=== PATIENT | male | born 1945 | race Caucasian/White ===

== ENCOUNTER 2020-03-29 11:28 | Inpatient (IN) | payer MEDICARE, MEDICAID ==
[~2020-03-29] VITALS: Ht 182.9 cm; Wt 105.7 kg
[2020-03-29 11:35] VITALS: BP 222/114
[2020-03-29] MEDS ORDERED: CYMBALTA30 MG ORAL (11:38)
[2020-03-29] MEDS ORDERED: DEPAKOTE250 MG PO (11:38)
[2020-03-29] MEDS ORDERED: FAMOTIDINE20 MG ORAL (11:38)
[2020-03-29] MEDS ORDERED: DEBROX15 M1 BOTH EARS (11:38)
[2020-03-29] MEDS ORDERED: Omnipaque-300 100ml vial INJ PRN (11:45)
[2020-03-29] MEDS ORDERED: cefTRIAXone 1 GM in NS 55 ML IVPB ONE (11:45)
--- NOTE | 2020-03-29 11:45 | NUR ---
ED Nurse Note: IV line was established on right AC 18ga, blood collected sent to lab
[2020-03-29] MEDS ORDERED: NAMENDA10 MG ORAL (11:46)
[2020-03-29] MEDS ORDERED: HYDROXYZINE HCL10 M1 PO (11:46)
[2020-03-29] MEDS ORDERED: TIMOPTIC 0.5%1 DROP BOTH EYES (11:46)
[2020-03-29] MEDS ORDERED: TRAMADOL HCL50 MG ORAL (11:46)
[2020-03-29] MEDS ORDERED: PROSCAR5 MG ORAL (11:46)
[2020-03-29] MEDS ORDERED: SYNTHROID100 MCG ORAL (11:46)
[2020-03-29] MEDS ORDERED: LORATADINE10 M1 PO (11:46)
[2020-03-29] MEDS ORDERED: GLUCOPHAGE500 MG ORAL (11:46)
[2020-03-29] MEDS ORDERED: FLOMAX0.4 MG ORAL (11:46)
[2020-03-29] MEDS ORDERED: MELATONIN5 M5 ORAL (11:46)
--- NOTE | 2020-03-29 11:48 | Emergency Room Report ---
History of Present Illness General Chief Complaint: Generalized Weakness Source: Patient Present Illness HPI 74-year-old male history of CVA, hypertension, presents with dysuria x4 days generalized weakness, subjective fever/chills, no known aggravating relieving factors endorses some suprapubic pain, severity is mild, intermittent, no diarrhea no cough no congestion patient presents for evaluation treatment Allergies: Coded Allergies: ASPIRIN (Verified Allergy, Unknown, 03/29/20) ENOXAPARIN (Verified Allergy, Unknown, 03/29/20) HEPARIN (Verified Allergy, Unknown, 03/29/20) PEANUT (Verified Allergy, Unknown, 03/29/20) PENICILLINS (Verified Allergy, Unknown, 03/29/20) Uncoded Allergies: SEAFOOD (Allergy, Unknown, 03/29/20) COVID-19 Screening Contact w/high risk pt: No Experienced COVID-19 symptoms?: No COVID-19 Testing performed SENIOR STRATEGY MANAGER: No Patient History Past Medical History: see triage record Reviewed Nursing Documentation: PMH: Agreed; PSxH: Agreed Nursing Documentation-PMH Past Medical History: No History, Except For Review of Systems All Other Systems: negative except mentioned in HPI Physical Exam Vital Signs Date Time Temp Pulse Resp B/P (MAP) Pulse Ox O2 Delivery O2 Flow Rate FiO2 03/29/20 11:20 73 16 190/100 (130) 98 Room Air Sp02 EP Interpretation: reviewed, normal General Appearance: well appearing, no apparent distress, alert Head: normocephalic, atraumatic Eyes: bilateral eye PERRL, bilateral eye EOMI ENT: uvula midline, moist mucus membranes Neck: supple, thyroid normal, supple/symm/no masses Respiratory: lungs clear, no respiratory distress, no retraction, no accessory muscle use Cardiovascular #1: normal peripheral pulses, regular rate, rhythm, no edema, no gallop, no murmur Gastrointestinal: soft, no guarding, no rebound, tenderness - Suprapubically Genitourinary: no CVA tenderness Musculoskeletal: normal inspection Neurologic: alert, responsive Psychiatric: mood/affect normal Skin: no rash, warm/dry Medical Decision Making Diagnostic Impression: Primary Impression: Episode of generalized weakness Additional Impression: UTI (urinary tract infection) Qualified Codes: N30.00 - Acute cystitis without hematuria ER Course 74-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 Pathak Laboratory Tests Test 03/29/20 11:50 03/29/20 13:30 White Blood Count 14.8 K/UL (4.8-10.8) H Red Blood Count 6.42 M/UL (4.70-6.10) H Hemoglobin 19.4 G/DL (14.2-18.0) *H Hematocrit 57.8 % (42.0-52.0) H Mean Corpuscular Volume 90 FL (80-99) Mean Corpuscular Hemoglobin 30.2 PG (27.0-31.0) Mean Corpuscular Hemoglobin Concent 33.5 G/DL (32.0-36.0) Red Cell Distribution Width 13.6 % (11.6-14.8) Platelet Count 170 K/UL (150-450) Mean Platelet Volume 6.6 FL (6.5-10.1) Neutrophils (%) (Auto) 79.6 % (45.0-75.0) H Lymphocytes (%) (Auto) 15.7 % (20.0-45.0) L Monocytes (%) (Auto) 4.4 % (1.0-10.0) Eosinophils (%) (Auto) 0.0 % (0.0-3.0) Basophils (%) (Auto) 0.3 % (0.0-2.0) Prothrombin Time 10.7 SEC (9.30-11.50) Prothrombin Time INR 1.0 (0.9-1.1) Activated Partial Thromboplast Time 28 SEC (23-33) Sodium Level 130 MMOL/L (136-145) L Potassium Level 4.2 MMOL/L (3.5-5.1) Chloride Level 95 MMOL/L (98-107) L Carbon Dioxide Level 27 MMOL/L (21-32) Anion Gap 9 mmol/L (5-15) Blood Urea Nitrogen 14 mg/dL (7-18) Creatinine 1.0 MG/DL (0.55-1.30) Estimated Glomerular Filtration Rate > 60 mL/min (>60) Glucose Level 188 MG/DL (74-106) H Lactic Acid Level 1.20 mmol/L (0.4-2.0) Calcium Level 8.9 MG/DL (8.5-10.1) Phosphorus Level 2.9 MG/DL (2.5-4.9) Magnesium Level 1.7 MG/DL (1.8-2.4) L Total Bilirubin 0.6 MG/DL (0.2-1.0) Aspartate Amino Transferase (AST) 13 U/L (15-37) L Alanine Aminotransferase (ALT) 8 U/L (12-78) L Alkaline Phosphatase 85 U/L (46-116) Total Creatine Kinase 31 U/L (26-308) Troponin I 0.001 ng/mL (0.000-0.056) Pro-B-Type Natriuretic Peptide 2896 pg/mL (0-125) H Total Protein 7.9 G/DL (6.4-8.2) Albumin 3.3 G/DL (3.4-5.0) L Globulin 4.6 g/dL Albumin/Globulin Ratio 0.7 (1.0-2.7) L Lipase 63 U/L (73-393) L Urine Color Pale yellow Urine Appearance Slightly cloudy Urine pH 8 (4.5-8.0) Urine Specific [place] 1.010 (1.005-1.035) Urine Protein 1+ (NEGATIVE) H Urine Glucose (UA) 1+ (NEGATIVE) H Urine Ketones Negative (NEGATIVE) Urine Blood 3+ (NEGATIVE) H Urine Nitrite Negative (NEGATIVE) Urine Bilirubin Negative (NEGATIVE) Urine Urobilinogen Normal MG/DL (0.0-1.0) Urine Leukocyte Esterase 3+ (NEGATIVE) H Urine RBC 0-2 /HPF (0 - 0) H Urine WBC 20-30 /HPF (0 - 0) H Urine Squamous Epithelial Cells Occasional /LPF Urine Bacteria Few /HPF (NONE) Microbiology Date/Time Source Procedure Growth Status 03/29/20 11:50 Nasopharynx SARS-CoV-2 RdRp Gene Assay - Final Complete EKG Diagnostic Results Troponin ordered: Yes When was troponin ordered?: Mar 29, 2020 EKG Time: 11:43 EP Interpretation: NSR, rate 94, QTc 432, no acute escalations, left axis deviation Rhythm Strip Diag. Results Rhythm Strip Time: 14:31 EP Interpretation: yes Rate: 95 Rhythm: NSR, no PVC's, no ectopy Chest X-Ray Diagnostic Results Chest X-Ray Diagnostic Results : Chest X-Ray Ordered: Yes # of Views/Limited/Complete: 1 View Indication: Chest Pain EP Interpretation: Yes Interpretation: no consolidation, no effusion, no pneumothorax, no acute cardiopulmonary disease Impression: No acute disease Electronically Signed by: Geovani Lopez MD CT/MRI/US Diagnostic Results CT/MRI/US Diagnostic Results : Impression Procedure: CT Abdomen Pelvis w/Contrast Clinical Indication: Abdominal pain Technique: No oral contrast utilized, per emergency room physician request IV administration nonionic contrast. Venous phase spiral acquisition obtained through the abdomen and pelvis. Multiplanar reconstructions were generated. Total dose length product 1000 mGycm. CTDIvol(s) 19 mGy. Dose reduction achieved using automated exposure control Comparison: none Findings: Lack of enteric contrast limits assessment of the GI tract. No evidence of diverticulosis or diverticulitis. The appendix is normal. No small bowel distention. No free or loculated intraperitoneal gas or fluid. Surgical clips are seen in th e anterior peritoneal space. The distal esophagus, stomach, duodenum are unremarkable. The gallbladder has been removed. No biliary ductal dilatation. The pancreas, spleen, adrenals, kidneys are unremarkable. The bladder demonstrates mild wall thickening which in part may be an artifact of under distention. The prostate is unremarkable. The lung bases demonstrate suggestion of mild pulmonary venous congestion. The heart is borderline enlarged. There is bilateral gynecomastia. The bones demonstrate degenerative spondylosis changes. Impression: Limited assessment of the GI tract, due to lack of enteric contrast administration. Equivocal mild urinary bladder wall thickening, could in part be an artifact of under distention but cystitis possible. Correlate with clinical findings Evidence of prior cholecystectomy Borderline cardiomegaly with suggestion of mild pulmonary venous congestion Incidental findings as noted, including bilateral gynecomastia, degenerative spondylosis The CT scanner at [facility] is accredited by the [employer] and the scans are performed using protocols designed to limit radiation exposure to as low as reasonably achievable to attain images of sufficient resolution adequate for diagnostic evaluation. Dictated By: Sadiq Atkinson MD Electronically Signed By:Sadiq Atkinson MD Signed Date/Time03/29/20 [id number] CC: Geovani Lopez MD Procedure: CT Head no Contrast Indications: Headache Technique: Spiral acquisitions obtained through the brain. Angled axial and coronal 5 x 5 mm slices were reconstructed. Total dose length product 1356 mGycm. CTDI vol(s) 53 x 2 mGy. Dose reduction achieved using automated exposure control Comparison: None. Findings: There is age-related enlargement of the ventricles and extra axial CSF spaces. There is periventricular deep white matter low-attenuation, consistent with chronic microvascular ischemic changes. The eli-white differentiation is otherwise unremarkable. No acute intracranial hemorrhage or edema, mass effect, nor midline shift. The mastoids are clear. The calvarium is intact. Visualized orbits and sinuses are unremarkable. Impression: Chronic and age-related changes Negative for acute intracranial bleed or mass effect The CT scanner at [facility] is accredited by the [employer] and the scans are performed using protocols designed to limit radiation exposure to as low as reasonably achievable to attain images of sufficient resolution adequate for diagnostic evaluation. Indications: Last Vital Signs Date Time Temp Pulse Resp B/P (MAP) Pulse Ox O2 Delivery O2 Flow Rate FiO2 03/29/20 11:20 73 16 190/100 (130) 98 Room Air Disposition: ADMITTED INPATIENT Condition: Stable Geovani Lopez MD Mar 29, 2020 11:48
[2020-03-29] MEDS ORDERED: Labetalol 5mg/ml 20ml vial IV ONE (12:00)
--- NOTE | 2020-03-29 12:00 | NUR ---
ED Nurse Note: Patient arrived with RA 26 from SNF due to onset of weakness. Patient presented extremely weak, sleepy. Patient AAO x3, BP 222/114 other VSS at this time.
[2020-03-29 12:25] LABS: BASOPHILS % (AUTO) 0.3 % (0.0-2.0); HEMATOCRIT 57.8 % (42.0-52.0); LYMPHOCYTES % (AUTO) 15.7 % (20.0-45.0); MEAN CORPUSCULAR VOLUME 90 FL (80-99); MONOCYTES % (AUTO) 4.4 % (1.0-10.0); NEUTROPHILS % (AUTO) 79.6 % (45.0-75.0); PLATELET COUNT 170 K/UL (150-450); RED BLOOD COUNT 6.42 M/UL (4.70-6.10); RED CELL DISTRIBUTION WIDTH 13.6 % (11.6-14.8); WHITE BLOOD COUNT 14.8 K/UL (4.8-10.8)
[2020-03-29 12:28] LABS: HEMOGLOBIN 19.4 G/DL (14.2-18.0)
[2020-03-29 12:30] LABS: ANION GAP 9 mmol/L (5-15); BLOOD UREA NITROGEN 14 mg/dL (7-18); CALCIUM 8.9 MG/DL (8.5-10.1); CARBON DIOXIDE 27 MMOL/L (21-32); CHLORIDE 95 MMOL/L (98-107); POTASSIUM 4.2 MMOL/L (3.5-5.1); SODIUM 130 MMOL/L (136-145)
[2020-03-29 12:40] LABS: ALANINE AMINOTRANSFERASE 8 U/L (12-78); ALBUMIN 3.3 G/DL (3.4-5.0); ALBUMIN/GLOBULIN RATIO 0.7 (1.0-2.7); ALKALINE PHOSPHATASE 85 U/L (46-116); ASPARTATE AMINO TRANSFERASE 13 U/L (15-37); BILIRUBIN,TOTAL 0.6 MG/DL (0.2-1.0); PHOSPHORUS 2.9 MG/DL (2.5-4.9)
[2020-03-29 12:54] LABS: CREATINE KINASE 31 U/L (26-308)
--- NOTE | 2020-03-29 12:57 | NUR ---
ED Nurse Note: Pt taken to CT head on sridhar
--- NOTE | 2020-03-29 13:24 | NUR ---
ED Nurse Note: Patient is back, NAD noted
--- NOTE | 2020-03-29 13:31 | NUR ---
ED Nurse Note: urine collected via straight cath sent to lab
[2020-03-29 13:51] LABS: APPEARANCE,URINE SLIGHTLY CLOUDY; BILIRUBIN, URINE NEGATIVE (NEGATIVE); COLOR,URINE PALE YELLOW; GLUCOSE, URINE (UA) 1+ (NEGATIVE); KETONES,URINE NEGATIVE (NEGATIVE); LEUKOCYTE ESTERASE ,URINE 3+ (NEGATIVE); NITRITE,URINE NEGATIVE (NEGATIVE); PH,URINE 8 (4.5-8.0); PROTEIN,URINE 1+ (NEGATIVE); UROBILINOGEN,URINE NORMAL MG/DL (0.0-1.0)
--- NOTE | 2020-03-29 14:21 | Diagnostic Imaging Report ---
Indications: Headache Technique: Spiral acquisitions obtained through the brain. Angled axial and coronal 5 x 5 mm slices were reconstructed. Total dose length product 1356 mGycm. CTDI vol(s) 53 x 2 mGy. Dose reduction achieved using automated exposure control Comparison: None. Findings: There is age-related enlargement of the ventricles and extra axial CSF spaces. There is periventricular deep white matter low-attenuation, consistent with chronic microvascular ischemic changes. The eli-white differentiation is otherwise unremarkable. No acute intracranial hemorrhage or edema, mass effect, nor midline shift. The mastoids are clear. The calvarium is intact. Visualized orbits and sinuses are unremarkable. Impression: Chronic and age-related changes Negative for acute intracranial bleed or mass effect The CT scanner at [facility] is accredited by the [employer] and the scans are performed using protocols designed to limit radiation exposure to as low as reasonably achievable to attain images of sufficient resolution adequate for diagnostic evaluation. Indications: Technique: Spiral acquisitions obtained through the brain. Angled axial and coronal 5 x 5 mm slices were reconstructed. Total dose length product 1356 mGycm. CTDI vol(s) 53 x 2 mGy. Dose reduction achieved using automated exposure control Comparison: Findings: Impression: The CT scanner at [facility] is accredited by the [employer] and the scans are performed using protocols designed to limit radiation exposure to as low as reasonably achievable to attain images of sufficient resolution adequate for diagnostic evaluation.
--- NOTE | 2020-03-29 14:28 | Diagnostic Imaging Report ---
Clinical Indication: Abdominal pain Technique: No oral contrast utilized, per emergency room physician request IV administration nonionic contrast. Venous phase spiral acquisition obtained through the abdomen and pelvis. Multiplanar reconstructions were generated. Total dose length product 1000 mGycm. CTDIvol(s) 19 mGy. Dose reduction achieved using automated exposure control Comparison: none Findings: Lack of enteric contrast limits assessment of the GI tract. No evidence of diverticulosis or diverticulitis. The appendix is normal. No small bowel distention. No free or loculated intraperitoneal gas or fluid. Surgical clips are seen in the anterior peritoneal space. The distal esophagus, stomach, duodenum are unremarkable. The gallbladder has been removed. No biliary ductal dilatation. The pancreas, spleen, adrenals, kidneys are unremarkable. The bladder demonstrates mild wall thickening which in part may be an artifact of under distention. The prostate is unremarkable. The lung bases demonstrate suggestion of mild pulmonary venous congestion. The heart is borderline enlarged. There is bilateral gynecomastia. The bones demonstrate degenerative spondylosis changes. Impression: Limited assessment of the GI tract, due to lack of enteric contrast administration. Equivocal mild urinary bladder wall thickening, could in part be an artifact of under distention but cystitis possible. Correlate with clinical findings Evidence of prior cholecystectomy Borderline cardiomegaly with suggestion of mild pulmonary venous congestion Incidental findings as noted, including bilateral gynecomastia, degenerative spondylosis The CT scanner at [facility] is accredited by the [employer] and the scans are performed using protocols designed to limit radiation exposure to as low as reasonably achievable to attain images of sufficient resolution adequate for diagnostic evaluation.
[2020-03-29 14:35] VITALS: BP 196/108
--- NOTE | 2020-03-29 16:31 | Diagnostic Imaging Report ---
Indication: Shortness of breath Technique: One view of the chest Comparison: none Findings: Lungs and pleural spaces are clear. Heart size is normal. Impression: No acute process
[2020-03-29 17:17] VITALS: BP 178/103
--- NOTE | 2020-03-29 17:36 | NUR ---
ED Nurse Note: Arias catheter was placed 16F, patient toklerated procedure well
[2020-03-29] MEDS ORDERED: Albuterol/Ipratropium 3ml neb HHN PRN (18:00)
[2020-03-29] MEDS ORDERED: Enalaprilat 2.5mg/2ml Inj IV PRN (18:00)
[2020-03-29] MEDS ORDERED: Labetalol 5mg/ml 20ml vial IV PRN (18:00)
[2020-03-29] MEDS ORDERED: dilTIAZem HCl 25mg/5ml Inj IV PRN (18:00)
[2020-03-29] MEDS ORDERED: Nitroglycerin Subl 0.4mg tab SL PRN (18:00)
[2020-03-29] MEDS ORDERED: Memantine 10mg tab ORAL SCH (18:00)
--- NOTE | 2020-03-29 18:40 | NUR ---
ED Nurse Note: report was given to MONSTER Sloan.
--- NOTE | 2020-03-29 18:45 | NUR ---
ED Nurse Note: Patient was admited to TELE due to generalized weakness, uncontrolled hypertension. Patient waqs transfered to the unit via gurney by ACLS protocol. Patient weak, but AAO x3, BP 197/108, other VSS at this time, has even non labnored breathing, sating 99% on RA.
--- NOTE | 2020-03-29 18:46 | NUR ---
NURSE NOTES: Pt transferred from ED via gurney and received report from MONSTER Love. Pt AOX2; able to make needs known. Pt changed to hospital gown and placed quality assurance monitor final; no belongings; skin assessment done and noted with stage 1 bilateral buttocks and bilateral heels. Pt came with f/c draining well to gravity with clear yellow urine; Peripheral IV line on R AC; patent and intact. Pt made comfortable; repositioned and call light within reach; bed in low position and locked. Will endorse plan of care.
--- NOTE | 2020-03-29 19:25 | NUR ---
NURSE HAND-OFF REPORT: Important Events on Shift:new admission Patient Status: hypertensive Diet: CCHO medium Pending Orders: n/a Pending Results/Labs:n/a Pending MD notification:n/a Latest Vital Signs: Temperature 98.1 , Pulse 98 , B/P 178 /103 , Respiratory Rate 20 , O2 SAT 87 , Room Air, O2 Flow Rate . Vital Sign Comment: hypertensive EKG Rhythm: Sinus Rhythm Rhythm change?: MD Notified?: - MD Response: Latest Valladares Fall Score: Fall Risk: Safety Measures: Call light , Bed Alarm , Side Rails , Bed position . Fall Precautions: Report given to :MONSTER Roy
--- NOTE | 2020-03-29 19:30 | NUR ---
NURSE NOTES: Received pt and report from MONSTER Almeida. Observed pt resting in bed with both eyes closed; arousable to voice. Pt is A/Ox2-3. lunchroom monitor is in placed; pt is NSR. IV site intact, asymptomatic and patent. Bed is in the lowest position and locked. Call light and bedside table is within reach. No signs/symptoms of acute distress noted. Received orders from Dr. Frazier. Will note and carry out.
[2020-03-29 20:00] VITALS: BP 166/104
[2020-03-29] MEDS: timoloL maleate 0.5% Op Soln 2.5ml BOTH EYES SCH (20:28)
[2020-03-29] MEDS: Memantine 10mg tab ORAL SCH (20:28)
--- NOTE | 2020-03-29 21:05 | History & Physical ---
History and Physical History & Physicial EKG: NSR with 1st degree AV block, VR 94, PVC, LVH, left anterior fascicular block Jacob Tavera MD Mar 29, 2020 21:05
--- NOTE | 2020-03-29 21:21 | NUR ---
NURSE NOTES: Received orders from Dr. Tavera. Will note and carry out.
[2020-03-29] MEDS: Aztreonam Inj 1 GM in NS 50 ML IVPB SCH (21:52)
[2020-03-29] MEDS: NovoLOG Insulin Flexpen SUBQ SCH (21:55)
[2020-03-30] VITALS: BP 159/92
[2020-03-30 01:52] LABS: BILIRUBIN, URINE 1+ (NEGATIVE); GLUCOSE, URINE (UA) NEGATIVE (NEGATIVE); KETONES,URINE 1+ (NEGATIVE); LEUKOCYTE ESTERASE ,URINE 3+ (NEGATIVE); NITRITE,URINE NEGATIVE (NEGATIVE); PH,URINE 5 (4.5-8.0); PROTEIN,URINE 3+ (NEGATIVE); UROBILINOGEN,URINE 4 MG/DL (0.0-1.0)
[2020-03-30 03:00] LABS: APPEARANCE,URINE CLOUDY; COLOR,URINE YELLOW
[2020-03-30 04:00] VITALS: BP 154/90
[2020-03-30] MEDS: Aztreonam Inj 1 GM in NS 50 ML IVPB SCH ×3 (06:00→21:40)
[2020-03-30] MEDS: NovoLOG Insulin Flexpen SUBQ SCH ×4 (06:01→21:00)
--- NOTE | 2020-03-30 06:32 | NUR ---
NURSE NOTES: Informed Dr. Frazier that pt is in SR w/ 1st degree HB. Pt is asymptomatic. Awaiting call back.
--- NOTE | 2020-03-30 07:18 | NUR ---
NURSE HAND-OFF REPORT: Important Events on Shift: Pt was admitted for Weakness/UTI. Notified Dr. Frazier that pt is in SR w/ 1st degree HB. Dr. Frazier ordered 2D Echo for today. Patient Status: Stable Diet: CCHO (M) Pending Orders: 2D echo Pending Results/Labs: N Pending notification: N Latest Vital Signs: Temperature 99.3 , Pulse 86 , B/P 154 /90 , Respiratory Rate 19 , O2 SAT 97 , Room Air, O2 Flow Rate . EKG Rhythm: SR w/1st degree HB Rhythm change?: N MD Notified?: Y MD Response: 2D Echo ordered Latest Valladares Fall Score: 50 Fall Risk: High Risk Safety Measures: Call light Within Reach, Bed Alarm Zone 1, Side Rails Side Rails x2, Bed position Low and Locked. Fall Precautions: Yellow Socks Yellow Gown Door Sign Patient Fall Education Report given MONSTER Wong.
[2020-03-30 07:33] LABS: BASOPHILS % (AUTO) 0.4 % (0.0-2.0); HEMATOCRIT 53.1 % (42.0-52.0); HEMOGLOBIN 17.6 G/DL (14.2-18.0); LYMPHOCYTES % (AUTO) 21.6 % (20.0-45.0); MEAN CORPUSCULAR VOLUME 91 FL (80-99); MONOCYTES % (AUTO) 9.2 % (1.0-10.0); NEUTROPHILS % (AUTO) 68.8 % (45.0-75.0); PLATELET COUNT 151 K/UL (150-450); RED BLOOD COUNT 5.81 M/UL (4.70-6.10); RED CELL DISTRIBUTION WIDTH 14.1 % (11.6-14.8); WHITE BLOOD COUNT 16.4 K/UL (4.8-10.8)
[2020-03-30 07:50] LABS: CHOLESTEROL 164 MG/DL (< 200); HDL CHOLESTEROL 50 MG/DL (40-60); TRIGLYCERIDES 132 MG/DL (30-150)
[2020-03-30 08:00] VITALS: BP 129/87
--- NOTE | 2020-03-30 08:00 | NUR ---
NURSE NOTES: Received pt and report from MONSTER Roy. Pt is sleeping in bed and on room air with no sign of sob or resp distress. Pt is AOx2 and weak phonation noted. Pt is on dust sampler with SR noted. Pt has right AC IV site that is c/d/i. Skin was assessed and has blanchable redness to sacral area was noted, optifoam was placed preventive. Pt has 16 fr patel that is draining to gravity, romy colored urine noted. Bed is in the lowest position and locked. Call light within reach, will continue with plan of care.
[2020-03-30] MEDS: Memantine 10mg tab ORAL SCH ×2 (09:30→21:00)
[2020-03-30] MEDS: DULoxetine 30mg cap ORAL SCH (09:30)
[2020-03-30] MEDS: Tamsulosin 0.4mg cap ORAL SCH (09:30)
[2020-03-30] MEDS: timoloL maleate 0.5% Op Soln 2.5ml BOTH EYES SCH ×2 (09:33→16:54)
--- NOTE | 2020-03-30 10:30 | History and Physical Report ---
DATE OF ADMISSION: 03/29/2020 CHIEF COMPLAINT: Generalized weakness. HISTORY OF PRESENT ILLNESS: This is a 74-year-old very unfortunate gentleman with past medical history significant for heart failure, major depression, history of dysphagia, GERD, primary osteoarthritis of the right ankle, contracted right elbow, dementia, bipolar disorder, chronic obstructive pulmonary disease, BPH, hypothyroidism, diabetes type 2, epilepsy, paraplegia, history of CVA, who presented to the hospital from nursing facility, [facility] due to the fever and chills. The patient noted by the nursing facility has spiking fever and some suprapubic fullness, mild intermittent pain. No diarrhea. No cough. No chest congestion. Shortly after initial evaluation in the emergency department, the patient was admitted to the hospital with sepsis, secondary to urinary tract infection as well as hematuria. PAST MEDICAL HISTORY/PAST SURGICAL HISTORY: As above, history of CVA, hypertension, dementia, bipolar disorder, COPD, BPH, hypothyroidism, diabetes type 2, major depression, epilepsy, paraplegia, heart failure. The patient has a history of fracture of the fifth lumbar vertebral body, sacrum fracture. MEDICATIONS: At [facility], please refer to medication reconciliation. ALLERGIES: To aspirin, heparin, penicillin, Lovenox, peanuts, peanut butter, and seafood. SOCIAL HISTORY: senior living resident. No smoking, alcohol, or drugs. FAMILY HISTORY: Noncontributory. REVIEW OF SYSTEMS: Very limited secondary to the patient's status. The patient is nonverbal, cannot follow commands appropriately. According to nursing facility documentation, the patient had fever and chills. No nausea or vomiting, diarrhea was reported. PHYSICAL EXAMINATION: VITAL SIGNS: On admission, temperature was 98.1, pulse of 105, respirations 20, blood pressure 178/103. GENERAL: The patient awake, responsive to painful and verbal commands, opens his eyes, however, cannot follow commands appropriately. HEAD AND NECK: Pupils are equal and reactive to light. Anicteric. NECK: Supple. No JVD. LUNGS: Good air entry. No wheezing or rhonchi. Decreased air in bases. HEART: S1, S2. Distant heart sounds. No murmurs or gallops. ABDOMEN: Soft, nondistended, nontender. Morbidly obese. Bowel sounds present. EXTREMITIES: No cyanosis, clubbing, or edema. NEUROLOGIC: Examination is very limited secondary to the patient's status. The patient is unable to follow commands, however, he is moving spontaneously extremities, lower extremities weaker than upper extremities, contracted lower extremities. RECTAL: Refused and deferred. GENITOURINARY: Refused and deferred. PSYCHIATRIC: Mood and affect is unable to obtain. LABORATORY AND DIAGNOSTIC DATA: Laboratory on admission, WBC of 14, hemoglobin is 19, hematocrit is 57, platelets is 170. PT of 10, INR 1.0, PTT of 28. Sodium 130, potassium 4.2, chloride 95, bicarb 27, BUN 14, creatinine 1.0, and glucose is 188. Lactic acid is 1.20. Magnesium is 1.7, total bilirubin of 0.6, phosphorus is 2.9. Troponin 0.01. ProBNP of 2896. Albumin is 3.3. Lipase is 63. UA has +1 protein, +1 glucose, negative ketone, +3 blood, 20 to 30 wbc, +3 leukocytes. COVID-19 rapid test is negative. Chest x-ray, no acute process. CT scan of the abdomen and pelvis noted the patient has lack of enteric contrast limits the assessment of the GI tract. No evidence of diverticulosis or diverticulitis. Appendix is normal. No small bowel distention, no free or loculated intraperitoneal gas or fluid. Surgical clips are seen in the anterior and peritoneal space. The distal esophagus, esophagus, stomach and duodenum are unremarkable. Gallbladder has been removed. Equivocal and mild urinary bladder wall thickening could be artifact. Evidence of prior cholecystectomy, borderline cardiomegaly with suggestion of mild pulmonary venous congestion. Incidental finding noted the patient has bilateral gynecomastia with degenerative spondylolysis. The patient's CT of the head, chronic and age-related changes, negative for acute intracranial bleeding or mass effect. ASSESSMENT: 1. Sepsis secondary to urinary tract infection. 2. History of CVA. 3. Prior history of heart failure. 4. Major depression disorder. 5. Diabetic type 2. 6. BPH. 7. Bipolar disorder. 8. COPD. 9. Hyponatremia. 10. Dehydration. 11. The patient has a history of hypothyroidism. PLAN: Admit the patient to monitor unit. We follow up with laboratory as well as culture. We will start the patient on broad-spectrum antibiotics with Azactam. We will follow up with blood glucose level monitoring, Accu-Cheks. Code status is DNR as per . We will follow up with Dr. Frazier from Pulmonary Critical Care and Dr. Kirk from Nephrology. Jacob Tavera M.D. DR: PREETI JOB#: [id number] CC:
--- NOTE | 2020-03-30 11:58 | NUR ---
CASE MANAGEMENT:REVIEW 74 YR OLD MALE BIBA FROM [facility] CC: GENERALIZED WEAKNESS SI: UTI 98.1 73 16 222/114 98% ON RA WBC+14.8 IS: 1L NS BOLUS IV ROCEPHIN IV LABETALOL IV HYDRALAZINE CT HEAD/ABD/PELVIS CXR : TO TELEMETRY
[2020-03-30 12:00] VITALS: BP 144/83
--- NOTE | 2020-03-30 12:54 | Consultation ---
Consult Note Consult Note Asked to evaluate at the request of Dr. Tavera for fluid and electrolyte management 74-year-old male history of CVA, hypertension, presents with dysuria x4 days generalized weakness, subjective fever/chills, no known aggravating relieving factors endorses some suprapubic pain, severity is mild, intermittent, no diarrhea no cough no congestion patient presents for evaluation treatment Allergies: Coded Allergies: ASPIRIN (Verified Allergy, Unknown, 03/29/20) ENOXAPARIN (Verified Allergy, Unknown, 03/29/20) HEPARIN (Verified Allergy, Unknown, 03/29/20) PEANUT (Verified Allergy, Unknown, 03/29/20) PENICILLINS (Verified Allergy, Unknown, 03/29/20) Uncoded Allergies: SEAFOOD (Allergy, Unknown, 03/29/20) COVID-19 Screening Contact w/high risk pt: No Experienced COVID-19 symptoms?: No COVID-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 The patient has a history of fracture of the fifth lumbar vertebral body, sacrum fracture. Assessment/Plan Severe dehydration Hyponatremia Sepsis, UTI BPH Depression, bipolar disease Hypothyroidism Hydrate Monitor electrolyte renal parameters Per orders Montana Kirk MD Mar 30, 2020 12:54
--- NOTE | 2020-03-30 13:02 | Consultation ---
History of Present Illness General Date patient seen: Mar 30, 2020 Chief Complaint: Generalized Weakness Present Illness HPI 74-year-old male with PMJ of CVA, hypertension, hypothyroid, DM, Dementia, contractures, [facility] resident presented to ER with dysuria x4 days, generalized weakness, some suprapubic pain. Pts systolic BP on presentation was 190 adn he had leukocytosis and pyuria. He is admitted for further management. Allergies: Coded Allergies: ASPIRIN (Verified Allergy, Unknown, 03/29/20) ENOXAPARIN (Verified Allergy, Unknown, 03/29/20) HEPARIN (Verified Allergy, Unknown, 03/29/20) PEANUT (Verified Allergy, Unknown, 03/29/20) PENICILLINS (Verified Allergy, Unknown, 03/29/20) Uncoded Allergies: SEAFOOD (Allergy, Unknown, 03/29/20) Medication History Scheduled Carbamide Peroxide (Debrox), 5 DROP BOTH EARS TWICE A DAY, (Reported) Divalproex Sodium* (Depakote*), 750 MG PO Q12HR, (Reported) Duloxetine Hcl* (Cymbalta*), 30 MG ORAL DAILY, (Reported) Famotidine* (Pepcid 20mg tablet*), 20 MG ORAL DAILY, (Reported) Finasteride* (Proscar*), 5 MG ORAL DAILY, (Reported) Levothyroxine Sodium* (Synthroid*), 100 MCG ORAL DAILY, (Reported) Loratadine (Claritin*), 10 MG PO DAILY, (Reported) Memantine Hcl* (Namenda*), 10 MG ORAL TWICE A DAY, (Reported) Metformin Hcl* (Glucophage*), 1,000 MG ORAL DAILY, (Reported) Tamsulosin HCl (Flomax), 0.4 MG ORAL DAILY, (Reported) Timolol Maleate (Timolol Maleate), 1 DROP BOTH EYES TWICE A DAY, (Reported) Scheduled PRN Melatonin (Melatonin), 5 MG ORAL BEDTIME PRN for Insomnia, (Reported) Tramadol Hcl* (Ultram*), 50 MG ORAL Q4HR PRN for For Pain, (Reported) Miscellaneous Medications Hydroxyzine Hcl (Hydroxyzine Hcl), 5 MG PO, (Reported) Patient History Healthcare decision maker Resuscitation status Advanced Directive on File Past Medical/Surgical History Past Medical/Surgical History: (1) Seizure disorder (2) Depression (3) Hypothyroidism (4) Diabetes mellitus (5) Alzheimer's dementia (6) At high risk for aspiration Family History Family History: (1) Alzheimer's dementia (2) Diabetes mellitus (3) Hypothyroidism (4) Depression (5) Seizure disorder Review of Systems All Other Systems: negative except mentioned in HPI Physical Exam General Appearance: WD/WN, no apparent distress, alert Lines, tubes and drains: peripheral HEENT: normocephalic, anicteric Respiratory/Chest: chest wall non-tender, lungs clear Cardiovascular/Chest: normal peripheral pulses, normal rate, regular rhythm Abdomen: normal bowel sounds, non tender, soft, no organomegaly, no mass Genitourinary/Rectal: normal genital exam, normal rectal exam Last 24 Hour Vital Signs Date Time Temp Pulse Resp B/P (MAP) Pulse Ox O2 Delivery O2 Flow Rate FiO2 03/30/20 12:00 99.0 75 18 144/83 (103) 96 03/30/20 12:00 76 03/30/20 09:30 83 129/87 03/30/20 09:00 Room Air 03/30/20 08:00 86 03/30/20 08:00 99.5 83 20 129/87 (101) 95 03/30/20 04:00 86 03/30/20 04:00 99.3 86 19 154/90 (111) 97 03/30/20 00:00 98.8 97 20 159/92 (114) 97 03/30/20 00:00 100 03/29/20 21:53 93 161/94 03/29/20 20:00 100 03/29/20 20:00 99.3 105 20 166/104 (124) 99 03/29/20 19:13 Room Air 03/29/20 18:45 98.1 20 178/103 87 Room Air 03/29/20 17:17 98.1 20 178/103 87 Room Air 03/29/20 15:41 177/124 03/29/20 14:35 98.1 98 20 196/108 98 Room Air Intake and Output 03/29/20 03/30/20 19:00 07:00 Intake Total 1000 ml Output Total 250 ml Balance 1000 ml -250 ml IV Total 1000 ml Output Urine Total 250 ml Laboratory Tests Test 03/29/20 13:30 11/4/20 21:45 03/30/20 01:40 03/30/20 05:50 Urine Color Pale yellow Yellow Urine Appearance Slightly cloudy Cloudy Urine pH 8 (4.5-8.0) 5 (4.5-8.0) Urine Specific [place] 1.010 (1.005-1.035) 1.015 (1.005-1.035) Urine Protein 1+ (NEGATIVE) H 3+ (NEGATIVE) H Urine Glucose (UA) 1+ (NEGATIVE) H Negative (NEGATIVE) Urine Ketones Negative (NEGATIVE) 1+ (NEGATIVE) H Urine Blood 3+ (NEGATIVE) H 5+ (NEGATIVE) H Urine Nitrite Negative (NEGATIVE) Negative (NEGATIVE) Urine Bilirubin Negative (NEGATIVE) 1+ (NEGATIVE) H Urine Urobilinogen Normal MG/DL (0.0-1.0) 4 MG/DL (0.0-1.0) H Urine Leukocyte Esterase 3+ (NEGATIVE) H 3+ (NEGATIVE) H Urine RBC 0-2 /HPF (0 - 0) H Tntc /HPF (0 - 0) H Urine WBC 20-30 /HPF (0 - 0) H Tntc /HPF (0 - 0) H Urine Squamous Epithelial Cells Occasional /LPF None /LPF (NONE/OCC) Urine Bacteria Few /HPF (NONE) Moderate /HPF (NONE) H POC Whole Blood Glucose Pending 162 MG/DL (74-106) H Urine Ictotest Negative (NEGATIVE) Urine Osmolality 693 mOsm/kg (429-449) H Urine Random Sodium < 20 mmol/L (20-110) L White Blood Count 16.4 K/UL (4.8-10.8) H Red Blood Count 5.81 M/UL (4.70-6.10) Hemoglobin 17.6 G/DL (14.2-18.0) Hematocrit 53.1 % (42.0-52.0) H Mean Corpuscular Volume 91 FL (80-99) Mean Corpuscular Hemoglobin 30.3 PG (27.0-31.0) Mean Corpuscular Hemoglobin Concent 33.2 G/DL (32.0-36.0) Red Cell Distribution Width 14.1 % (11.6-14.8) Platelet Count 151 K/UL (150-450) Mean Platelet Volume 7.4 FL (6.5-10.1) Neutrophils (%) (Auto) 68.8 % (45.0-75.0) Lymphocytes (%) (Auto) 21.6 % (20.0-45.0) Monocytes (%) (Auto) 9.2 % (1.0-10.0) Eosinophils (%) (Auto) 0.0 % (0.0-3.0) Basophils (%) (Auto) 0.4 % (0.0-2.0) Prothrombin Time 10.9 SEC (9.30-11.50) Prothromb Time International Ratio 1.0 (0.9-1.1) Activated Partial Thromboplast Time 25 SEC (23-33) Osmolality 300 mOsm/kg (297-317) Uric Acid 4.4 MG/DL (2.6-7.2) C-Reactive Protein, Quantitative 0.9 mg/dL (0.00-0.90) Triglycerides Level 132 MG/DL (30-150) Cholesterol Level 164 MG/DL (< 200) LDL Cholesterol 88 mg/dL (<100) HDL Cholesterol 50 MG/DL (40-60) Cholesterol/HDL Ratio 3.3 (3.3-4.4) Thyroid Stimulating Hormone (TSH) 0.431 uiU/mL (0.358-3.740) Free Thyroxine 1.30 NG/DL (0.76-1.46) Free Triiodothyronine 1.4 pg/mL (2.3-4.2) L Cortisol Pending Test 03/30/20 12:00 POC Whole Blood Glucose Pending Microbiology Date/Time Source Procedure Growth Status 03/29/20 17:44 Rectum Received 03/29/20 13:30 Urine,Clean Catch Urine Culture - Preliminary NO GROWTH AFTER 24 HOURS Resulted Height (Feet): 6 Height (Inches): 0.00 Weight (Pounds): 233 Medications Current Medications Medications (Trade) Dose Ordered Sig/Ayah Route PRN Reason Start Time Stop Time Status Last Admin Dose Admin Acetaminophen (Tylenol) 650 mg Q4H PRN ORAL FEVER 03/29/20 18:00 04/28/20 17:59 Albuterol/ Ipratropium (Albuterol/ Ipratropium) 3 ml Q4H PRN HHN Shortness of Breath 03/29/20 18:00 04/03/20 17:59 Aztreonam 1 gm/ Sodium Chloride 50 ml @ 100 mls/hr EVERY 8 HOURS IVPB 03/29/20 22:00 04/05/20 21:59 03/30/20 06:00 Carvedilol (Coreg) 3.125 mg EVERY 12 HOURS ORAL 03/29/20 22:00 04/28/20 21:59 03/30/20 09:30 Dextrose (Dextrose 50%) 25 ml Q30M PRN IV Hypoglycemia 03/29/20 21:30 06/27/20 21:29 Dextrose (Dextrose 50%) 50 ml Q30M PRN IV Hypoglycemia 03/29/20 21:30 06/27/20 21:29 Diltiazem HCl (Cardizem) 10 mg Q1H PRN IV heart rate more than 120, 03/29/20 18:00 04/28/20 17:59 Divalproex Sodium (Depakote) 750 mg Q12HR ORAL 03/29/20 21:00 04/28/20 20:59 03/30/20 09:31 Duloxetine HCl (Cymbalta) 30 mg DAILY ORAL 03/30/20 09:00 06/28/20 08:59 03/30/20 09:30 Enalaprilat (Vasotec) 2.5 mg Q6H PRN IV sbp more than 160 03/29/20 18:00 04/28/20 17:59 Finasteride (Proscar) 5 mg DAILY ORAL 03/30/20 09:00 06/28/20 08:59 03/30/20 09:30 Insulin Aspart (NovoLOG) BEFORE MEALS AND HS SUBQ 03/29/20 22:00 06/27/20 21:59 03/30/20 06:01 Iohexol (OMNIPAQUE-300 100ml) 100 ml NOW PRN INJ Radiology Procedure 03/29/20 11:45 03/31/20 11:44 Labetalol HCl (Normodyne) 20 mg Q1H PRN IV sbp more than 180 03/29/20 18:00 04/28/20 17:59 Levothyroxine Sodium (Synthroid) 100 mcg Q24H ORAL 03/30/20 06:30 04/29/20 06:29 03/30/20 06:01 Memantine (Namenda) 10 mg Q12HR ORAL 03/29/20 21:00 04/28/20 20:59 03/30/20 09:30 Nitroglycerin (Ntg) 0.4 mg Q5M PRN SL Prn Chest Pain 03/29/20 18:00 04/28/20 17:59 Ondansetron HCl (Zofran) 4 mg Q6H PRN IVP Nausea & Vomiting 03/29/20 18:00 04/28/20 17:59 Pantoprazole (Protonix) 40 mg DAILY ORAL 03/30/20 09:00 04/29/20 08:59 03/30/20 09:30 Polyethylene Glycol (Miralax) 17 gm DAILYPRN PRN ORAL Constipation 03/29/20 18:00 04/28/20 17:59 Tamsulosin HCl (Flomax) 0.4 mg DAILY ORAL 03/30/20 09:00 04/29/20 08:59 03/30/20 09:30 Temazepam (Restoril) 15 mg HSPRN PRN ORAL Insomnia 03/29/20 18:00 04/05/20 17:59 Timolol Maleate (timoloL maleate 0.5% Op Soln) 1 drop TWICE A DAY BOTH EYES 03/29/20 20:00 04/28/20 19:59 03/30/20 09:33 Assessment/Plan Problem List: (1) UTI (urinary tract infection) ICD Codes: N39.0 - Urinary tract infection, site not specified SNOMED: 20187505 Qualifiers: Qualified Codes: N30.00 - Acute cystitis without hematuria (2) Episode of generalized weakness ICD Codes: R53.1 - Weakness SNOMED: 10456953 (3) Uncontrolled hypertension ICD Codes: I10 - Essential (primary) hypertension SNOMED: 05336776, 21900317 (4) At high risk for aspiration ICD Codes: Z91.89 - Other specified personal risk factors, not elsewhere classified SNOMED: 464582861 (5) Seizure disorder ICD Codes: G40.909 - Epilepsy, unspecified, not intractable, without status epilepticus SNOMED: 907408979 (6) Hypothyroidism ICD Codes: E03.9 - Hypothyroidism, unspecified SNOMED: 63334880 (7) Depression ICD Codes: F32.9 - Major depressive disorder, single episode, unspecified SNOMED: 12490031 (8) Alzheimer's dementia ICD Codes: G30.9 - Alzheimer's disease, unspecified; F02.80 - Dementia in other diseases classified elsewhere without behavioral disturbance SNOMED: 12938539 (9) Diabetes mellitus ICD Codes: E11.9 - Type 2 diabetes mellitus without complications SNOMED: 06307402 Assessment/Plan: nice culture IV abx IV fluids check electrolytes sliding scale and diabetic diet swallow study and NPO for now dvt prophylaxis alf meds reviewed. dvt prophylaxis. Gregory Frazier MD Mar 30, 2020 13:02
--- NOTE | 2020-03-30 13:25 | Infectious Diseases Prog Note ---
Assessment/Plan Assessment/Plan ID consult was dictated Subjective Allergies: Coded Allergies: ASPIRIN (Verified Allergy, Unknown, 03/29/20) ENOXAPARIN (Verified Allergy, Unknown, 03/29/20) HEPARIN (Verified Allergy, Unknown, 03/29/20) PEANUT (Verified Allergy, Unknown, 03/29/20) PENICILLINS (Verified Allergy, Unknown, 03/29/20) Uncoded Allergies: SEAFOOD (Allergy, Unknown, 03/29/20) Objective Last 24 Hour Vital Signs Date Time Temp Pulse Resp B/P (MAP) Pulse Ox O2 Delivery O2 Flow Rate FiO2 03/30/20 12:00 99.0 75 18 144/83 (103) 96 03/30/20 12:00 76 03/30/20 09:30 83 129/87 03/30/20 09:00 Room Air 03/30/20 08:00 86 03/30/20 08:00 99.5 83 20 129/87 (101) 95 03/30/20 04:00 86 03/30/20 04:00 99.3 86 19 154/90 (111) 97 03/30/20 00:00 98.8 97 20 159/92 (114) 97 03/30/20 00:00 100 03/29/20 21:53 93 161/94 03/29/20 20:00 100 03/29/20 20:00 99.3 105 20 166/104 (124) 99 03/29/20 19:13 Room Air 03/29/20 18:45 98.1 20 178/103 87 Room Air 03/29/20 17:17 98.1 20 178/103 87 Room Air 03/29/20 15:41 177/124 03/29/20 14:35 98.1 98 20 196/108 98 Room Air Height (Feet): 6 Height (Inches): 0.00 Weight (Pounds): 233 Microbiology Date/Time Source Procedure Growth Status 03/29/20 17:44 Rectum Received 03/29/20 13:30 Urine,Clean Catch Urine Culture - Preliminary NO GROWTH AFTER 24 HOURS Resulted 03/29/20 11:50 Nasopharynx SARS-CoV-2 RdRp Gene Assay - Final Complete Laboratory Tests Test 03/29/20 13:30 03/29/20 21:45 03/30/20 01:40 11/5/20 05:50 Urine Color Pale yellow Yellow Urine Appearance Slightly cloudy Cloudy Urine pH 8 (4.5-8.0) 5 (4.5-8.0) Urine Specific [place] 1.010 (1.005-1.035) 1.015 (1.005-1.035) Urine Protein 1+ (NEGATIVE) H 3+ (NEGATIVE) H Urine Glucose (UA) 1+ (NEGATIVE) H Negative (NEGATIVE) Urine Ketones Negative (NEGATIVE) 1+ (NEGATIVE) H Urine Blood 3+ (NEGATIVE) H 5+ (NEGATIVE) H Urine Nitrite Negative (NEGATIVE) Negative (NEGATIVE) Urine Bilirubin Negative (NEGATIVE) 1+ (NEGATIVE) H Urine Urobilinogen Normal MG/DL (0.0-1.0) 4 MG/DL (0.0-1.0) H Urine Leukocyte Esterase 3+ (NEGATIVE) H 3+ (NEGATIVE) H Urine RBC 0-2 /HPF (0 - 0) H Tntc /HPF (0 - 0) H Urine WBC 20-30 /HPF (0 - 0) H Tntc /HPF (0 - 0) H Urine Squamous Epithelial Cells Occasional /LPF None /LPF (NONE/OCC) Urine Bacteria Few /HPF (NONE) Moderate /HPF (NONE) H POC Whole Blood Glucose Pending 162 MG/DL (74-106) H Urine Ictotest Negative (NEGATIVE) Urine Osmolality 693 mOsm/kg (429-449) H Urine Random Sodium < 20 mmol/L (20-110) L White Blood Count 16.4 K/UL (4.8-10.8) H Red Blood Count 5.81 M/UL (4.70-6.10) Hemoglobin 17.6 G/DL (14.2-18.0) Hematocrit 53.1 % (42.0-52.0) H Mean Corpuscular Volume 91 FL (80-99) Mean Corpuscular Hemoglobin 30.3 PG (27.0-31.0) Mean Corpuscular Hemoglobin Concent 33.2 G/DL (32.0-36.0) Red Cell Distribution Width 14.1 % (11.6-14.8) Platelet Count 151 K/UL (150-450) Mean Platelet Volume 7.4 FL (6.5-10.1) Neutrophils (%) (Auto) 68.8 % (45.0-75.0) Lymphocytes (%) (Auto) 21.6 % (20.0-45.0) Monocytes (%) (Auto) 9.2 % (1.0-10.0) Eosinophils (%) (Auto) 0.0 % (0.0-3.0) Basophils (%) (Auto) 0.4 % (0.0-2.0) Prothrombin Time 10.9 SEC (9.30-11.50) Prothromb Time International Ratio 1.0 (0.9-1.1) Activated Partial Thromboplast Time 25 SEC (23-33) Osmolality 300 mOsm/kg (297-317) Uric Acid 4.4 MG/DL (2.6-7.2) C-Reactive Protein, Quantitative 0.9 mg/dL (0.00-0.90) Triglycerides Level 132 MG/DL (30-150) Cholesterol Level 164 MG/DL (< 200) LDL Cholesterol 88 mg/dL (<100) HDL Cholesterol 50 MG/DL (40-60) Cholesterol/HDL Ratio 3.3 (3.3-4.4) Thyroid Stimulating Hormone (TSH) 0.431 uiU/mL (0.358-3.740) Free Thyroxine 1.30 NG/DL (0.76-1.46) Free Triiodothyronine 1.4 pg/mL (2.3-4.2) L Cortisol Pending Test 03/30/20 12:00 POC Whole Blood Glucose Pending Current Medications Medications (Trade) Dose Ordered Sig/Ayah Route PRN Reason Start Time Stop Time Status Last Admin Dose Admin Acetaminophen (Tylenol) 650 mg Q4H PRN ORAL FEVER 03/29/20 18:00 04/28/20 17:59 Albuterol/ Ipratropium (Albuterol/ Ipratropium) 3 ml Q4H PRN HHN Shortness of Breath 03/29/20 18:00 04/03/20 17:59 Aztreonam 1 gm/ Sodium Chloride 50 ml @ 100 mls/hr EVERY 8 HOURS IVPB 03/29/20 22:00 04/05/20 21:59 03/30/20 06:00 Barium Sulfate (Varibar Honey) 250 ml NOW PRN MC RAD 03/30/20 13:30 04/02/20 13:17 Barium Sulfate (Varibar [place]) 240 ml NOW PRN MC RAD 03/30/20 13:30 04/02/20 13:17 Barium Sulfate (Varibar Pudding) 230 ml NOW PRN MC RAD 03/30/20 13:30 04/02/20 13:17 Barium Sulfate (Varibar Thin Liquid powder) 148 gm NOW PRN MC RAD 03/30/20 13:30 04/02/20 13:17 Carvedilol (Coreg) 3.125 mg EVERY 12 HOURS ORAL 03/29/20 22:00 04/28/20 21:59 03/30/20 09:30 Dextrose (Dextrose 50%) 25 ml Q30M PRN IV Hypoglycemia 03/29/20 21:30 06/27/20 21:29 Dextrose (Dextrose 50%) 50 ml Q30M PRN IV Hypoglycemia 03/29/20 21:30 06/27/20 21:29 Diltiazem HCl (Cardizem) 10 mg Q1H PRN IV heart rate more than 120, 03/29/20 18:00 04/28/20 17:59 Divalproex Sodium (Depakote) 750 mg Q12HR ORAL 03/29/20 21:00 04/28/20 20:59 03/30/20 09:31 Duloxetine HCl (Cymbalta) 30 mg DAILY ORAL 03/30/20 09:00 06/28/20 08:59 03/30/20 09:30 Enalaprilat (Vasotec) 2.5 mg Q6H PRN IV sbp more than 160 03/29/20 18:00 04/28/20 17:59 Finasteride (Proscar) 5 mg DAILY ORAL 03/30/20 09:00 06/28/20 08:59 03/30/20 09:30 Insulin Aspart (NovoLOG) BEFORE MEALS AND HS SUBQ 03/29/20 22:00 06/27/20 21:59 03/30/20 06:01 Iohexol (OMNIPAQUE-300 100ml) 100 ml NOW PRN INJ Radiology Procedure 03/29/20 11:45 03/31/20 11:44 Labetalol HCl (Normodyne) 20 mg Q1H PRN IV sbp more than 180 03/29/20 18:00 04/28/20 17:59 Levothyroxine Sodium (Synthroid) 100 mcg Q24H ORAL 03/30/20 06:30 04/29/20 06:29 03/30/20 06:01 Memantine (Namenda) 10 mg Q12HR ORAL 03/29/20 21:00 04/28/20 20:59 03/30/20 09:30 Nitroglycerin (Ntg) 0.4 mg Q5M PRN SL Prn Chest Pain 03/29/20 18:00 04/28/20 17:59 Ondansetron HCl (Zofran) 4 mg Q6H PRN IVP Nausea & Vomiting 03/29/20 18:00 04/28/20 17:59 Pantoprazole (Protonix) 40 mg DAILY ORAL 03/30/20 09:00 04/29/20 08:59 03/30/20 09:30 Polyethylene Glycol (Miralax) 17 gm DAILYPRN PRN ORAL Constipation 03/29/20 18:00 04/28/20 17:59 Sodium Chloride 1,000 ml @ 75 mls/hr [id number] IV 03/30/20 13:30 04/29/20 13:29 Tamsulosin HCl (Flomax) 0.4 mg DAILY ORAL 03/30/20 09:00 04/29/20 08:59 03/30/20 09:30 Temazepam (Restoril) 15 mg HSPRN PRN ORAL Insomnia 03/29/20 18:00 04/05/20 17:59 Timolol Maleate (timoloL maleate 0.5% Op Soln) 1 drop TWICE A DAY BOTH EYES 03/29/20 20:00 04/28/20 19:59 03/30/20 09:33 Gaetano Fung MD Mar 30, 2020 13:25
[2020-03-30] MEDS ORDERED: Varibar Honey 250ml MC PRN (13:30)
[2020-03-30] MEDS ORDERED: Varibar Thin Liquid powder 148gm MC PRN (13:30)
[2020-03-30] MEDS ORDERED: Varibar Nectar 240ml MC PRN (13:30)
[2020-03-30] MEDS ORDERED: Varibar Pudding 230ml MC PRN (13:30)
--- NOTE | 2020-03-30 14:14 | Internal Med Progress Note ---
Subjective Physician Name Jacob Tavera Attending Physician Jacob Tavera MD Current Medications Medications (Trade) Dose Ordered Sig/Ayah Route PRN Reason Start Time Stop Time Status Last Admin Dose Admin Acetaminophen (Tylenol) 650 mg Q4H PRN ORAL FEVER 03/29/20 18:00 04/28/20 17:59 Albuterol/ Ipratropium (Albuterol/ Ipratropium) 3 ml Q4H PRN HHN Shortness of Breath 03/29/20 18:00 04/03/20 17:59 Aztreonam 1 gm/ Sodium Chloride 50 ml @ 100 mls/hr EVERY 8 HOURS IVPB 03/29/20 22:00 04/05/20 21:59 03/30/20 13:53 Barium Sulfate (Varibar Honey) 250 ml NOW PRN MC RAD 03/30/20 13:30 04/02/20 13:17 Barium Sulfate (Varibar [place]) 240 ml NOW PRN MC RAD 03/30/20 13:30 04/02/20 13:17 Barium Sulfate (Varibar Pudding) 230 ml NOW PRN MC RAD 03/30/20 13:30 04/02/20 13:17 Barium Sulfate (Varibar Thin Liquid powder) 148 gm NOW PRN MC RAD 03/30/20 13:30 04/02/20 13:17 Carvedilol (Coreg) 3.125 mg EVERY 12 HOURS ORAL 03/29/20 22:00 04/28/20 21:59 03/30/20 09:30 Dextrose (Dextrose 50%) 25 ml Q30M PRN IV Hypoglycemia 03/29/20 21:30 06/27/20 21:29 Dextrose (Dextrose 50%) 50 ml Q30M PRN IV Hypoglycemia 03/29/20 21:30 06/27/20 21:29 Diltiazem HCl (Cardizem) 10 mg Q1H PRN IV heart rate more than 120, 03/29/20 18:00 04/28/20 17:59 Divalproex Sodium (Depakote) 750 mg Q12HR ORAL 03/29/20 21:00 04/28/20 20:59 03/30/20 09:31 Duloxetine HCl (Cymbalta) 30 mg DAILY ORAL 03/30/20 09:00 06/28/20 08:59 03/30/20 09:30 Enalaprilat (Vasotec) 2.5 mg Q6H PRN IV sbp more than 160 03/29/20 18:00 04/28/20 17:59 Finasteride (Proscar) 5 mg DAILY ORAL 03/30/20 09:00 06/28/20 08:59 03/30/20 09:30 Insulin Aspart (NovoLOG) BEFORE MEALS AND HS SUBQ 03/29/20 22:00 06/27/20 21:59 03/30/20 06:01 Iohexol (OMNIPAQUE-300 100ml) 100 ml NOW PRN INJ Radiology Procedure 03/29/20 11:45 03/31/20 11:44 Labetalol HCl (Normodyne) 20 mg Q1H PRN IV sbp more than 180 03/29/20 18:00 04/28/20 17:59 Levothyroxine Sodium (Synthroid) 100 mcg Q24H ORAL 03/30/20 06:30 04/29/20 06:29 03/30/20 06:01 Memantine (Namenda) 10 mg Q12HR ORAL 03/29/20 21:00 04/28/20 20:59 03/30/20 09:30 Nitroglycerin (Ntg) 0.4 mg Q5M PRN SL Prn Chest Pain 03/29/20 18:00 04/28/20 17:59 Ondansetron HCl (Zofran) 4 mg Q6H PRN IVP Nausea & Vomiting 03/29/20 18:00 04/28/20 17:59 Pantoprazole (Protonix) 40 mg DAILY ORAL 03/30/20 09:00 04/29/20 08:59 03/30/20 09:30 Polyethylene Glycol (Miralax) 17 gm DAILYPRN PRN ORAL Constipation 03/29/20 18:00 04/28/20 17:59 Sodium Chloride 1,000 ml @ 75 mls/hr [id number] IV 03/30/20 13:30 04/29/20 13:29 03/30/20 13:53 Tamsulosin HCl (Flomax) 0.4 mg DAILY ORAL 03/30/20 09:00 04/29/20 08:59 03/30/20 09:30 Temazepam (Restoril) 15 mg HSPRN PRN ORAL Insomnia 03/29/20 18:00 04/05/20 17:59 Timolol Maleate (timoloL maleate 0.5% Op Soln) 1 drop TWICE A DAY BOTH EYES 03/29/20 20:00 04/28/20 19:59 03/30/20 09:33 Allergies: Coded Allergies: ASPIRIN (Verified Allergy, Unknown, 03/29/20) ENOXAPARIN (Verified Allergy, Unknown, 03/29/20) HEPARIN (Verified Allergy, Unknown, 03/29/20) PEANUT (Verified Allergy, Unknown, 03/29/20) PENICILLINS (Verified Allergy, Unknown, 03/30/20) tolerated Ceftriaxone 03/29/20 Uncoded Allergies: SEAFOOD (Allergy, Unknown, 03/29/20) Subjective Awake, more responsive, no acute distress, denies any chest pain or shortness of breath, WBC: 16.4 Objective Last Vital Signs Date Time Temp Pulse Resp B/P (MAP) Pulse Ox O2 Delivery O2 Flow Rate FiO2 03/30/20 12:00 99.0 75 18 144/83 (103) 96 03/30/20 09:00 Room Air Laboratory Tests Test 03/29/20 21:45 03/30/20 01:40 03/30/20 05:50 03/30/20 12:00 POC Whole Blood Glucose Pending 162 MG/DL (74-106) H Pending Urine Color Yellow Urine Appearance Cloudy Urine pH 5 (4.5-8.0) Urine Specific [place] 1.015 (1.005-1.035) Urine Protein 3+ (NEGATIVE) H Urine Glucose (UA) Negative (NEGATIVE) Urine Ketones 1+ (NEGATIVE) H Urine Blood 5+ (NEGATIVE) H Urine Nitrite Negative (NEGATIVE) Urine Bilirubin 1+ (NEGATIVE) H Urine Ictotest Negative (NEGATIVE) Urine Urobilinogen 4 MG/DL (0.0-1.0) H Urine Leukocyte Esterase 3+ (NEGATIVE) H Urine RBC Tntc /HPF (0 - 0) H Urine WBC Tntc /HPF (0 - 0) H Urine Squamous Epithelial Cells None /LPF (NONE/OCC) Urine Bacteria Moderate /HPF (NONE) H Urine Osmolality 693 mOsm/kg (429-449) H Urine Random Sodium < 20 mmol/L (20-110) L White Blood Count 16.4 K/UL (4.8-10.8) H Red Blood Count 5.81 M/UL (4.70-6.10) Hemoglobin 17.6 G/DL (14.2-18.0) Hematocrit 53.1 % (42.0-52.0) H Mean Corpuscular Volume 91 FL (80-99) Mean Corpuscular Hemoglobin 30.3 PG (27.0-31.0) Mean Corpuscular Hemoglobin Concent 33.2 G/DL (32.0-36.0) Red Cell Distribution Width 14.1 % (11.6-14.8) Platelet Count 151 K/UL (150-450) Mean Platelet Volume 7.4 FL (6.5-10.1) Neutrophils (%) (Auto) 68.8 % (45.0-75.0) Lymphocytes (%) (Auto) 21.6 % (20.0-45.0) Monocytes (%) (Auto) 9.2 % (1.0-10.0) Eosinophils (%) (Auto) 0.0 % (0.0-3.0) Basophils (%) (Auto) 0.4 % (0.0-2.0) Prothrombin Time 10.9 SEC (9.30-11.50) Prothromb Time International Ratio 1.0 (0.9-1.1) Activated Partial Thromboplast Time 25 SEC (23-33) Osmolality 300 mOsm/kg (297-317) Uric Acid 4.4 MG/DL (2.6-7.2) C-Reactive Protein, Quantitative 0.9 mg/dL (0.00-0.90) Triglycerides Level 132 MG/DL (30-150) Cholesterol Level 164 MG/DL (< 200) LDL Cholesterol 88 mg/dL (<100) HDL Cholesterol 50 MG/DL (40-60) Cholesterol/HDL Ratio 3.3 (3.3-4.4) Thyroid Stimulating Hormone (TSH) 0.431 uiU/mL (0.358-3.740) Free Thyroxine 1.30 NG/DL (0.76-1.46) Free Triiodothyronine 1.4 pg/mL (2.3-4.2) L Cortisol Pending Microbiology Date/Time Source Procedure Growth Status 03/29/20 17:44 Rectum Received 03/29/20 13:30 Urine,Clean Catch Urine Culture - Preliminary NO GROWTH AFTER 24 HOURS Resulted 03/29/20 11:50 Nasopharynx SARS-CoV-2 RdRp Gene Assay - Final Complete Intake and Output 03/29/20 03/30/20 19:00 07:00 Intake Total 1000 ml Output Total 250 ml Balance 1000 ml -250 ml IV Total 1000 ml Output Urine Total 250 ml Objective GENERAL: wake, more responsive, talking more. HEAD AND NECK: Pupils are equal and reactive to light. Anicteric. NECK: Supple. No JVD. LUNGS: Good air entry. No wheezing or rhonchi. Decreased air in bases. HEART: S1, S2. Distant heart sounds. No murmurs or gallops. ABDOMEN: Soft, nondistended, nontender. Morbidly obese. Bowel sounds present. EXTREMITIES: No cyanosis, clubbing, or edema. NEUROLOGIC: Examination is very limited secondary to the patient's status. moving upper extremities, lower extremities weaker than upper extremities. RECTAL: Refused and deferred. GENITOURINARY: Refused and deferred. PSYCHIATRIC: Mood and affect is unable to obtain. Assessment/Plan Assessment/Plan ASSESSMENT: 1. Sepsis secondary to urinary tract infection. 2. History of CVA. 3. Prior history of heart failure. 4. Major depression disorder. 5. Diabetic type 2. 6. BPH. 7. Bipolar disorder. 8. COPD. 9. Hyponatremia. 10. Dehydration. 11. The patient has a history of hypothyroidism. PLAN: In monitor unit. monitor laboratory as well as culture. Abx: Azactam. F/U blood glucose level monitoring, Accu-Cheks. Dr. Frazier from Pulmonary Critical Care Dr. Kirk from Nephrology. DVT prophylaxis: Heparin subcu CODE STATUS: DNRJacob Manzano MD Mar 30, 2020 14:14
--- NOTE | 2020-03-30 14:49 | NUR ---
NURSE NOTES:SKIN ASSESSMENT PATIENT AWAKE YET UNABLE TO ASSIST WITH REPOSITIONING. SKIN INTACT. RECOMMEND-CONTINUED WOUND PREVENTION PROTOCOLS ASSIST WITH REPOSITIONING ELEVATE HEELS WITH PILLOWS ABOVE DISCUSSED WITH NURSE CARING FOR PATIENT.
--- NOTE | 2020-03-30 15:50 | Consultation ---
History of Present Illness General Date patient seen: Mar 30, 2020 Chief Complaint: Generalized Weakness Present Illness HPI 74 y/o M with hx of CVA, HTN, dysphagia, R ankle OA, COPD, BPH, L5 vertebral body fracture, sacrum fracture, seizure disorder, CHF, bipolar disorder, hypoth yroidism, Dm2, Dementia, contractures, [place] resident([facility]) presented to ED on 03/29/20 with 4 days of dysuria, generalized weakness, suprapubic pain and fever. Upon admission was hypertensive to 190 systolic and had leukocytosis. No diarrhea, cough, chest congestion. Allergies: Coded Allergies: ASPIRIN (Verified Allergy, Unknown, 03/29/20) ENOXAPARIN (Verified Allergy, Unknown, 03/29/20) HEPARIN (Verified Allergy, Unknown, 03/29/20) PEANUT (Verified Allergy, Unknown, 03/29/20) PENICILLINS (Verified Allergy, Unknown, 03/30/20) tolerated Ceftriaxone 03/29/20 Uncoded Allergies: SEAFOOD (Allergy, Unknown, 03/29/20) Medication History Scheduled Carbamide Peroxide (Debrox), 5 DROP BOTH EARS TWICE A DAY, (Reported) Divalproex Sodium* (Depakote*), 750 MG PO Q12HR, (Reported) Duloxetine Hcl* (Cymbalta*), 30 MG ORAL DAILY, (Reported) Famotidine* (Pepcid 20mg tablet*), 20 MG ORAL DAILY, (Reported) Finasteride* (Proscar*), 5 MG ORAL DAILY, (Reported) Levothyroxine Sodium* (Synthroid*), 100 MCG ORAL DAILY, (Reported) Loratadine (Claritin*), 10 MG PO DAILY, (Reported) Memantine Hcl* (Namenda*), 10 MG ORAL TWICE A DAY, (Reported) Metformin Hcl* (Glucophage*), 1,000 MG ORAL DAILY, (Reported) Tamsulosin HCl (Flomax), 0.4 MG ORAL DAILY, (Reported) Timolol Maleate (Timolol Maleate), 1 DROP BOTH EYES TWICE A DAY, (Reported) Scheduled PRN Melatonin (Melatonin), 5 MG ORAL BEDTIME PRN for Insomnia, (Reported) Tramadol Hcl* (Ultram*), 50 MG ORAL Q4HR PRN for For Pain, (Reported) Miscellaneous Medications Hydroxyzine Hcl (Hydroxyzine Hcl), 5 MG PO, (Reported) Patient History Healthcare decision maker Resuscitation status Advanced Directive on File Patient History Narrative Pmhx: as above Shx: [facility] resident. No smoking, alcohol, or drugs. Fhx: non contributory Review of Systems All Other Systems: negative except mentioned in HPI Physical Exam Physical Exam Narrative HEAD AND NECK: Pupils are equal and reactive to light. Anicteric. NECK: Supple. No JVD. LUNGS: Good air entry. No wheezing or rhonchi. Decreased air in bases. HEART: S1, S2. Distant heart sounds. No murmurs or gallops. ABDOMEN: Soft, nondistended, nontender. Morbidly obese. Bowel sounds present. EXTREMITIES: No cyanosis, clubbing, or edema. Last 24 Hour Vital Signs Date Time Temp Pulse Resp B/P (MAP) Pulse Ox O2 Delivery O2 Flow Rate FiO2 03/30/20 12:00 99.0 75 18 144/83 (103) 96 03/30/20 12:00 76 03/30/20 09:30 83 129/87 03/30/20 09:00 Room Air 03/30/20 08:00 86 03/30/20 08:00 99.5 83 20 129/87 (101) 95 03/30/20 04:00 86 03/30/20 04:00 99.3 86 19 154/90 (111) 97 03/30/20 00:00 98.8 97 20 159/92 (114) 97 03/30/20 00:00 100 03/29/20 21:53 93 161/94 03/29/20 20:00 100 03/29/20 20:00 99.3 105 20 166/104 (124) 99 03/29/20 19:13 Room Air 03/29/20 18:45 98.1 20 178/103 87 Room Air 03/29/20 17:17 98.1 20 178/103 87 Room Air 03/29/20 15:41 177/124 Intake and Output 03/29/20 03/30/20 19:00 07:00 Intake Total 1000 ml Output Total 250 ml Balance 1000 ml -250 ml IV Total 1000 ml Output Urine Total 250 ml Laboratory Tests Test 03/29/20 21:45 03/30/20 01:40 03/30/20 05:50 03/30/20 12:00 POC Whole Blood Glucose Pending 162 MG/DL (74-106) H Pending Urine Color Yellow Urine Appearance Cloudy Urine pH 5 (4.5-8.0) Urine Specific [place] 1.015 (1.005-1.035) Urine Protein 3+ (NEGATIVE) H Urine Glucose (UA) Negative (NEGATIVE) Urine Ketones 1+ (NEGATIVE) H Urine Blood 5+ (NEGATIVE) H Urine Nitrite Negative (NEGATIVE) Urine Bilirubin 1+ (NEGATIVE) H Urine Ictotest Negative (NEGATIVE) Urine Urobilinogen 4 MG/DL (0.0-1.0) H Urine Leukocyte Esterase 3+ (NEGATIVE) H Urine RBC Tntc /HPF (0 - 0) H Urine WBC Tntc /HPF (0 - 0) H Urine Squamous Epithelial Cells None /LPF (NONE/OCC) Urine Bacteria Moderate /HPF (NONE) H Urine Osmolality 693 mOsm/kg (429-449) H Urine Random Sodium < 20 mmol/L (20-110) L White Blood Count 16.4 K/UL (4.8-10.8) H Red Blood Count 5.81 M/UL (4.70-6.10) Hemoglobin 17.6 G/DL (14.2-18.0) Hematocrit 53.1 % (42.0-52.0) H Mean Corpuscular Volume 91 FL (80-99) Mean Corpuscular Hemoglobin 30.3 PG (27.0-31.0) Mean Corpuscular Hemoglobin Concent 33.2 G/DL (32.0-36.0) Red Cell Distribution Width 14.1 % (11.6-14.8) Platelet Count 151 K/UL (150-450) Mean Platelet Volume 7.4 FL (6.5-10.1) Neutrophils (%) (Auto) 68.8 % (45.0-75.0) Lymphocytes (%) (Auto) 21.6 % (20.0-45.0) Monocytes (%) (Auto) 9.2 % (1.0-10.0) Eosinophils (%) (Auto) 0.0 % (0.0-3.0) Basophils (%) (Auto) 0.4 % (0.0-2.0) Prothrombin Time 10.9 SEC (9.30-11.50) Prothromb Time International Ratio 1.0 (0.9-1.1) Activated Partial Thromboplast Time 25 SEC (23-33) Osmolality 300 mOsm/kg (297-317) Uric Acid 4.4 MG/DL (2.6-7.2) C-Reactive Protein, Quantitative 0.9 mg/dL (0.00-0.90) Triglycerides Level 132 MG/DL (30-150) Cholesterol Level 164 MG/DL (< 200) LDL Cholesterol 88 mg/dL (<100) HDL Cholesterol 50 MG/DL (40-60) Cholesterol/HDL Ratio 3.3 (3.3-4.4) Thyroid Stimulating Hormone (TSH) 0.431 uiU/mL (0.358-3.740) Free Thyroxine 1.30 NG/DL (0.76-1.46) Free Triiodothyronine 1.4 pg/mL (2.3-4.2) L Cortisol 22.3 UG/DL Microbiology Date/Time Source Procedure Growth Status 03/29/20 17:44 Rectum Received Height (Feet): 6 Height (Inches): 0.00 Weight (Pounds): 233 Medications Current Medications Medications (Trade) Dose Ordered Sig/Ayah Route PRN Reason Start Time Stop Time Status Last Admin Dose Admin Acetaminophen (Tylenol) 650 mg Q4H PRN ORAL FEVER 03/29/20 18:00 04/28/20 17:59 Albuterol/ Ipratropium (Albuterol/ Ipratropium) 3 ml Q4H PRN HHN Shortness of Breath 03/29/20 18:00 04/03/20 17:59 Aztreonam 1 gm/ Sodium Chloride 50 ml @ 100 mls/hr EVERY 8 HOURS IVPB 03/29/20 22:00 04/05/20 21:59 03/30/20 13:53 Barium Sulfate (Varibar Honey) 250 ml NOW PRN MC RAD 03/30/20 13:30 04/02/20 13:17 Barium Sulfate (Varibar [place]) 240 ml NOW PRN MC RAD 03/30/20 13:30 04/02/20 13:17 Barium Sulfate (Varibar Pudding) 230 ml NOW PRN MC RAD 03/30/20 13:30 04/02/20 13:17 Barium Sulfate (Varibar Thin Liquid powder) 148 gm NOW PRN MC RAD 03/30/20 13:30 04/02/20 13:17 Carvedilol (Coreg) 3.125 mg EVERY 12 HOURS ORAL 03/29/20 22:00 04/28/20 21:59 03/30/20 09:30 Dextrose (Dextrose 50%) 25 ml Q30M PRN IV Hypoglycemia 03/29/20 21:30 06/27/20 21:29 Dextrose (Dextrose 50%) 50 ml Q30M PRN IV Hypoglycemia 03/29/20 21:30 06/27/20 21:29 Diltiazem HCl (Cardizem) 10 mg Q1H PRN IV heart rate more than 120, 03/29/20 18:00 04/28/20 17:59 Divalproex Sodium (Depakote) 750 mg Q12HR ORAL 03/29/20 21:00 04/28/20 20:59 03/30/20 09:31 Duloxetine HCl (Cymbalta) 30 mg DAILY ORAL 03/30/20 09:00 06/28/20 08:59 03/30/20 09:30 Enalaprilat (Vasotec) 2.5 mg Q6H PRN IV sbp more than 160 03/29/20 18:00 04/28/20 17:59 Finasteride (Proscar) 5 mg DAILY ORAL 03/30/20 09:00 06/28/20 08:59 03/30/20 09:30 Insulin Aspart (NovoLOG) BEFORE MEALS AND HS SUBQ 03/29/20 22:00 06/27/20 21:59 03/30/20 06:01 Iohexol (OMNIPAQUE-300 100ml) 100 ml NOW PRN INJ Radiology Procedure 03/29/20 11:45 03/31/20 11:44 Labetalol HCl (Normodyne) 20 mg Q1H PRN IV sbp more than 180 03/29/20 18:00 04/28/20 17:59 Levothyroxine Sodium (Synthroid) 100 mcg Q24H ORAL 03/30/20 06:30 04/29/20 06:29 03/30/20 06:01 Memantine (Namenda) 10 mg Q12HR ORAL 03/29/20 21:00 04/28/20 20:59 03/30/20 09:30 Nitroglycerin (Ntg) 0.4 mg Q5M PRN SL Prn Chest Pain 03/29/20 18:00 04/28/20 17:59 Ondansetron HCl (Zofran) 4 mg Q6H PRN IVP Nausea & Vomiting 03/29/20 18:00 04/28/20 17:59 Pantoprazole (Protonix) 40 mg DAILY ORAL 03/30/20 09:00 04/29/20 08:59 03/30/20 09:30 Polyethylene Glycol (Miralax) 17 gm DAILYPRN PRN ORAL Constipation 03/29/20 18:00 04/28/20 17:59 Sodium Chloride 1,000 ml @ 75 mls/hr [id number] IV 03/30/20 13:30 04/29/20 13:29 03/30/20 13:53 Tamsulosin HCl (Flomax) 0.4 mg DAILY ORAL 03/30/20 09:00 04/29/20 08:59 03/30/20 09:30 Temazepam (Restoril) 15 mg HSPRN PRN ORAL Insomnia 03/29/20 18:00 04/05/20 17:59 Timolol Maleate (timoloL maleate 0.5% Op Soln) 1 drop TWICE A DAY BOTH EYES 03/29/20 20:00 04/28/20 19:59 03/30/20 09:33 Assessment/Plan Assessment/Plan: Abx: Ceftriaxone x 1 03/29 Aztreonam 03/29- Assessment: COVID19 neg x1 (03/29 rapid COVID PCR Neg) -CXR: no acute disease UTI -u/a wbc tnct, nit neg, leuk +3; ucx NTD Afebrile Leukocytosis, increased Abd pain -CT abd/p: Limited assessment of the GI tract, due to lack of enteric contrast administration. Equivocal mild urinary bladder wall thickening, could in part be an artifact of under distention but cystitis possible. Correlate with clinical findings. Evidence of prior cholecystectomy. Borderline cardiomegaly with suggestion of mild pulmonary venous congestion. Incidental findings as noted, including bilateral gynecomastia, degenerative spondylosis Accelerated hypertension -CT head: Chronic and age-related changes. Negative for acute intracranial bleed or mass effect CVA HTN dysphagia R ankle OA COPD BPH hx of L5 vertebral body fracture hx of sacrum fracture seizure disorder CHF bipolar disorder hypothyroidism Dm2 Dementia contractures [place] resident([facility]) Plan: -Continue empiric Aztreonam #2 pending ucx -f/u cx -Monitor CBC/CMP, temperatures Thank you for this consultation. Will continue to follow along with you. Discussed with MONSTER. Riana Wong M.D. Mar 30, 2020 15:50
[2020-03-30 16:00] VITALS: BP 150/84
[2020-03-30] MEDS ORDERED: Tubing IV Secondary IV ONE (16:01)
[2020-03-30] MEDS ORDERED: NS 275ml ONE (16:01)
--- NOTE | 2020-03-30 19:30 | NUR ---
NURSE NOTES: Received pt and report from MONSTER Wong. Observed pt resting in bed with both eyes closed; arousable to voice. Pt is A/Ox2-3. secured entrance monitor is in placed; pt is NSR. IV site intact, asymptomatic and patent; running NS @75cc/hr. Pt is currently NPO; awaiting swallow evaluation. Bed is in the lowest position and locked. Call light and bedside table is within reach. No signs/symptoms of acute distress noted. Will continue plan of care.
[2020-03-30 20:00] VITALS: BP 156/89
--- NOTE | 2020-03-30 20:15 | Consultation ---
DATE OF CONSULTATION: 03/30/2020 INFECTIOUS DISEASE CONSULTATION CONSULTING PHYSICIAN: Gaetano Fung M.D. PRIMARY ATTENDING PHYSICIAN: Jacob Tavera M.D. REASON FOR CONSULT: UTI. HISTORY OF PRESENT ILLNESS: This is a 74-year-old white male admitted yesterday from nursing facility, complaining of generalized weakness, has some spiking fevers, suprapubic fullness, has some pyuria. PAST MEDICAL HISTORY: History of CVA, dementia, hypertension, COPD, BPH, hypothyroidism, diabetes mellitus type 2, depression, epilepsy, heart failure, fracture of fifth lumbar vertebral body, sacral fracture. PAST SURGICAL HISTORY: Cholecystectomy. ALLERGIES: Aspirin, penicillins, enoxaparin, heparin, peanut, and seafood. MEDICATIONS: Getting sodium chloride, Protonix, Flomax, finasteride, levothyroxine, insulin, aztreonam, memantine, Depakote, labetalol, , Vasotec, Restoril, Zofran, polyethylene glycol, nitroglycerin, albuterol . SOCIAL HISTORY: Significant for [place] [facility] residence, single. Currently, no other history obtainable. PHYSICAL EXAMINATION: VITAL SIGNS: Temperature is 99, pulse 75, blood pressure 144/83, maximum temperature 99.5. GENERAL APPEARANCE: Seems to be overweight, obese. HEAD AND NECK: [place] conjunctivae. HEART: Normal rate. LUNGS: Clear. ABDOMEN: Obese, soft. EXTREMITIES: No edema. Has foot drop on the left side. LABORATORY AND DIAGNOSTIC DATA: COVID test negative. Urine culture so far negative. UA showed wbc's too numerous to count. Protein 3+. Sodium 130, potassium 4.2, chloride 95, bicarbonate 27, BUN 14, creatinine 1, glucose is 177, albumin is 3.3. CT scan of the head showed chronic age-related changes. CT scan of the abdomen and pelvis showed cystitis and evidence of previous cystectomy. IMPRESSION: 1. UTI. 2. Cystitis. 3. Diabetes mellitus type 2. 4. Hyponatremia. 5. COPD. 6. BPH. 7. Penicillin allergy. 8. History of CVA. RECOMMENDATION: I agree with aztreonam. We will follow up culture. At the end of my exam, I thank Dr. Tavera for involving me in the care of this patient. Gaetano Fung M.D. DR: MATEO JOB#: [id number] CC:
[2020-03-30] MEDS: Carvedilol 6.25mg Tab ORAL SCH (21:30)
--- NOTE | 2020-03-30 21:37 | NUR ---
NURSE NOTES: Non-admin PO medications. Pt is unable to swallow and is currently NPO; awaiting swallow evaluation tomorrow.
--- NOTE | 2020-03-30 22:23 | NUR ---
NURSE NOTES: Notified Dr. Frazier that pt's Magnesium level is 1.7. Dr. Frazier ordered Mg Sulfate 2gm IVPB once. Addendum: 03/31/20 at 0001 by Meredith Pro Mai, RN Noted and carried out.
[2020-03-31] VITALS: BP 151/90
[2020-03-31] MEDS ORDERED: Morphine Sulfate 2mg/ml Inj(IV/IM USE ONLY) IVP PRN
--- NOTE | 2020-03-31 01:18 | NUR ---
NURSE NOTES: Observed pt asleep in bed. No signs/symptoms of acute distress noted. Will continue plan of care.
[2020-03-31 04:00] VITALS: BP 149/93
[2020-03-31] MEDS: Aztreonam Inj 1 GM in NS 50 ML IVPB SCH ×3 (05:38→21:52)
[2020-03-31] MEDS: NovoLOG Insulin Flexpen SUBQ SCH ×4 (06:16→21:00)
[2020-03-31 07:11] LABS: BASOPHILS % (AUTO) 0.7 % (0.0-2.0); EOSINOPHILS % (AUTO) 0.1 % (0.0-3.0); HEMATOCRIT 45.3 % (42.0-52.0); HEMOGLOBIN 15.5 G/DL (14.2-18.0); LYMPHOCYTES % (AUTO) 30.4 % (20.0-45.0); MEAN CORPUSCULAR VOLUME 89 FL (80-99); NEUTROPHILS % (AUTO) 58.8 % (45.0-75.0); PLATELET COUNT 121 K/UL (150-450); RED BLOOD COUNT 5.11 M/UL (4.70-6.10); RED CELL DISTRIBUTION WIDTH 13.1 % (11.6-14.8); WHITE BLOOD COUNT 10.1 K/UL (4.8-10.8)
--- NOTE | 2020-03-31 07:21 | NUR ---
NURSE NOTES: Report received from Yuki HOOK. Patient seen on rounds, awake and up in bed, not in distress, SR on tele monitor. Pt reports pain and burning sensation in penis, noted swelling in scrotal area, will offer pain medication. Pt is NPO pending swallow evaluation, education reinforced. PIV on right AC patent and infusing NS @ 75ml/hr. Bed low and locked, siderails up x2 and padded, zone alarms on 1, call light placed within reach and instructed to call nurse for assistance. Will continue with plan of care.
[2020-03-31 07:24] LABS: ALANINE AMINOTRANSFERASE 9 U/L (12-78); ALBUMIN 2.6 G/DL (3.4-5.0); ALBUMIN/GLOBULIN RATIO 0.7 (1.0-2.7); ALKALINE PHOSPHATASE 54 U/L (46-116); ANION GAP 5 mmol/L (5-15); ASPARTATE AMINO TRANSFERASE 13 U/L (15-37); BILIRUBIN,TOTAL 0.8 MG/DL (0.2-1.0); BLOOD UREA NITROGEN 28 mg/dL (7-18); CALCIUM 8.5 MG/DL (8.5-10.1); CARBON DIOXIDE 29 MMOL/L (21-32); CHLORIDE 102 MMOL/L (98-107); CREATININE 1.1 MG/DL (0.55-1.30); FERRITIN 178 NG/ML (8-388); GAMMA GLUTAMYL TRANSPEPTIDASE 19 U/L (5-85); PHOSPHORUS 3.3 MG/DL (2.5-4.9); POTASSIUM 3.9 MMOL/L (3.5-5.1); SODIUM 136 MMOL/L (136-145)
[2020-03-31 07:37] LABS: % IRON SATURATION 63 % (15-50); IRON 133 ug/dL (50-175); TOTAL IRON BINDING CAPACITY 210 ug/dL (250-450)
--- NOTE | 2020-03-31 07:45 | NUR ---
NURSE HAND-OFF REPORT: Important Events on Shift: Pt complained of burning sensation in penile area. Explained to pt that MD diagnosed pt with UTI and that could be the reason for burning sensation. Also asked pt if scrotum has always been swollen and pt answered yet. Endorsed to dayshift nurse. Patient Status: Stable Diet: NPO Pending Orders: Swallow Eval Pending Results/Labs: AM Labs Pending MD notification: N Latest Vital Signs: Temperature 96.6 , Pulse 75 , B/P 149 /93 , Respiratory Rate 19 , O2 SAT 96 , Room Air, O2 Flow Rate . EKG Rhythm: Sinus Rhythm Rhythm change?: N Latest [place] Fall Score: 50 Fall Risk: High Risk Safety Measures: Call light Within Reach, Bed Alarm Zone 1, Side Rails Side Rails x2, Bed position Low and Locked. Fall Precautions: Yellow Socks Yellow Gown Door Sign Patient Fall Education Report given to MONSTER Anna.
[2020-03-31 08:00] VITALS: BP 149/88
[2020-03-31] MEDS: Tamsulosin 0.4mg cap ORAL SCH (08:58)
[2020-03-31] MEDS: Memantine 10mg tab ORAL SCH ×2 (08:59→20:35)
[2020-03-31] MEDS: DULoxetine 30mg cap ORAL SCH (08:59)
[2020-03-31] MEDS: Carvedilol 6.25mg Tab ORAL SCH ×2 (08:59→20:35)
[2020-03-31] MEDS: timoloL maleate 0.5% Op Soln 2.5ml BOTH EYES SCH ×2 (09:00→17:15)
--- NOTE | 2020-03-31 11:25 | Nephrology Progress Note ---
Assessment/Plan Problem List: (1) Electrolyte imbalance (2) Dehydration (3) Hypothyroidism (4) Uncontrolled hypertension Assessment Severe dehydration Hyponatremia Sepsis, UTI BPH Depression, bipolar disease Hypothyroidism Plan Hydrate Monitor electrolyte renal parameters Adjust BP meds as needed Per orders Subjective ROS Limited/Unobtainable: No Constitutional: Reports: malaise Objective Objective Last 24 Hour Vital Signs Date Time Temp Pulse Resp B/P (MAP) Pulse Ox O2 Delivery O2 Flow Rate FiO2 03/31/20 09:00 Room Air 03/31/20 08:59 74 149/88 03/31/20 08:00 74 03/31/20 08:00 97.7 72 18 149/88 (108) 96 03/31/20 04:00 68 03/31/20 04:00 96.6 75 19 149/93 (111) 96 03/31/20 00:00 74 03/31/20 00:00 97.7 82 19 151/90 (110) 98 03/30/20 21:00 Room Air 03/30/20 20:00 97.7 83 20 156/89 (111) 97 03/30/20 20:00 72 03/30/20 16:00 69 03/30/20 16:00 97.9 72 20 150/84 (106) 97 03/30/20 12:00 99.0 75 18 144/83 (103) 96 03/30/20 12:00 76 Intake and Output 03/30/20 03/31/20 19:00 07:00 Intake Total 120 ml Output Total 250 ml 700 ml Balance -130 ml -700 ml Intake Oral 120 ml Output Urine Total 250 ml 700 ml Current Medications Medications (Trade) Dose Ordered Sig/Ayah Route PRN Reason Start Time Stop Time Status Last Admin Dose Admin Acetaminophen (Tylenol) 650 mg Q4H PRN ORAL FEVER 03/29/20 18:00 04/28/20 17:59 Albuterol/ Ipratropium (Albuterol/ Ipratropium) 3 ml Q4H PRN HHN Shortness of Breath 03/29/20 18:00 04/03/20 17:59 Aztreonam 1 gm/ Sodium Chloride 50 ml @ 100 mls/hr EVERY 8 HOURS IVPB 03/29/20 22:00 04/05/20 21:59 03/31/20 05:38 Barium Sulfate (Varibar Honey) 250 ml NOW PRN MC RAD 03/30/20 13:30 04/02/20 13:17 Barium Sulfate (Varibar [place]) 240 ml NOW PRN RAD 03/30/20 13:30 04/02/20 13:17 Barium Sulfate (Varibar Pudding) 230 ml NOW PRN RAD 03/30/20 13:30 04/02/20 13:17 Barium Sulfate (Varibar Thin Liquid powder) 148 gm NOW PRN RAD 03/30/20 13:30 04/02/20 13:17 Carvedilol (Coreg) 6.25 mg EVERY 12 HOURS ORAL 03/30/20 21:30 04/28/20 21:59 03/31/20 08:59 Dextrose (Dextrose 50%) 25 ml Q30M PRN IV Hypoglycemia 03/29/20 21:30 06/27/20 21:29 Dextrose (Dextrose 50%) 50 ml Q30M PRN IV Hypoglycemia 03/29/20 21:30 06/27/20 21:29 Diltiazem HCl (Cardizem) 10 mg Q1H PRN IV heart rate more than 120, 03/29/20 18:00 04/28/20 17:59 Divalproex Sodium (Depakote) 750 mg Q12HR ORAL 03/29/20 21:00 04/28/20 20:59 03/31/20 09:00 Duloxetine HCl (Cymbalta) 30 mg DAILY ORAL 03/30/20 09:00 06/28/20 08:59 03/31/20 08:59 Enalaprilat (Vasotec) 2.5 mg Q6H PRN IV sbp more than 160 03/29/20 18:00 04/28/20 17:59 Finasteride (Proscar) 5 mg DAILY ORAL 03/30/20 09:00 06/28/20 08:59 03/31/20 08:59 Insulin Aspart (NovoLOG) BEFORE MEALS AND HS SUBQ 03/29/20 22:00 06/27/20 21:59 03/30/20 06:01 Iohexol (OMNIPAQUE-300 100ml) 100 ml NOW PRN INJ Radiology Procedure 03/29/20 11:45 03/31/20 11:44 Labetalol HCl (Normodyne) 20 mg Q1H PRN IV sbp more than 180 03/29/20 18:00 04/28/20 17:59 Levothyroxine Sodium (Synthroid) 100 mcg Q24H ORAL 03/30/20 06:30 04/29/20 06:29 03/30/20 06:01 Memantine (Namenda) 10 mg Q12HR ORAL 03/29/20 21:00 04/28/20 20:59 03/31/20 08:59 Morphine Sulfate (Morphine Sulfate) 1 mg Q6H PRN IVP For Pain 03/31/20 00:00 04/07/20 00:00 03/31/20 05:09 Nitroglycerin (Ntg) 0.4 mg Q5M PRN SL Prn Chest Pain 03/29/20 18:00 04/28/20 17:59 Ondansetron HCl (Zofran) 4 mg Q6H PRN IVP Nausea & Vomiting 03/29/20 18:00 04/28/20 17:59 Pantoprazole (Protonix) 40 mg DAILY ORAL 03/30/20 09:00 04/29/20 08:59 03/31/20 08:58 Polyethylene Glycol (Miralax) 17 gm DAILYPRN PRN ORAL Constipation 03/29/20 18:00 04/28/20 17:59 Sodium Chloride 1,000 ml @ 75 mls/hr [id number] IV 03/30/20 13:30 04/29/20 13:29 03/31/20 02:42 Tamsulosin HCl (Flomax) 0.4 mg DAILY ORAL 03/30/20 09:00 04/29/20 08:59 03/31/20 08:58 Temazepam (Restoril) 15 mg HSPRN PRN ORAL Insomnia 03/29/20 18:00 04/05/20 17:59 Timolol Maleate (timoloL maleate 0.5% Op Soln) 1 drop TWICE A DAY BOTH EYES 03/29/20 20:00 04/28/20 19:59 03/31/20 09:00 Laboratory Tests 03/30/20 12:00: POC Whole Blood Glucose [Pending] 03/30/20 18:01: POC Whole Blood Glucose 117H 03/30/20 21:16: POC Whole Blood Glucose 118H 03/31/20 05:40: White Blood Count 10.1, Red Blood Count 5.11, Hemoglobin 15.5, Hematocrit 45.3, Mean Corpuscular Volume 89, Mean Corpuscular Hemoglobin 30.3, Mean Corpuscular Hemoglobin Concent 34.2, Red Cell Distribution Width 13.1, Platelet Count 121L, Mean Platelet Volume 6.6, Neutrophils (%) (Auto) 58.8, Lymphocytes (%) (Auto) 30.4, Monocytes (%) (Auto) 10.0, Eosinophils (%) (Auto) 0.1, Basophils (%) (Auto) 0.7, Sodium Level 136, Potassium Level 3.9, Chloride Level 102, Carbon Dioxide Level 29, Anion Gap 5, Blood Urea Nitrogen 28H, Creatinine 1.1, Estimat Glomerular Filtration Rate > 60, Glucose Level 98, Uric Acid 5.0, Calcium Level 8.5, Phosphorus Level 3.3, Magnesium Level 2.5H, Iron Level 133, Total Iron Binding Capacity 210L, Percent Iron Saturation 63H, Unsaturated Iron Binding 77L , Ferritin 178, Total Bilirubin 0.8, Gamma Glutamyl Transpeptidase 19, Aspartate Amino Transf (AST/SGOT) 13L, Alanine Aminotransferase (ALT/SGPT) 9L, Alkaline Phosphatase 54, C-Reactive Protein, Quantitative 1.2H, Pro-B-Type Natriuretic Peptide 832H, Total Protein 6.3L, Albumin 2.6L, Globulin 3.7, Albumin/Globulin Ratio 0.7L, Vitamin B12 Level 376, Folate 8.7, Valproic Acid (Depakene) Level 25L 03/31/20 06:10: POC Whole Blood Glucose [Pending] Height (Feet): 6 Height (Inches): 0.00 Weight (Pounds): 233 General Appearance: no apparent distress, lethargic Cardiovascular: normal rate Respiratory/Chest: decreased breath sounds Abdomen: soft Montana Kirk MD Mar 31, 2020 11:25
[2020-03-31 12:00] VITALS: BP 134/80
--- NOTE | 2020-03-31 12:22 | Pulmonology Progress Note ---
Subjective ROS Limited/Unobtainable: No Constitutional: Reports: no symptoms HEENT: Repors: no symptoms Allergies: Coded Allergies: ASPIRIN (Verified Allergy, Unknown, 03/29/20) ENOXAPARIN (Verified Allergy, Unknown, 03/29/20) HEPARIN (Verified Allergy, Unknown, 03/29/20) PEANUT (Verified Allergy, Unknown, 03/29/20) PENICILLINS (Verified Allergy, Unknown, 03/30/20) tolerated Ceftriaxone 03/29/20 Uncoded Allergies: SEAFOOD (Allergy, Unknown, 03/29/20) Objective Last 24 Hour Vital Signs Date Time Temp Pulse Resp B/P (MAP) Pulse Ox O2 Delivery O2 Flow Rate FiO2 03/31/20 09:00 Room Air 03/31/20 08:59 74 149/88 03/31/20 08:00 74 03/31/20 08:00 97.7 72 18 149/88 (108) 96 03/31/20 04:00 68 03/31/20 04:00 96.6 75 19 149/93 (111) 96 03/31/20 00:00 74 03/31/20 00:00 97.7 82 19 151/90 (110) 98 03/30/20 21:00 Room Air 03/30/20 20:00 97.7 83 20 156/89 (111) 97 03/30/20 20:00 72 03/30/20 16:00 69 03/30/20 16:00 97.9 72 20 150/84 (106) 97 Intake and Output 03/30/20 03/31/20 19:00 07:00 Intake Total 120 ml Output Total 250 ml 700 ml Balance -130 ml -700 ml Intake Oral 120 ml Output Urine Total 250 ml 700 ml General Appearance: WD/WN HEENT: normocephalic, atraumatic Respiratory: chest wall non-tender, normal breath sounds Cardiovascular: normal peripheral pulses, normal rate Abdomen: normal bowel sounds, soft, non tender Genitourinary: normal external genitalia Microbiology Date/Time Source Procedure Growth Status 03/30/20 01:40 Indwelling Cath Urine Culture - Preliminary NO GROWTH Resulted 03/29/20 17:44 Rectum VRE Culture - Final NO VANCOMYCIN RESISTANT ENTEROCOCCUS ... Complete 03/29/20 17:44 Nasal Nares MRSA Culture - Final Staphylococcus Aureus - Mrsa Complete 03/29/20 13:30 Urine,Clean Catch Urine Culture - Final Gram Negative Sam Complete 03/29/20 11:50 Nasopharynx SARS-CoV-2 RdRp Gene Assay - Final Complete 03/29/20 11:50 Blood Blood Culture - Preliminary NO GROWTH AFTER 24 HOURS Resulted 03/29/20 11:35 Blood Blood Culture - Preliminary NO GROWTH AFTER 24 HOURS Resulted Laboratory Tests 03/30/20 18:01: POC Whole Blood Glucose 117H 03/30/20 21:16: POC Whole Blood Glucose 118H 03/31/20 05:40: White Blood Count 10.1, Red Blood Count 5.11, Hemoglobin 15.5, Hematocrit 45.3, Mean Corpuscular Volume 89, Mean Corpuscular Hemoglobin 30.3, Mean Corpuscular H emoglobin Concent 34.2, Red Cell Distribution Width 13.1, Platelet Count 121L, Mean Platelet Volume 6.6, Neutrophils (%) (Auto) 58.8, Lymphocytes (%) (Auto) 30.4, Monocytes (%) (Auto) 10.0, Eosinophils (%) (Auto) 0.1, Basophils (%) (Au to) 0.7, Sodium Level 136, Potassium Level 3.9, Chloride Level 102, Carbon Dioxide Level 29, Anion Gap 5, Blood Urea Nitrogen 28H, Creatinine 1.1, Estimat Glomerular Filtration Rate > 60, Glucose Level 98, Uric Acid 5.0, Calcium Level 8.5, Phosphorus Level 3.3, Magnesium Level 2.5H, Iron Level 133, Total Iron Binding Capacity 210L, Percent Iron Saturation 63H, Unsaturated Iron Binding 77L , Ferritin 178, Total Bilirubin 0.8, Gamma Glutamyl Transpeptidase 19, Aspartate Amino Transf (AST/SGOT) 13L, Alanine Aminotransferase (ALT/SGPT) 9L, Alkaline Phosphatase 54, C-Reactive Protein, Quantitative 1.2H, Pro-B-Type Natriuretic Peptide 832H, Total Protein 6.3L, Albumin 2.6L, Globulin 3.7, Albumin/Globulin Ratio 0.7L, Vitamin B12 Level 376, Folate 8.7, Valproic Acid (Depakene) Level 25L 03/31/20 06:10: POC Whole Blood Glucose [Pending] 03/31/20 12:11: POC Whole Blood Glucose 116H Current Medications Medications (Trade) Dose Ordered Sig/Ayah Route PRN Reason Start Time Stop Time Status Last Admin Dose Admin Acetaminophen (Tylenol) 650 mg Q4H PRN ORAL FEVER 03/29/20 18:00 04/28/20 17:59 Albuterol/ Ipratropium (Albuterol/ Ipratropium) 3 ml Q4H PRN HHN Shortness of Breath 03/29/20 18:00 04/03/20 17:59 Aztreonam 1 gm/ Sodium Chloride 50 ml @ 100 mls/hr EVERY 8 HOURS IVPB 03/29/20 22:00 04/05/20 21:59 03/31/20 05:38 Barium Sulfate (Varibar Honey) 250 ml NOW PRN RAD 03/30/20 13:30 04/02/20 13:17 Barium Sulfate (Varibar [place]) 240 ml NOW PRN RAD 03/30/20 13:30 04/02/20 13:17 Barium Sulfate (Varibar Pudding) 230 ml NOW PRN RAD 03/30/20 13:30 04/02/20 13:17 Barium Sulfate (Varibar Thin Liquid powder) 148 gm NOW PRN RAD 03/30/20 13:30 04/02/20 13:17 Carvedilol (Coreg) 6.25 mg EVERY 12 HOURS ORAL 03/30/20 21:30 04/28/20 21:59 03/31/20 08:59 Dextrose (Dextrose 50%) 25 ml Q30M PRN IV Hypoglycemia 03/29/20 21:30 06/27/20 21:29 Dextrose (Dextrose 50%) 50 ml Q30M PRN IV Hypoglycemia 03/29/20 21:30 06/27/20 21:29 Diltiazem HCl (Cardizem) 10 mg Q1H PRN IV heart rate more than 120, 03/29/20 18:00 04/28/20 17:59 Divalproex Sodium (Depakote) 750 mg Q12HR ORAL 03/29/20 21:00 04/28/20 20:59 03/31/20 09:00 Duloxetine HCl (Cymbalta) 30 mg DAILY ORAL 03/30/20 09:00 06/28/20 08:59 03/31/20 08:59 Enalaprilat (Vasotec) 2.5 mg Q6H PRN IV sbp more than 160 03/29/20 18:00 04/28/20 17:59 Finasteride (Proscar) 5 mg DAILY ORAL 03/30/20 09:00 06/28/20 08:59 03/31/20 08:59 Insulin Aspart (NovoLOG) BEFORE MEALS AND HS SUBQ 03/29/20 22:00 06/27/20 21:59 03/30/20 06:01 Labetalol HCl (Normodyne) 20 mg Q1H PRN IV sbp more than 180 03/29/20 18:00 04/28/20 17:59 Levothyroxine Sodium (Synthroid) 100 mcg Q24H ORAL 03/30/20 06:30 04/29/20 06:29 03/30/20 06:01 Memantine (Namenda) 10 mg Q12HR ORAL 03/29/20 21:00 04/28/20 20:59 03/31/20 08:59 Morphine Sulfate (Morphine Sulfate) 1 mg Q6H PRN IVP For Pain 03/31/20 00:00 04/07/20 00:00 03/31/20 05:09 Nitroglycerin (Ntg) 0.4 mg Q5M PRN SL Prn Chest Pain 03/29/20 18:00 04/28/20 17:59 Ondansetron HCl (Zofran) 4 mg Q6H PRN IVP Nausea & Vomiting 03/29/20 18:00 04/28/20 17:59 Pantoprazole (Protonix) 40 mg DAILY ORAL 03/30/20 09:00 04/29/20 08:59 03/31/20 08:58 Polyethylene Glycol (Miralax) 17 gm DAILYPRN PRN ORAL Constipation 03/29/20 18:00 04/28/20 17:59 Sodium Chloride 1,000 ml @ 75 mls/hr [id number] IV 03/30/20 13:30 04/29/20 13:29 03/31/20 02:42 Tamsulosin HCl (Flomax) 0.4 mg DAILY ORAL 03/30/20 09:00 04/29/20 08:59 03/31/20 08:58 Temazepam (Restoril) 15 mg HSPRN PRN ORAL Insomnia 03/29/20 18:00 04/05/20 17:59 Timolol Maleate (timoloL maleate 0.5% Op Soln) 1 drop TWICE A DAY BOTH EYES 03/29/20 20:00 04/28/20 19:59 03/31/20 09:00 Assessment/Plan Problems: (1) UTI (urinary tract infection) (2) Episode of generalized weakness (3) Uncontrolled hypertension (4) At high risk for aspiration (5) Seizure disorder (6) Hypothyroidism (7) Depression (8) Alzheimer's dementia (9) Diabetes mellitus Assessment/Plan Mental status improved, will try to feed the patient nice culture, all pending IV abx, on Aztreonam IV fluids check electrolytes sliding scale and diabetic diet dvt prophylaxis shelter meds reviewed. dvt prophylaxis. Gregory Frazier MD Mar 31, 2020 12:21
--- NOTE | 2020-03-31 13:37 | Infectious Diseases Prog Note ---
Assessment/Plan Assessment: COVID19 neg x1 (03/29 rapid COVID PCR Neg) -CXR: no acute disease UTI -u/a wbc tnct, nit neg, leuk +3; ucx <10k GNR Afebrile Leukocytosis, SP Abd pain -CT abd/p: Limited assessment of the GI tract, due to lack of enteric contrast administration. Equivocal mild urinary bladder wall thickening, could in part be an artifact of under distention but cystitis possible. Correlate with clinical findings. Evidence of prior cholecystectomy. Borderline cardiomegaly with suggestion of mild pulmonary venous congestion. Incidental findings as noted, including bilateral gynecomastia, degenerative spondylosis Accelerated hypertension -CT head: Chronic and age-related changes. Negative for acute intracranial bleed or mass effect CVA HTN dysphagia R ankle OA COPD BPH hx of L5 vertebral body fracture hx of sacrum fracture seizure disorder CHF bipolar disorder hypothyroidism Dm2 Dementia contractures [place] resident([facility]) Plan: -Continue empiric Aztreonam #3/5 pending ucx --03/29 SP Ceftriaxone x1, Azithromycin x1 -f/u cx -Monitor CBC/CMP, temperatures Thank you for this consultation. Will continue to follow along with you. Discussed with RN. Subjective Allergies: Coded Allergies: ASPIRIN (Verified Allergy, Unknown, 03/29/20) ENOXAPARIN (Verified Allergy, Unknown, 03/29/20) HEPARIN (Verified Allergy, Unknown, 03/29/20) PEANUT (Verified Allergy, Unknown, 03/29/20) PENICILLINS (Verified Allergy, Unknown, 03/30/20) tolerated Ceftriaxone 03/29/20 Uncoded Allergies: SEAFOOD (Allergy, Unknown, 03/29/20) afebrile leukocytosis resolved Objective Last 24 Hour Vital Signs Date Time Temp Pulse Resp B/P (MAP) Pulse Ox O2 Delivery O2 Flow Rate FiO2 03/31/20 12:00 97.5 66 18 134/80 (98) 96 03/31/20 12:00 64 03/31/20 09:00 Room Air 03/31/20 08:59 74 149/88 03/31/20 08:00 74 03/31/20 08:00 97.7 72 18 149/88 (108) 96 03/31/20 04:00 68 03/31/20 04:00 96.6 75 19 149/93 (111) 96 03/31/20 00:00 74 03/31/20 00:00 97.7 82 19 151/90 (110) 98 03/30/20 21:00 Room Air 03/30/20 20:00 97.7 83 20 156/89 (111) 97 03/30/20 20:00 72 03/30/20 16:00 69 03/30/20 16:00 97.9 72 20 150/84 (106) 97 Height (Feet): 6 Height (Inches): 0.00 Weight (Pounds): 233 HEAD AND NECK: Pupils are equal and reactive to light. Anicteric. NECK: Supple. No JVD. LUNGS: Good air entry. No wheezing or rhonchi. Decreased air in bases. HEART: S1, S2. Distant heart sounds. No murmurs or gallops. ABDOMEN: Soft, nondistended, nontender. Morbidly obese. Bowel sounds present. EXTREMITIES: No cyanosis, clubbing, or edema. Microbiology Date/Time Source Procedure Growth Status 03/30/20 01:40 Indwelling Cath Urine Culture - Preliminary NO GROWTH Resulted 03/29/20 17:44 Rectum VRE Culture - Final NO VANCOMYCIN RESISTANT ENTEROCOCCUS ... Complete 03/29/20 17:44 Nasal Nares MRSA Culture - Final Staphylococcus Aureus - Mrsa Complete 03/29/20 13:30 Urine,Clean Catch Urine Culture - Final Gram Negative Sam Complete 03/29/20 11:50 Nasopharynx SARS-CoV-2 RdRp Gene Assay - Final Complete 03/29/20 11:50 Blood Blood Culture - Preliminary NO GROWTH AFTER 24 HOURS Resulted 03/29/20 11:35 Blood Blood Culture - Preliminary NO GROWTH AFTER 24 HOURS Resulted Laboratory Tests Test 03/30/20 18:01 03/30/20 21:16 03/31/20 05:40 03/31/20 06:10 POC Whole Blood Glucose 117 MG/DL (74-106) H 118 MG/DL (74-106) H Pending White Blood Count 10.1 K/UL (4.8-10.8) Red Blood Count 5.11 M/UL (4.70-6.10) Hemoglobin 15.5 G/DL (14.2-18.0) Hematocrit 45.3 % (42.0-52.0) Mean Corpuscular Volume 89 FL (80-99) Mean Corpuscular Hemoglobin 30.3 PG (27.0-31.0) Mean Corpuscular Hemoglobin Concent 34.2 G/DL (32.0-36.0) Red Cell Distribution Width 13.1 % (11.6-14.8) Platelet Count 121 K/UL (150-450) L Mean Platelet Volume 6.6 FL (6.5-10.1) Neutrophils (%) (Auto) 58.8 % (45.0-75.0) Lymphocytes (%) (Auto) 30.4 % (20.0-45.0) Monocytes (%) (Auto) 10.0 % (1.0-10.0) Eosinophils (%) (Auto) 0.1 % (0.0-3.0) Basophils (%) (Auto) 0.7 % (0.0-2.0) Sodium Level 136 MMOL/L (136-145) Potassium Level 3.9 MMOL/L (3.5-5.1) Chloride Level 102 MMOL/L (98-107) Carbon Dioxide Level 29 MMOL/L (21-32) Anion Gap 5 mmol/L (5-15) Blood Urea Nitrogen 28 mg/dL (7-18) H Creatinine 1.1 MG/DL (0.55-1.30) Estimat Glomerular Filtration Rate > 60 mL/min (>60) Glucose Level 98 MG/DL (74-106) Uric Acid 5.0 MG/DL (2.6-7.2) Calcium Level 8.5 MG/DL (8.5-10.1) Phosphorus Level 3.3 MG/DL (2.5-4.9) Magnesium Level 2.5 MG/DL (1.8-2.4) H Iron Level 133 ug/dL (50-175) Total Iron Binding Capacity 210 ug/dL (250-450) L Percent Iron Saturation 63 % (15-50) H Unsaturated Iron Binding 77 ug/dL (112-346) L Ferritin 178 NG/ML (8-388) Total Bilirubin 0.8 MG/DL (0.2-1.0) Gamma Glutamyl Transpeptidase 19 U/L (5-85) Aspartate Amino Transf (AST/SGOT) 13 U/L (15-37) L Alanine Aminotransferase (ALT/SGPT) 9 U/L (12-78) L Alkaline Phosphatase 54 U/L (46-116) C-Reactive Protein, Quantitative 1.2 mg/dL (0.00-0.90) H Pro-B-Type Natriuretic Peptide 832 pg/mL (0-125) H Total Protein 6.3 G/DL (6.4-8.2) L Albumin 2.6 G/DL (3.4-5.0) L Globulin 3.7 g/dL Albumin/Globulin Ratio 0.7 (1.0-2.7) L Vitamin B12 Level 376 PG/ML (193-986) Folate 8.7 NG/ML (8.6-58.9) Valproic Acid (Depakene) Level 25 MCG/ML (50-100) L Test 03/31/20 12:11 POC Whole Blood Glucose 116 MG/DL (74-106) H Current Medications Medications (Trade) Dose Ordered Sig/Ayah Route PRN Reason Start Time Stop Time Status Last Admin Dose Admin Acetaminophen (Tylenol) 650 mg Q4H PRN ORAL FEVER 03/29/20 18:00 04/28/20 17:59 Albuterol/ Ipratropium (Albuterol/ Ipratropium) 3 ml Q4H PRN HHN Shortness of Breath 03/29/20 18:00 04/03/20 17:59 Aztreonam 1 gm/ Sodium Chloride 50 ml @ 100 mls/hr EVERY 8 HOURS IVPB 03/29/20 22:00 04/05/20 21:59 03/31/20 05:38 Barium Sulfate (Varibar [place]) 250 ml NOW PRN MC RAD 03/30/20 13:30 04/02/20 13:17 Barium Sulfate (Varibar [place]) 240 ml NOW PRN MC RAD 03/30/20 13:30 04/02/20 13:17 Barium Sulfate (Varibar Pud[place]) 230 ml NOW PRN MC RAD 03/30/20 13:30 04/02/20 13:17 Barium Sulfate (Varibar Thin Liquid powder) 148 gm NOW PRN MC RAD 03/30/20 13:30 04/02/20 13:17 Carvedilol (Coreg) 6.25 mg EVERY 12 HOURS ORAL 03/30/20 21:30 04/28/20 21:59 03/31/20 08:59 Dextrose (Dextrose 50%) 25 ml Q30M PRN IV Hypoglycemia 03/29/20 21:30 06/27/20 21:29 Dextrose (Dextrose 50%) 50 ml Q30M PRN IV Hypoglycemia 03/29/20 21:30 06/27/20 21:29 Diltiazem HCl (Cardizem) 10 mg Q1H PRN IV heart rate more than 120, 03/29/20 18:00 04/28/20 17:59 Divalproex Sodium (Depakote) 750 mg Q12HR ORAL 03/29/20 21:00 04/28/20 20:59 03/31/20 09:00 Duloxetine HCl (Cymbalta) 30 mg DAILY ORAL 03/30/20 09:00 06/28/20 08:59 03/31/20 08:59 Enalaprilat (Vasotec) 2.5 mg Q6H PRN IV sbp more than 160 03/29/20 18:00 04/28/20 17:59 Finasteride (Proscar) 5 mg DAILY ORAL 03/30/20 09:00 06/28/20 08:59 03/31/20 08:59 Insulin Aspart (NovoLOG) BEFORE MEALS AND HS SUBQ 03/29/20 22:00 06/27/20 21:59 03/30/20 06:01 Labetalol HCl (Normodyne) 20 mg Q1H PRN IV sbp more than 180 03/29/20 18:00 04/28/20 17:59 Levothyroxine Sodium (Synthroid) 100 mcg Q24H ORAL 03/30/20 06:30 04/29/20 06:29 03/30/20 06:01 Memantine (Namenda) 10 mg Q12HR ORAL 03/29/20 21:00 04/28/20 20:59 03/31/20 08:59 Morphine Sulfate (Morphine Sulfate) 1 mg Q6H PRN IVP For Pain 03/31/20 00:00 04/07/20 00:00 03/31/20 05:09 Nitroglycerin (Ntg) 0.4 mg Q5M PRN SL Prn Chest Pain 03/29/20 18:00 04/28/20 17:59 Ondansetron HCl (Zofran) 4 mg Q6H PRN IVP Nausea & Vomiting 03/29/20 18:00 04/28/20 17:59 Pantoprazole (Protonix) 40 mg DAILY ORAL 03/30/20 09:00 04/29/20 08:59 03/31/20 08:58 Polyethylene Glycol (Miralax) 17 gm DAILYPRN PRN ORAL Constipation 03/29/20 18:00 04/28/20 17:59 Sodium Chloride 1,000 ml @ 75 mls/hr [id number] IV 03/30/20 13:30 04/29/20 13:29 03/31/20 02:42 Tamsulosin HCl (Flomax) 0.4 mg DAILY ORAL 03/30/20 09:00 04/29/20 08:59 03/31/20 08:58 Temazepam (Restoril) 15 mg HSPRN PRN ORAL Insomnia 03/29/20 18:00 04/05/20 17:59 Timolol Maleate (timoloL maleate 0.5% Op Soln) 1 drop TWICE A DAY BOTH EYES 03/29/20 20:00 04/28/20 19:59 03/31/20 09:00 Riana Wong M.D. Mar 31, 2020 13:36
--- NOTE | 2020-03-31 14:24 | Internal Med Progress Note ---
Subjective Physician Name Jacob Tavera Attending Physician Jacob Tavera MD Current Medications Medications (Trade) Dose Ordered Sig/Ayah Route PRN Reason Start Time Stop Time Status Last Admin Dose Admin Acetaminophen (Tylenol) 650 mg Q4H PRN ORAL FEVER 03/29/20 18:00 04/28/20 17:59 Albuterol/ Ipratropium (Albuterol/ Ipratropium) 3 ml Q4H PRN HHN Shortness of Breath 03/29/20 18:00 04/03/20 17:59 Aztreonam 1 gm/ Sodium Chloride 50 ml @ 100 mls/hr EVERY 8 HOURS IVPB 03/29/20 22:00 04/05/20 21:59 03/31/20 13:52 Barium Sulfate (Varibar Honey) 250 ml NOW PRN MC RAD 03/30/20 13:30 04/02/20 13:17 Barium Sulfate (Varibar [place]) 240 ml NOW PRN MC RAD 03/30/20 13:30 04/02/20 13:17 Barium Sulfate (Varibar Pudding) 230 ml NOW PRN MC RAD 03/30/20 13:30 04/02/20 13:17 Barium Sulfate (Varibar Thin Liquid powder) 148 gm NOW PRN MC RAD 03/30/20 13:30 04/02/20 13:17 Carvedilol (Coreg) 6.25 mg EVERY 12 HOURS ORAL 03/30/20 21:30 04/28/20 21:59 03/31/20 08:59 Dextrose (Dextrose 50%) 25 ml Q30M PRN IV Hypoglycemia 03/29/20 21:30 06/27/20 21:29 Dextrose (Dextrose 50%) 50 ml Q30M PRN IV Hypoglycemia 03/29/20 21:30 06/27/20 21:29 Diltiazem HCl (Cardizem) 10 mg Q1H PRN IV heart rate more than 120, 03/29/20 18:00 04/28/20 17:59 Divalproex Sodium (Depakote) 750 mg Q12HR ORAL 03/29/20 21:00 04/28/20 20:59 03/31/20 09:00 Duloxetine HCl (Cymbalta) 30 mg DAILY ORAL 03/30/20 09:00 06/28/20 08:59 03/31/20 08:59 Enalaprilat (Vasotec) 2.5 mg Q6H PRN IV sbp more than 160 03/29/20 18:00 04/28/20 17:59 Finasteride (Proscar) 5 mg DAILY ORAL 03/30/20 09:00 06/28/20 08:59 03/31/20 08:59 Insulin Aspart (NovoLOG) BEFORE MEALS AND HS SUBQ 03/29/20 22:00 06/27/20 21:59 03/30/20 06:01 Labetalol HCl (Normodyne) 20 mg Q1H PRN IV sbp more than 180 03/29/20 18:00 04/28/20 17:59 Levothyroxine Sodium (Synthroid) 100 mcg Q24H ORAL 03/30/20 06:30 04/29/20 06:29 03/30/20 06:01 Memantine (Namenda) 10 mg Q12HR ORAL 03/29/20 21:00 04/28/20 20:59 03/31/20 08:59 Morphine Sulfate (Morphine Sulfate) 1 mg Q6H PRN IVP For Pain 03/31/20 00:00 04/07/20 00:00 03/31/20 05:09 Nitroglycerin (Ntg) 0.4 mg Q5M PRN SL Prn Chest Pain 03/29/20 18:00 04/28/20 17:59 Ondansetron HCl (Zofran) 4 mg Q6H PRN IVP Nausea & Vomiting 03/29/20 18:00 04/28/20 17:59 Pantoprazole (Protonix) 40 mg DAILY ORAL 03/30/20 09:00 04/29/20 08:59 03/31/20 08:58 Polyethylene Glycol (Miralax) 17 gm DAILYPRN PRN ORAL Constipation 03/29/20 18:00 04/28/20 17:59 Sodium Chloride 1,000 ml @ 75 mls/hr [id number] IV 03/30/20 13:30 04/29/20 13:29 03/31/20 02:42 Tamsulosin HCl (Flomax) 0.4 mg DAILY ORAL 03/30/20 09:00 04/29/20 08:59 03/31/20 08:58 Temazepam (Restoril) 15 mg HSPRN PRN ORAL Insomnia 03/29/20 18:00 04/05/20 17:59 Timolol Maleate (timoloL maleate 0.5% Op Soln) 1 drop TWICE A DAY BOTH EYES 03/29/20 20:00 04/28/20 19:59 03/31/20 09:00 Allergies: Coded Allergies: ASPIRIN (Verified Allergy, Unknown, 03/29/20) ENOXAPARIN (Verified Allergy, Unknown, 03/29/20) HEPARIN (Verified Allergy, Unknown, 03/29/20) PEANUT (Verified Allergy, Unknown, 03/29/20) PENICILLINS (Verified Allergy, Unknown, 03/30/20) tolerated Ceftriaxone 03/29/20 Uncoded Allergies: SEAFOOD (Allergy, Unknown, 03/29/20) Subjective Awake, more responsive, no acute distress, talking more, eating by himself, denies any chest pain or shortness of breath, WBC: 11.1 Objective Last Vital Signs Date Time Temp Pulse Resp B/P (MAP) Pulse Ox O2 Delivery O2 Flow Rate FiO2 03/31/20 12:00 97.5 66 18 134/80 (98) 96 03/31/20 09:00 Room Air Laboratory Tests Test 03/30/20 18:01 03/30/20 21:16 03/31/20 05:40 03/31/20 06:10 POC Whole Blood Glucose 117 MG/DL (74-106) H 118 MG/DL (74-106) H Pending White Blood Count 10.1 K/UL (4.8-10.8) Red Blood Count 5.11 M/UL (4.70-6.10) Hemoglobin 15.5 G/DL (14.2-18.0) Hematocrit 45.3 % (42.0-52.0) Mean Corpuscular Volume 89 FL (80-99) Mean Corpuscular Hemoglobin 30.3 PG (27.0-31.0) Mean Corpuscular Hemoglobin Concent 34.2 G/DL (32.0-36.0) Red Cell Distribution Width 13.1 % (11.6-14.8) Platelet Count 121 K/UL (150-450) L Mean Platelet Volume 6.6 FL (6.5-10.1) Neutrophils (%) (Auto) 58.8 % (45.0-75.0) Lymphocytes (%) (Auto) 30.4 % (20.0-45.0) Monocytes (%) (Auto) 10.0 % (1.0-10.0) Eosinophils (%) (Auto) 0.1 % (0.0-3.0) Basophils (%) (Auto) 0.7 % (0.0-2.0) Sodium Level 136 MMOL/L (136-145) Potassium Level 3.9 MMOL/L (3.5-5.1) Chloride Level 102 MMOL/L (98-107) Carbon Dioxide Level 29 MMOL/L (21-32) Anion Gap 5 mmol/L (5-15) Blood Urea Nitrogen 28 mg/dL (7-18) H Creatinine 1.1 MG/DL (0.55-1.30) Estimat Glomerular Filtration Rate > 60 mL/min (>60) Glucose Level 98 MG/DL (74-106) Uric Acid 5.0 MG/DL (2.6-7.2) Calcium Level 8.5 MG/DL (8.5-10.1) Phosphorus Level 3.3 MG/DL (2.5-4.9) Magnesium Level 2.5 MG/DL (1.8-2.4) H Iron Level 133 ug/dL (50-175) Total Iron Binding Capacity 210 ug/dL (250-450) L Percent Iron Saturation 63 % (15-50) H Unsaturated Iron Binding 77 ug/dL (112-346) L Ferritin 178 NG/ML (8-388) Total Bilirubin 0.8 MG/DL (0.2-1.0) Gamma Glutamyl Transpeptidase 19 U/L (5-85) Aspartate Amino Transf (AST/SGOT) 13 U/L (15-37) L Alanine Aminotransferase (ALT/SGPT) 9 U/L (12-78) L Alkaline Phosphatase 54 U/L (46-116) C-Reactive Protein, Quantitative 1.2 mg/dL (0.00-0.90) H Pro-B-Type Natriuretic Peptide 832 pg/mL (0-125) H Total Protein 6.3 G/DL (6.4-8.2) L Albumin 2.6 G/DL (3.4-5.0) L Globulin 3.7 g/dL Albumin/Globulin Ratio 0.7 (1.0-2.7) L Vitamin B12 Level 376 PG/ML (193-986) Folate 8.7 NG/ML (8.6-58.9) Valproic Acid (Depakene) Level 25 MCG/ML (50-100) L Test 03/31/20 12:11 POC Whole Blood Glucose 116 MG/DL (74-106) H Microbiology Date/Time Source Procedure Growth Status 03/30/20 01:40 Indwelling Cath Urine Culture - Preliminary NO GROWTH Resulted 03/29/20 17:44 Rectum VRE Culture - Final NO VANCOMYCIN RESISTANT ENTEROCOCCUS ... Complete 03/29/20 17:44 Nasal Nares MRSA Culture - Final Staphylococcus Aureus - Mrsa Complete 03/29/20 13:30 Urine,Clean Catch Urine Culture - Final Gram Negative Sam Complete 03/29/20 11:50 Nasopharynx SARS-CoV-2 RdRp Gene Assay - Final Complete 03/29/20 11:50 Blood Blood Culture - Preliminary NO GROWTH AFTER 24 HOURS Resulted 03/29/20 11:35 Blood Blood Culture - Preliminary NO GROWTH AFTER 24 HOURS Resulted Intake and Output 03/30/20 03/31/20 19:00 07:00 Intake Total 120 ml 75 ml Output Total 250 ml 700 ml Balance -130 ml -625 ml Intake Oral 120 ml IV Total 75 ml Output Urine Total 250 ml 700 ml Objective GENERAL: wake, more responsive, talking more. HEAD AND NECK: Pupils are equal and reactive to light. Anicteric. NECK: Supple. No JVD. LUNGS: Good air entry. No wheezing or rhonchi. Decreased air in bases. HEART: S1, S2. Distant heart sounds. No murmurs or gallops. ABDOMEN: Soft, nondistended, nontender. Morbidly obese. Bowel sounds present. EXTREMITIES: No cyanosis, clubbing, or edema. NEUROLOGIC: alert and oriented 3, CN 2-12 grossly intact, moving upper extremities, left lower extremity weaker than right side. RECTAL: Refused and deferred. GENITOURINARY: Refused and deferred. PSYCHIATRIC: Mood and affect intact. Assessment/Plan Assessment/Plan ASSESSMENT: 1. Sepsis secondary to urinary tract infection. 2. History of CVA. 3. Prior history of heart failure. 4. Major depression disorder. 5. Diabetic type 2. 6. BPH. 7. Bipolar disorder. 8. COPD. 9. Hyponatremia. 10. Dehydration. 11. The patient has a history of hypothyroidism. PLAN: In monitor unit, Transfer to Med /surg unit monitor laboratory as well as culture. Abx: Azactam. F/U blood glucose level monitoring, Accu-Cheks. Dr. Frazier from Pulmonary Critical Care Dr. Kirk from Nephrology. DVT prophylaxis: Heparin subcu CODE STATUS: DNR. DC IVF. Jacob Tavera MD Mar 31, 2020 14:24
--- NOTE | 2020-03-31 14:44 | NUR ---
NURSE NOTES: Dr. Tavera saw patient on rounds, notified of swelling in scrotal area; also clarified DVT ppx as pt is allergic to ASA, lovenox and heparin. Received orders to D/C IV fluids, start pt on Xarelto 10mg QD and transfer to [facility]. Orders noted and carried out.
--- NOTE | 2020-03-31 14:46 | NUR ---
CASE MANAGEMENT:REVIEW 03/31/20 SI:UTI. CYSTITIS 97.5 66 18 134/80 96% ON RA PLT-121 BUN+28 GLUCOSE+116 IS: IV AZACTAM Q8HR XARELTO PO QD IV MORPHINE Q6HRS PRN COREG PO Q12 PROTONIX PO QD FLOMAX PO QD PROSCAR PO QD CYMBALTA PO QD SYNTHROID PO Q24 : TELEMETRY STATUS DCP: FROM [facility] PLAN: DOWNGRADE TO MED/SURG
--- NOTE | 2020-03-31 15:43 | NUR ---
SPEECH PATHOLOGY NOTE: INITIAL IMPRESSION: MILD OROPHARYNGEAL DYSPHAGIA. HISTORY OF CHOKE/COUGH EPISODES. RECOMMENDATIONS: 1. CONTINUE CURRENT MODIFIED TEXTURE DIET: MECH SOFT/CHOPPED, AND THIN LIQUIDS 2. SET UP ASSIST, MEDS TOLERATED 3. IN LIGHT OF HIS HX WITH CHOKE/COUGH EPISODES AND NEUROLOGIC HISTORY, A VIDEO SWALLOW STUDY IS RECOMMENDED 4. SKILLED ST FOR DYSPHAGIA TX/MANAGEMENT THANK YOU FOR THIS REFERRAL.
[2020-03-31 16:00] VITALS: BP 138/75
[2020-03-31] MEDS ORDERED: Tubing IV Secondary IV ONE (16:35)
--- NOTE | 2020-03-31 19:34 | NUR ---
NURSE NOTES: The Patient is alert and [id number] x3 and is responsive with his care and doesn't seem to be in any acute distress at this time.The Resp is even and unlabored. He is Sinus rhythms.The patient has a Right AC 18g that is patent and asymptomatic. A Arias catheter was noted draining under gravity of pale yellowish urine.The bed in low level and call light within easy reach and the siderails up x2. Siderails padded for seizure precaution.Will continue to monitor as indicated.
--- NOTE | 2020-03-31 19:35 | NUR ---
NURSE HAND-OFF REPORT: Important Events on Shift: For transfer to [facility] pending room, swallow eval done and ok with current diet; Eliquis for DVT, IVF D'c'd Patient Status: Stable Diet: CCHO med, mech soft chopped Pending Orders: N Pending Results/Labs: N Pending MD notification:N Latest Vital Signs: Temperature 97.5 , Pulse 73 , B/P 138 /75 , Respiratory Rate 18 , O2 SAT 93 , Room Air, O2 Flow Rate . Vital Sign Comment: EKG Rhythm: SR w/ 1st degree AVB Rhythm change?: N MD Notified?: - MD Response: Latest Valladares Fall Score: 50 Fall Risk: High Risk Safety Measures: Call light Within Reach, Bed Alarm Zone 1, Side Rails Side Rails x2, Bed position Low and Locked. Fall Precautions: Yellow Socks Yellow Gown Door Sign Patient Fall Education Report given to Michael RN.
[2020-03-31 20:00] VITALS: BP 151/85
--- NOTE | 2020-03-31 22:57 | NUR ---
HAND-OFF: Report given to MONSTER Guerrero :The patient was transfered to [facility] room 409-2, swallow eval done and ok with current diet; Eliquis for DVT, IVF D'c'd Patient Status: Stable and is on room air Diet: CCHO med, mech soft chopped well tolerated.The patient was also tranfered with A patel due to urine retension.Endoreded to Yolanda that the patient has a Scrotum swelling and blencheable redness in the sacral area.
--- NOTE | 2020-03-31 23:00 | NUR ---
NURSE NOTES: PATIENT TRANSFERRED FROM [facility] TO [facility] ROOM 409 IN STABLE CONDITION. PATIENT ALERT/ORIENTED X3, NOTED WITH PERIODS OF FORGETFULNESS, DENIES PAIN. NO SIGNS AND SYMPTOMS OF ACUTE CARDIO RESPIRATORY DISTRESS/SHORTNESS OF BREATH, DENIES CHEST PAIN. PATIENT OBESE. REQUIRE ASSISTANCE WITH ADL'S. OPTIFOAM NOTED TO SACRAL AND BILATERAL HEELS/PROPHYLAXIS, ELEVATED EACH LOWER EXTREMITY ON PILLOW LENGTH BLISS WITH HEELS FLOATING. ABDOMEN SOFT/ROUND/BOWEL SOUNDS AUDIBLE, DENIES N/V/D. ORIENTATED PATIENT TO ROOM/ENVIRONMENT. SIDE RAILS UP X2, BED IN LOWEST POSITION FOR SAFETY, ENCOURAGED PATIENT TO UTILIZE CALL LIGHT FOR ASSISTANCE, VERBALIZED UNDERSTANDING. CONTINUE WITH CURRENT PLAN OF CARE. NAD.
[2020-04-01] VITALS: BP 147/87
[2020-04-01 04:00] VITALS: BP 134/82
[2020-04-01] MEDS: Aztreonam Inj 1 GM in NS 50 ML IVPB SCH ×3 (05:33→22:02)
[2020-04-01] MEDS: NovoLOG Insulin Flexpen SUBQ SCH ×4 (06:30→21:00)
--- NOTE | 2020-04-01 07:35 | NUR ---
NURSE NOTES: Received patient in bed,awake, patient is having breakfast. Denies pain or discomfort. side rails padded for seizure precaution without seizure activity. Arias is intact, no sediment or blood noted. IV is intact, no s/s of infiltration. Will continue plan of care.
[2020-04-01 08:00] VITALS: BP 157/81
--- NOTE | 2020-04-01 08:02 | NUR ---
NURSE HAND-OFF: Important Events on Shift:[UNEVENTFUL NIGHT, TRANSFERRED FROM [facility]] Patient Status: [STABLE, AFEBRILE] Diet: CCHO M MS CHOPPED Pending Orders: N/A Pending Results/Labs:N/A Pending MD notification:N/A Latest Vital Signs: Temperature 97.8 , Pulse 68 , B/P 134 /82 , Respiratory Rate 18 , O2 SAT 96 , Room Air, O2 Flow Rate . Vital Sign Comment: STABLE, AFEBRILE Latest Valladares Fall Score: 50 Fall Risk: High Risk Safety Measures: Call light Within Reach, Bed Alarm Zone 1, Side Rails Side Rails x2, Bed position Low and Locked. Fall Precautions: Yellow Socks Yellow Gown Door Sign Patient Fall Education Report given to MONSTER CHAN.
[2020-04-01] MEDS: DULoxetine 30mg cap ORAL SCH (08:16)
[2020-04-01] MEDS: Xarelto 10mg tab ORAL SCH (08:17)
[2020-04-01] MEDS: Carvedilol 6.25mg Tab ORAL SCH ×2 (08:17→21:14)
[2020-04-01] MEDS: Memantine 10mg tab ORAL SCH ×2 (08:17→21:14)
[2020-04-01] MEDS: Tamsulosin 0.4mg cap ORAL SCH (08:17)
--- NOTE | 2020-04-01 09:30 | NUR ---
NURSE NOTES: Patient was transferred from tele in previous shift. Unable to fine timolol eye drops in 4E and 2E. Spoke to pharmacy intake coordinator. Pharmacy took the eye drops and insulin pen to [facility]abel. Will bring them up with new labe. Addendum: 04/01/20 at 1351 by REBECA CHAN RN find not fine
--- NOTE | 2020-04-01 09:43 | Pulmonology Progress Note ---
Subjective ROS Limited/Unobtainable: No Constitutional: Reports: no symptoms HEENT: Repors: no symptoms Allergies: Coded Allergies: ASPIRIN (Verified Allergy, Unknown, 03/29/20) ENOXAPARIN (Verified Allergy, Unknown, 03/29/20) HEPARIN (Verified Allergy, Unknown, 03/29/20) PEANUT (Verified Allergy, Unknown, 03/29/20) PENICILLINS (Verified Allergy, Unknown, 03/30/20) tolerated Ceftriaxone 03/29/20 Uncoded Allergies: SEAFOOD (Allergy, Unknown, 03/29/20) Subjective leuk resolved, no fevers BP better on RA pulse ox stable Objective Last 24 Hour Vital Signs Date Time Temp Pulse Resp B/P (MAP) Pulse Ox O2 Delivery O2 Flow Rate FiO2 04/01/20 08:17 70 157/81 04/01/20 08:00 97.5 70 18 157/81 (106) 98 04/01/20 04:00 97.8 68 18 134/82 (99) 96 04/01/20 00:00 98.7 75 20 147/87 (107) 97 03/31/20 21:00 Room Air 03/31/20 20:35 67 151/85 03/31/20 20:00 98.2 67 20 151/85 (107) 96 03/31/20 16:00 70 03/31/20 16:00 97.5 73 18 138/75 (96) 93 03/31/20 12:00 97.5 66 18 134/80 (98) 96 03/31/20 12:00 64 Intake and Output 03/31/20 04/01/20 19:00 07:00 Intake Total 1215 ml 360 ml Output Total 850 ml Balance 365 ml 360 ml Intake Oral 640 ml 360 ml IV Total 575 ml Output Urine Total 850 ml General Appearance: WD/WN, no acute distress, other - A/A/O x 4 bedridden male HEENT: normocephalic, atraumatic, anicteric, mucous membranes moist Respiratory: chest wall non-tender, lungs clear - with moderate air exchange , normal breath sounds Cardiovascular: normal peripheral pulses, normal rate Abdomen: normal bowel sounds, soft, non tender Genitourinary: normal external genitalia Extremities: no edema Neurologic: abnormal gait - bedridden , alert, oriented x 3, responsive Musculoskeletal: atrophy - BLE Microbiology Date/Time Source Procedure Growth Status 11/5/20 01:40 Indwelling Cath Urine Culture - Final NO GROWTH AFTER 48 HOURS Complete 03/29/20 17:46 Rectum - Final NO CARBAPENEM-RESISTANT ENTEROBACTERI... Complete 03/29/20 17:44 Rectum VRE Culture - Final NO VANCOMYCIN RESISTANT ENTEROCOCCUS ... Complete 03/29/20 17:44 Nasal Nares MRSA Culture - Final Staphylococcus Aureus - Mrsa Complete 03/29/20 13:30 Urine,Clean Catch Urine Culture - Final Gram Negative Sam Complete 03/29/20 11:50 Nasopharynx SARS-CoV-2 RdRp Gene Assay - Final Complete 03/29/20 11:50 Blood Blood Culture - Preliminary NO GROWTH AFTER 48 HOURS Resulted 03/29/20 11:35 Blood Blood Culture - Preliminary NO GROWTH AFTER 48 HOURS Resulted Laboratory Tests 03/31/20 12:11: POC Whole Blood Glucose 116H 03/31/20 16:20: POC Whole Blood Glucose 130H 03/31/20 20:42: POC Whole Blood Glucose 112H 04/01/20 06:31: POC Whole Blood Glucose 109H Current Medications Medications (Trade) Dose Ordered Sig/Ayah Route PRN Reason Start Time Stop Time Status Last Admin Dose Admin Acetaminophen (Tylenol) 650 mg Q4H PRN ORAL FEVER 03/29/20 18:00 04/28/20 17:59 Albuterol/ Ipratropium (Albuterol/ Ipratropium) 3 ml Q4H PRN HHN Shortness of Breath 03/29/20 18:00 04/03/20 17:59 Aztreonam 1 gm/ Sodium Chloride 50 ml @ 100 mls/hr EVERY 8 HOURS IVPB 03/29/20 22:00 04/05/20 21:59 04/01/20 05:33 Barium Sulfate (Varibar Honey) 250 ml NOW PRN MC RAD 03/30/20 13:30 04/02/20 13:17 Barium Sulfate (Varibar [place]) 240 ml NOW PRN MC RAD 03/30/20 13:30 04/02/20 13:17 Barium Sulfate (Varibar Pudding) 230 ml NOW PRN MC RAD 03/30/20 13:30 04/02/20 13:17 Barium Sulfate (Varibar Thin Liquid powder) 148 gm NOW PRN MC RAD 03/30/20 13:30 04/02/20 13:17 Carvedilol (Coreg) 6.25 mg EVERY 12 HOURS ORAL 03/30/20 21:30 04/28/20 21:59 04/01/20 08:17 Dextrose (Dextrose 50%) 25 ml Q30M PRN IV Hypoglycemia 03/29/20 21:30 06/27/20 21:29 Dextrose (Dextrose 50%) 50 ml Q30M PRN IV Hypoglycemia 03/29/20 21:30 06/27/20 21:29 Divalproex Sodium (Depakote) 750 mg Q12HR ORAL 03/29/20 21:00 04/28/20 20:59 04/01/20 08:18 Duloxetine HCl (Cymbalta) 30 mg DAILY ORAL 03/30/20 09:00 06/28/20 08:59 04/01/20 08:16 Enalaprilat (Vasotec) 2.5 mg Q6H PRN IV sbp more than 160 03/29/20 18:00 04/28/20 17:59 Finasteride (Proscar) 5 mg DAILY ORAL 03/30/20 09:00 06/28/20 08:59 04/01/20 08:16 Insulin Aspart (NovoLOG) BEFORE MEALS AND HS SUBQ 03/29/20 22:00 06/27/20 21:59 03/30/20 06:01 Levothyroxine Sodium (Synthroid) 100 mcg Q24H ORAL 03/30/20 06:30 04/29/20 06:29 04/01/20 06:27 Memantine (Namenda) 10 mg Q12HR ORAL 03/29/20 21:00 04/28/20 20:59 04/01/20 08:17 Morphine Sulfate (Morphine Sulfate) 1 mg Q6H PRN IVP For Pain 03/31/20 00:00 04/07/20 00:00 03/31/20 05:09 Nitroglycerin (Ntg) 0.4 mg Q5M PRN SL Prn Chest Pain 03/29/20 18:00 04/28/20 17:59 Ondansetron HCl (Zofran) 4 mg Q6H PRN IVP Nausea & Vomiting 03/29/20 18:00 04/28/20 17:59 Pantoprazole (Protonix) 40 mg DAILY ORAL 03/30/20 09:00 04/29/20 08:59 04/01/20 08:17 Polyethylene Glycol (Miralax) 17 gm DAILYPRN PRN ORAL Constipation 03/29/20 18:00 04/28/20 17:59 Rivaroxaban (Xarelto) 10 mg DAILY ORAL 04/01/20 09:00 06/30/20 08:59 04/01/20 08:17 Tamsulosin HCl (Flomax) 0.4 mg DAILY ORAL 03/30/20 09:00 04/29/20 08:59 04/01/20 08:17 Temazepam (Restoril) 15 mg HSPRN PRN ORAL Insomnia 03/29/20 18:00 04/05/20 17:59 Timolol Maleate (timoloL maleate 0.5% Op Soln) 1 drop TWICE A DAY BOTH EYES 03/29/20 20:00 04/28/20 19:59 03/31/20 17:15 Assessment/Plan Assessment/Plan ASSESSMENT Sepsis Probable UTI Hypertension with initial hypertensive urgency Dehydration Hyponatremia History of CVA COPD Diabetes mellitus Hypothyroidism BPH Dementia History of CHF PLAN of CARE MS floor O2 prn to keep sat above 92 strict aspiration precaution CXR clear swallow eval noted diet texture as per ST recs with strict aspiration precaution on Xarelto low dose /probably for secondary prevention of CVA?, lipid panel stable check venous duplex BLE Echo with pEF 55% monitor volumes BP regimen optimized , BP stable currently s/p IVF I avoid nephrotoxic monitor electrolytes , hypoNa resolved nephro follows continue Proscar and Flomax emp abx 03/30 UCX NGT, prior 03/29 UCX with < 10 K GNR remans afebrile, no leukocytosis probably dc abx - per ID recs CT head no acute IC pathology TSH WNL , continue current dose of levothyroxine BS management with SSI supportive care DNR with selective treatment case discussed and evaluated by supervising physician case discussed and evaluated by supervising physician Shelly Keenan NP Apr 01, 2020 09:43
[2020-04-01] MEDS: timoloL maleate 0.5% Op Soln 2.5ml BOTH EYES SCH ×2 (10:17→17:19)
--- NOTE | 2020-04-01 10:21 | Diagnostic Imaging Report ---
EXAM: US Duplex Bilateral Lower Extremities Veins CLINICAL HISTORY: SOB TECHNIQUE: Real-time duplex ultrasound scan of the bilateral lower extremity veins integrating B-mode two-dimensional vascular structure, Doppler spectral analysis, color flow Doppler imaging and compression. COMPARISON: None FINDINGS: Right deep veins: Unremarkable. No DVT in the right common femoral, femoral, proximal deep femoral or popliteal veins. The veins demonstrate normal color flow, are normally compressible, with normal phasic flow and/or augmentation response. Right superficial veins: Unremarkable. No thrombus in the visualized right great saphenous vein. Left deep veins: Unremarkable. No DVT in the left common femoral, femoral, proximal deep femoral or popliteal veins. The veins demonstrate normal color flow, are normally compressible, with normal phasic flow and/or augmentation response. Left superficial veins: Unremarkable. No thrombus in the visualized left great saphenous vein. Soft tissues: No acute findings. No popliteal cyst. IMPRESSION: No deep venous thrombosis identified in either lower extremity.
--- NOTE | 2020-04-01 10:30 | NUR ---
NURSE NOTES: RN performed skin assessment earlier noted with left and right buttocks with purplish and reddish in color. Patient admitted with purplish and reddish skin on left and right buttocks according to wound photo but more reddish and purplish upon assessment. Wound photo was obtained from night nurse last night and was uploaded this morning and Rn took pictures again and uploaded. RN relayed Shelly with new order for wound care eval. wound dressing was changed.
[2020-04-01 12:00] VITALS: BP 153/81
--- NOTE | 2020-04-01 12:00 | Nephrology Progress Note ---
Assessment/Plan Problem List: (1) Electrolyte imbalance (2) Dehydration (3) Hypothyroidism (4) Uncontrolled hypertension Assessment Severe dehydration Hyponatremia Sepsis, UTI BPH Depression, bipolar disease Hypothyroidism Plan April 01: No labs drawn today. Stable from renal standpoint of view. Hydrate Monitor electrolyte renal parameters Adjust BP meds as needed Per orders Subjective ROS Limited/Unobtainable: Yes Objective Objective Last 24 Hour Vital Signs Date Time Temp Pulse Resp B/P (MAP) Pulse Ox O2 Delivery O2 Flow Rate FiO2 04/01/20 09:00 Room Air 04/01/20 08:17 70 157/81 04/01/20 08:00 97.5 70 18 157/81 (106) 98 04/01/20 04:00 97.8 68 18 134/82 (99) 96 04/01/20 00:00 98.7 75 20 147/87 (107) 97 03/31/20 21:00 Room Air 03/31/20 20:35 67 151/85 03/31/20 20:00 98.2 67 20 151/85 (107) 96 03/31/20 16:00 70 03/31/20 16:00 97.5 73 18 138/75 (96) 93 Intake and Output 03/31/20 04/01/20 19:00 07:00 Intake Total 1215 ml 360 ml Output Total 850 ml Balance 365 ml 360 ml Intake Oral 640 ml 360 ml IV Total 575 ml Output Urine Total 850 ml No chemistry panel drawn today laboratory Tests 03/31/20 12:11: POC Whole Blood Glucose 116H 03/31/20 16:20: POC Whole Blood Glucose 130H 03/31/20 20:42: POC Whole Blood Glucose 112H 04/01/20 06:31: POC Whole Blood Glucose 109H Height (Feet): 6 Height (Inches): 0.00 Weight (Pounds): 233 General Appearance: no apparent distress Objective No change Montana Kirk MD Apr 01, 2020 12:00
--- NOTE | 2020-04-01 15:49 | Internal Med Progress Note ---
Subjective Date of Service: Apr 01, 2020 Physician Name Nakul Abdi Attending Physician Jacob Tavera MD Current Medications Medications (Trade) Dose Ordered Sig/Ayah Route PRN Reason Start Time Stop Time Status Last Admin Dose Admin Acetaminophen (Tylenol) 650 mg Q4H PRN ORAL FEVER 03/29/20 18:00 04/28/20 17:59 Albuterol/ Ipratropium (Albuterol/ Ipratropium) 3 ml Q4H PRN HHN Shortness of Breath 03/29/20 18:00 04/03/20 17:59 Aztreonam 1 gm/ Sodium Chloride 50 ml @ 100 mls/hr EVERY 8 HOURS IVPB 03/29/20 22:00 04/05/20 21:59 04/01/20 13:34 Barium Sulfate (Varibar Honey) 250 ml NOW PRN MC RAD 03/30/20 13:30 04/02/20 13:17 Barium Sulfate (Varibar [place]) 240 ml NOW PRN MC RAD 03/30/20 13:30 04/02/20 13:17 Barium Sulfate (Varibar Pudding) 230 ml NOW PRN MC RAD 03/30/20 13:30 04/02/20 13:17 Barium Sulfate (Varibar Thin Liquid powder) 148 gm NOW PRN MC RAD 03/30/20 13:30 04/02/20 13:17 Carvedilol (Coreg) 6.25 mg EVERY 12 HOURS ORAL 03/30/20 21:30 04/28/20 21:59 04/01/20 08:17 Dextrose (Dextrose 50%) 25 ml Q30M PRN IV Hypoglycemia 03/29/20 21:30 06/27/20 21:29 Dextrose (Dextrose 50%) 50 ml Q30M PRN IV Hypoglycemia 03/29/20 21:30 06/27/20 21:29 Divalproex Sodium (Depakote) 750 mg Q12HR ORAL 03/29/20 21:00 04/28/20 20:59 04/01/20 08:18 Duloxetine HCl (Cymbalta) 30 mg DAILY ORAL 03/30/20 09:00 06/28/20 08:59 04/01/20 08:16 Enalaprilat (Vasotec) 2.5 mg Q6H PRN IV sbp more than 160 03/29/20 18:00 04/28/20 17:59 Finasteride (Proscar) 5 mg DAILY ORAL 03/30/20 09:00 06/28/20 08:59 04/01/20 08:16 Insulin Aspart (NovoLOG) BEFORE MEALS AND HS SUBQ 03/29/20 22:00 06/27/20 21:59 03/30/20 06:01 Levothyroxine Sodium (Synthroid) 100 mcg Q24H ORAL 03/30/20 06:30 04/29/20 06:29 04/01/20 06:27 Memantine (Namenda) 10 mg Q12HR ORAL 03/29/20 21:00 04/28/20 20:59 04/01/20 08:17 Morphine Sulfate (Morphine Sulfate) 1 mg Q6H PRN IVP For Pain 03/31/20 00:00 04/07/20 00:00 03/31/20 05:09 Nitroglycerin (Ntg) 0.4 mg Q5M PRN SL Prn Chest Pain 03/29/20 18:00 04/28/20 17:59 Ondansetron HCl (Zofran) 4 mg Q6H PRN IVP Nausea & Vomiting 03/29/20 18:00 04/28/20 17:59 Pantoprazole (Protonix) 40 mg DAILY ORAL 03/30/20 09:00 04/29/20 08:59 04/01/20 08:17 Polyethylene Glycol (Miralax) 17 gm DAILYPRN PRN ORAL Constipation 03/29/20 18:00 04/28/20 17:59 Rivaroxaban (Xarelto) 10 mg DAILY ORAL 04/01/20 09:00 06/30/20 08:59 04/01/20 08:17 Tamsulosin HCl (Flomax) 0.4 mg DAILY ORAL 03/30/20 09:00 04/29/20 08:59 04/01/20 08:17 Temazepam (Restoril) 15 mg HSPRN PRN ORAL Insomnia 03/29/20 18:00 04/05/20 17:59 Timolol Maleate (timoloL maleate 0.5% Op Soln) 1 drop TWICE A DAY BOTH EYES 03/29/20 20:00 04/28/20 19:59 04/01/20 10:17 Allergies: Coded Allergies: ASPIRIN (Verified Allergy, Unknown, 03/29/20) ENOXAPARIN (Verified Allergy, Unknown, 03/29/20) HEPARIN (Verified Allergy, Unknown, 03/29/20) PEANUT (Verified Allergy, Unknown, 03/29/20) PENICILLINS (Verified Allergy, Unknown, 03/30/20) tolerated Ceftriaxone 03/29/20 Uncoded Allergies: SEAFOOD (Allergy, Unknown, 03/29/20) ROS Limited/Unobtainable: Yes Subjective 74 YO M admitted with fever and chills. Now UTI and presumed sepsis. Cover for Int Med-DR Tavera Objective Last Vital Signs Date Time Temp Pulse Resp B/P (MAP) Pulse Ox O2 Delivery O2 Flow Rate FiO2 04/01/20 12:00 98.4 67 20 153/81 (105) 98 04/01/20 09:00 Room Air Laboratory Tests Test 03/31/20 16:20 03/31/20 20:42 04/01/20 06:31 POC Whole Blood Glucose 130 MG/DL (74-106) H 112 MG/DL (74-106) H 109 MG/DL (74-106) H Microbiology Date/Time Source Procedure Growth Status 03/30/20 01:40 Indwelling Cath Urine Culture - Final NO GROWTH AFTER 48 HOURS Complete 03/29/20 17:46 Rectum - Final NO CARBAPENEM-RESISTANT ENTEROBACTERI... Complete 03/29/20 17:44 Rectum VRE Culture - Final NO VANCOMYCIN RESISTANT ENTEROCOCCUS ... Complete 03/29/20 17:44 Nasal Nares MRSA Culture - Final Staphylococcus Aureus - Mrsa Complete Intake and Output 03/31/20 04/01/20 19:00 07:00 Intake Total 1215 ml 360 ml Output Total 850 ml Balance 365 ml 360 ml Intake Oral 640 ml 360 ml IV Total 575 ml Output Urine Total 850 ml Objective Objective GENERAL: wake, more responsive, talking more. HEAD AND NECK: Pupils are equal and reactive to light. Anicteric. NECK: Supple. No JVD. LUNGS: Good air entry. No wheezing or rhonchi. Decreased air in bases. HEART: S1, S2. Distant heart sounds. No murmurs or gallops. ABDOMEN: Soft, nondistended, nontender. Morbidly obese. Bowel sounds present. EXTREMITIES: No cyanosis, clubbing, or edema. NEUROLOGIC: alert and oriented 3, CN 2-12 grossly intact, moving upper extremities, left lower extremity weaker than right side. RECTAL: Refused and deferred. GENITOURINARY: Refused and deferred. PSYCHIATRIC: Mood and affect intact. Assessment/Plan Assessment/Plan Assessment/Plan Assessment/Plan Assessment/Plan ASSESSMENT: 1. urinary tract infection=gram neg dana. 2. History of CVA. 3. Prior history of heart failure. 4. Major depression disorder. 5. Diabetic type 2. 6. BPH. 7. Bipolar disorder. 8. COPD. 9. Hyponatremia. 10. Dehydration. 11. The patient has a history of hypothyroidism. PLAN: In monitor unit, Transfer to Med /surg unit monitor laboratory as well as culture. Abx: Aztreonam F/U blood glucose level monitoring, Accu-Cheks. Dr. Frazier from Pulmonary Critical Care Dr. Kirk from Nephrology. DVT prophylaxis: Heparin subcu CODE STATUS: DNR. DC IVF. Await culture results Inf dis=Nakul Jolley MD Apr 01, 2020 15:49
[2020-04-01] MEDS: Miralax 17gm pkt ORAL PRN (15:59)
--- NOTE | 2020-04-01 15:59 | NUR ---
NURSE NOTES: Administered miralax due to patient did not move his bowel since 03/29/20. bowel sound is active and patient passes gas, denies nausea or vomiting.
[2020-04-01 16:00] VITALS: BP 146/77
--- NOTE | 2020-04-01 16:12 | Infectious Diseases Prog Note ---
Assessment/Plan Assessment: COVID19 neg x1 (03/29 rapid COVID PCR Neg) -CXR: no acute disease UTI -u/a wbc tnct, nit neg, leuk +3; ucx <10k GNR Afebrile Leukocytosis, SP Abd pain -CT abd/p: Limited assessment of the GI tract, due to lack of enteric contrast administration. Equivocal mild urinary bladder wall thickening, could in part be an artifact of under distention but cystitis possible. Correlate with clinical findings. Evidence of prior cholecystectomy. Borderline cardiomegaly with suggestion of mild pulmonary venous congestion. Incidental findings as noted, including bilateral gynecomastia, degenerative spondylosis Accelerated hypertension -CT head: Chronic and age-related changes. Negative for acute intracranial bleed or mass effect CVA HTN dysphagia R ankle OA COPD BPH hx of L5 vertebral body fracture hx of sacrum fracture seizure disorder CHF bipolar disorder hypothyroidism Dm2 Dementia contractures [place] resident([facility] [place] [place]) Plan: -Continue empiric Aztreonam #4/5 pending ucx --03/29 SP Ceftriaxone x1, Azithromycin x1 -f/u cx -Monitor CBC/CMP, temperatures Thank you for this consultation. Will continue to follow along with you. Discussed with RN. Subjective Allergies: Coded Allergies: ASPIRIN (Verified Allergy, Unknown, 03/29/20) ENOXAPARIN (Verified Allergy, Unknown, 03/29/20) HEPARIN (Verified Allergy, Unknown, 03/29/20) PEANUT (Verified Allergy, Unknown, 03/29/20) PENICILLINS (Verified Allergy, Unknown, 03/30/20) tolerated Ceftriaxone 03/29/20 Uncoded Allergies: SEAFOOD (Allergy, Unknown, 03/29/20) afebrile no leukocytosis Objective Last 24 Hour Vital Signs Date Time Temp Pulse Resp B/P (MAP) Pulse Ox O2 Delivery O2 Flow Rate FiO2 04/01/20 12:00 98.4 67 20 153/81 (105) 98 04/01/20 09:00 Room Air 04/01/20 08:17 70 157/81 04/01/20 08:00 97.5 70 18 157/81 (106) 98 04/01/20 04:00 97.8 68 18 134/82 (99) 96 04/01/20 00:00 98.7 75 20 147/87 (107) 97 03/31/20 21:00 Room Air 03/31/20 20:35 67 151/85 03/31/20 20:00 98.2 67 20 151/85 (107) 96 Height (Feet): 6 Height (Inches): 0.00 Weight (Pounds): 233 HEAD AND NECK: Pupils are equal and reactive to light. Anicteric. NECK: Supple. No JVD. LUNGS: Good air entry. No wheezing or rhonchi. Decreased air in bases. HEART: S1, S2. Distant heart sounds. No murmurs or gallops. ABDOMEN: Soft, nondistended, nontender. Morbidly obese. Bowel sounds present. EXTREMITIES: No cyanosis, clubbing, or edema. Microbiology Date/Time Source Procedure Growth Status 03/30/20 01:40 Indwelling Cath Urine Culture - Final NO GROWTH AFTER 48 HOURS Complete 03/29/20 17:46 Rectum - Final NO CARBAPENEM-RESISTANT ENTEROBACTERI... Complete 03/29/20 17:44 Rectum VRE Culture - Final NO VANCOMYCIN RESISTANT ENTEROCOCCUS ... Complete 03/29/20 17:44 Nasal Nares MRSA Culture - Final Staphylococcus Aureus - Mrsa Complete Laboratory Tests Test 03/31/20 16:20 03/31/20 20:42 04/01/20 06:31 POC Whole Blood Glucose 130 MG/DL (74-106) H 112 MG/DL (74-106) H 109 MG/DL (74-106) H Current Medications Medications (Trade) Dose Ordered Sig/Ayah Route PRN Reason Start Time Stop Time Status Last Admin Dose Admin Acetaminophen (Tylenol) 650 mg Q4H PRN ORAL FEVER 03/29/20 18:00 04/28/20 17:59 Albuterol/ Ipratropium (Albuterol/ Ipratropium) 3 ml Q4H PRN HHN Shortness of Breath 03/29/20 18:00 04/03/20 17:59 Aztreonam 1 gm/ Sodium Chloride 50 ml @ 100 mls/hr EVERY 8 HOURS IVPB 03/29/20 22:00 04/05/20 21:59 04/01/20 13:34 Barium Sulfate (Varibar Honey) 250 ml NOW PRN MC RAD 03/30/20 13:30 04/02/20 13:17 Barium Sulfate (Varibar [place]) 240 ml NOW PRN MC RAD 03/30/20 13:30 04/02/20 13:17 Barium Sulfate (Varibar Pudding) 230 ml NOW PRN RAD 03/30/20 13:30 04/02/20 13:17 Barium Sulfate (Varibar Thin Liquid powder) 148 gm NOW PRN RAD 03/30/20 13:30 04/02/20 13:17 Carvedilol (Coreg) 6.25 mg EVERY 12 HOURS ORAL 03/30/20 21:30 04/28/20 21:59 04/01/20 08:17 Dextrose (Dextrose 50%) 25 ml Q30M PRN IV Hypoglycemia 03/29/20 21:30 06/27/20 21:29 Dextrose (Dextrose 50%) 50 ml Q30M PRN IV Hypoglycemia 03/29/20 21:30 06/27/20 21:29 Divalproex Sodium (Depakote) 750 mg Q12HR ORAL 03/29/20 21:00 04/28/20 20:59 04/01/20 08:18 Duloxetine HCl (Cymbalta) 30 mg DAILY ORAL 03/30/20 09:00 06/28/20 08:59 04/01/20 08:16 Enalaprilat (Vasotec) 2.5 mg Q6H PRN IV sbp more than 160 03/29/20 18:00 04/28/20 17:59 Finasteride (Proscar) 5 mg DAILY ORAL 03/30/20 09:00 06/28/20 08:59 04/01/20 08:16 Insulin Aspart (NovoLOG) BEFORE MEALS AND HS SUBQ 03/29/20 22:00 06/27/20 21:59 03/30/20 06:01 Levothyroxine Sodium (Synthroid) 100 mcg Q24H ORAL 03/30/20 06:30 04/29/20 06:29 04/01/20 06:27 Memantine (Namenda) 10 mg Q12HR ORAL 03/29/20 21:00 04/28/20 20:59 04/01/20 08:17 Morphine Sulfate (Morphine Sulfate) 1 mg Q6H PRN IVP For Pain 03/31/20 00:00 04/07/20 00:00 03/31/20 05:09 Nitroglycerin (Ntg) 0.4 mg Q5M PRN SL Prn Chest Pain 03/29/20 18:00 04/28/20 17:59 Ondansetron HCl (Zofran) 4 mg Q6H PRN IVP Nausea & Vomiting 03/29/20 18:00 04/28/20 17:59 Pantoprazole (Protonix) 40 mg DAILY ORAL 03/30/20 09:00 04/29/20 08:59 04/01/20 08:17 Polyethylene Glycol (Miralax) 17 gm DAILYPRN PRN ORAL Constipation 03/29/20 18:00 04/28/20 17:59 04/01/20 15:59 Rivaroxaban (Xarelto) 10 mg DAILY ORAL 04/01/20 09:00 06/30/20 08:59 04/01/20 08:17 Tamsulosin HCl (Flomax) 0.4 mg DAILY ORAL 03/30/20 09:00 04/29/20 08:59 04/01/20 08:17 Temazepam (Restoril) 15 mg HSPRN PRN ORAL Insomnia 03/29/20 18:00 04/05/20 17:59 Timolol Maleate (timoloL maleate 0.5% Op Soln) 1 drop TWICE A DAY BOTH EYES 03/29/20 20:00 04/28/20 19:59 04/01/20 10:17 Riana Wong M.D. Apr 01, 2020 16:12
--- NOTE | 2020-04-01 19:04 | NUR ---
NURSE HAND-OFF: Important Events on Shift: given miralax for constipation, wound photo taken. Patient Status: stable Diet: CCHO medium, mech, soft finely chopped. Pending Orders: Pending Results/Labs: Pending MD notification: Latest Vital Signs: Temperature 97.3 , Pulse 86 , B/P 146 /77 , Respiratory Rate 20 , O2 SAT 97 , Room Air, O2 Flow Rate . Vital Sign Comment: Latest Valladares Fall Score: 50 Fall Risk: High Risk Safety Measures: Call light Within Reach, Bed Alarm Zone 1, Side Rails Side Rails x2, Bed position Low and Locked. Fall Precautions: Yellow Socks Yellow Gown Door Sign Patient Fall Education Report given to Lydia and endorsed plan of care.
--- NOTE | 2020-04-01 19:47 | NUR ---
NURSE NOTES: Patient in bed, awake and able to make needs known. On room air with no signs of distress or SOB. Side rails padded for seizure precautions. Arias in place and draining to gravity. IV is intact and patent. Bed locked and in lowest position. Call light in reach. Will continue plan of care.
[2020-04-01 20:00] VITALS: BP 153/84
[2020-04-02] VITALS: BP 148/88
[2020-04-02 04:00] VITALS: BP 162/94
[2020-04-02] MEDS: Aztreonam Inj 1 GM in NS 50 ML IVPB SCH ×3 (05:42→21:45)
[2020-04-02] MEDS: NovoLOG Insulin Flexpen SUBQ SCH ×4 (05:47→20:53)
--- NOTE | 2020-04-02 06:33 | NUR ---
NURSE NOTES: Patient's SBP elevated in the 160's. Patient only has Vasotec IVP PRN. Left message for Dr. Tavera for PO medication. Awaiting call back.
--- NOTE | 2020-04-02 06:47 | NUR ---
NURSE HAND-OFF: Important Events on Shift: HTN Patient Status: Stable Diet: CCHO Pending Orders: N/A Pending Results/Labs: BMP, CBC, Hep panel, Mag, Phos Pending MD notification: Dr. Tavera for PRN BP medication Latest Vital Signs: Temperature 97.0 , Pulse 67 , B/P 162 /94 , Respiratory Rate 18 , O2 SAT 95 , Room Air, O2 Flow Rate . Vital Sign Comment: N/A Latest Valladares Fall Score: 50 Fall Risk: High Risk Safety Measures: Call light Within Reach, Bed Alarm Zone 1, Side Rails Side Rails x2, Bed position Low and Locked. Fall Precautions: Yellow Socks Yellow Gown Door Sign Patient Fall Education Addendum: 04/02/20 at 0717 by SUSANA AGARWAL RN Report given to MONSTER Dawson
--- NOTE | 2020-04-02 07:35 | NUR ---
NURSE NOTES: Received patient in bed,awake, patient is having breakfast without any issues.Denies pain or discomfort. side rails padded for seizure precaution without seizure activity. Arias is intact, no sediment or blood noted. IV is intact, no s/s of infiltration.Bed is in lowest position and locked. Call light within reach.Will continue plan of care.
[2020-04-02 07:54] LABS: BASOPHILS % (AUTO) 0.8 % (0.0-2.0); EOSINOPHILS % (AUTO) 1.7 % (0.0-3.0); HEMATOCRIT 53.6 % (42.0-52.0); HEMOGLOBIN 17.5 G/DL (14.2-18.0); LYMPHOCYTES % (AUTO) 28.8 % (20.0-45.0); MEAN CORPUSCULAR VOLUME 92 FL (80-99); MONOCYTES % (AUTO) 8.4 % (1.0-10.0); NEUTROPHILS % (AUTO) 60.4 % (45.0-75.0); PLATELET COUNT 102 K/UL (150-450); RED BLOOD COUNT 5.84 M/UL (4.70-6.10); RED CELL DISTRIBUTION WIDTH 14.1 % (11.6-14.8); WHITE BLOOD COUNT 7.3 K/UL (4.8-10.8)
[2020-04-02 08:00] VITALS: BP 145/94
[2020-04-02 08:37] LABS: ANION GAP 7 mmol/L (5-15); BLOOD UREA NITROGEN 19 mg/dL (7-18); CARBON DIOXIDE 27 MMOL/L (21-32); CHLORIDE 104 MMOL/L (98-107); CREATININE 1.1 MG/DL (0.55-1.30); POTASSIUM 4.4 MMOL/L (3.5-5.1); SODIUM 138 MMOL/L (136-145)
[2020-04-02 08:43] LABS: ALANINE AMINOTRANSFERASE < 6 U/L (12-78)
[2020-04-02 08:44] LABS: ALBUMIN 2.8 G/DL (3.4-5.0); ALKALINE PHOSPHATASE 70 U/L (46-116); ASPARTATE AMINO TRANSFERASE 12 U/L (15-37); BILIRUBIN,DIRECT 0.1 MG/DL (0.0-0.3); BILIRUBIN,TOTAL 0.4 MG/DL (0.2-1.0); PHOSPHORUS 3.5 MG/DL (2.5-4.9)
[2020-04-02] MEDS: Memantine 10mg tab ORAL SCH ×2 (09:19→20:53)
[2020-04-02] MEDS: Xarelto 10mg tab ORAL SCH (09:20)
[2020-04-02] MEDS: Carvedilol 6.25mg Tab ORAL SCH ×2 (09:20→20:56)
[2020-04-02] MEDS: Tamsulosin 0.4mg cap ORAL SCH (09:20)
[2020-04-02] MEDS: DULoxetine 30mg cap ORAL SCH (09:20)
[2020-04-02] MEDS: timoloL maleate 0.5% Op Soln 2.5ml BOTH EYES SCH ×2 (09:23→17:41)
[2020-04-02] MEDS: Miralax 17gm pkt ORAL PRN (09:23)
--- NOTE | 2020-04-02 10:10 | Pulmonology Progress Note ---
Subjective ROS Limited/Unobtainable: No Allergies: Coded Allergies: ASPIRIN (Verified Allergy, Unknown, 03/29/20) ENOXAPARIN (Verified Allergy, Unknown, 03/29/20) HEPARIN (Verified Allergy, Unknown, 03/29/20) PEANUT (Verified Allergy, Unknown, 03/29/20) PENICILLINS (Verified Allergy, Unknown, 03/30/20) tolerated Ceftriaxone 03/29/20 Uncoded Allergies: SEAFOOD (Allergy, Unknown, 03/29/20) Subjective leuk resolved, no fevers BP better on RA pulse ox stable denies CP, SOB, dizziness Objective Last 24 Hour Vital Signs Date Time Temp Pulse Resp B/P (MAP) Pulse Ox O2 Delivery O2 Flow Rate FiO2 04/02/20 09:20 85 145/94 04/02/20 09:00 Room Air 04/02/20 08:00 97.3 85 18 145/94 (111) 95 04/02/20 04:00 97.0 67 18 162/94 (116) 95 04/02/20 00:00 97.0 72 18 148/88 (108) 95 04/01/20 21:14 69 153/84 04/01/20 21:00 Room Air 04/01/20 20:00 97.5 69 18 153/84 (107) 97 04/01/20 16:00 97.3 86 20 146/77 (100) 97 04/01/20 12:00 98.4 67 20 153/81 (105) 98 Intake and Output 04/01/20 04/02/20 19:00 07:00 Intake Total 530 ml Output Total 1300 ml 1600 ml Balance -770 ml -1600 ml Intake Oral 480 ml IV Total 50 ml Output Urine Total 1300 ml 1600 ml General Appearance: WD/WN, no acute distress, other - A/A/O x 4 bedridden male HEENT: normocephalic, atraumatic, anicteric, mucous membranes moist Respiratory: chest wall non-tender, lungs clear - with moderate air exchange , normal breath sounds Cardiovascular: normal peripheral pulses, normal rate Abdomen: normal bowel sounds, soft, non tender Genitourinary: normal external genitalia Extremities: no edema Neurologic: abnormal gait - bedridden , alert, oriented x 3, responsive Musculoskeletal: atrophy - BLE Laboratory Tests 04/01/20 16:08: POC Whole Blood Glucose 159H 04/02/20 06:25: White Blood Count 7.3, Red Blood Count 5.84, Hemoglobin 17.5, Hematocrit 53.6H, Mean Corpuscular Volume 92, Mean Corpuscular Hemoglobin 30.0, Mean Corpuscular Hemoglobin Concent 32.7, Red Cell Distribution Width 14.1, Platelet Count 102L, Mean Platelet Volume 6.7, Neutrophils (%) (Auto) 60.4, Lymphocytes (%) (Auto) 28.8, Monocytes (%) (Auto) 8.4, Eosinophils (%) (Auto) 1.7, Basophils (%) (Auto) 0.8, Sodium Level 138, Potassium Level 4.4, Chloride Level 104, Carbon Dioxide Level 27, Anion Gap 7, Blood Urea Nitrogen 19H, Creatinine 1.1, Estimat Glomerular Filtration Rate > 60, Glucose Level 104, Calcium Level 9.0, Phosphorus Level 3.5, Magnesium Level 2.0, Total Bilirubin 0.4, Direct Bilirubin 0.1, Aspartate Amino Transf (AST/SGOT) 12L, Alanine Aminotransferase (ALT/SGPT) < 6L, Alkaline Phosphatase 70, Total Protein 6.8, Albumin 2.8L Current Medications Medications (Trade) Dose Ordered Sig/Ayah Route PRN Reason Start Time Stop Time Status Last Admin Dose Admin Acetaminophen (Tylenol) 650 mg Q4H PRN ORAL FEVER 03/29/20 18:00 04/28/20 17:59 Albuterol/ Ipratropium (Albuterol/ Ipratropium) 3 ml Q4H PRN HHN Shortness of Breath 03/29/20 18:00 04/03/20 17:59 Aztreonam 1 gm/ Sodium Chloride 50 ml @ 100 mls/hr EVERY 8 HOURS IVPB 03/29/20 22:00 04/05/20 21:59 04/02/20 05:42 Barium Sulfate (Varibar Honey) 250 ml NOW PRN MC RAD 03/30/20 13:30 04/02/20 13:17 Barium Sulfate (Varibar [place]) 240 ml NOW PRN MC RAD 03/30/20 13:30 04/02/20 13:17 Barium Sulfate (Varibar Pudding) 230 ml NOW PRN MC RAD 03/30/20 13:30 04/02/20 13:17 Barium Sulfate (Varibar Thin Liquid powder) 148 gm NOW PRN MC RAD 03/30/20 13:30 04/02/20 13:17 Carvedilol (Coreg) 6.25 mg EVERY 12 HOURS ORAL 03/30/20 21:30 04/28/20 21:59 04/02/20 09:20 Dextrose (Dextrose 50%) 25 ml Q30M PRN IV Hypoglycemia 03/29/20 21:30 06/27/20 21:29 Dextrose (Dextrose 50%) 50 ml Q30M PRN IV Hypoglycemia 03/29/20 21:30 06/27/20 21:29 Divalproex Sodium (Depakote) 750 mg Q12HR ORAL 03/29/20 21:00 04/28/20 20:59 04/02/20 09:20 Duloxetine HCl (Cymbalta) 30 mg DAILY ORAL 03/30/20 09:00 06/28/20 08:59 04/02/20 09:20 Enalaprilat (Vasotec) 2.5 mg Q6H PRN IV sbp more than 160 03/29/20 18:00 04/28/20 17:59 Finasteride (Proscar) 5 mg DAILY ORAL 03/30/20 09:00 06/28/20 08:59 04/02/20 09:20 Insulin Aspart (NovoLOG) BEFORE MEALS AND HS SUBQ 03/29/20 22:00 06/27/20 21:59 04/01/20 16:35 Levothyroxine Sodium (Synthroid) 100 mcg Q24H ORAL 03/30/20 06:30 04/29/20 06:29 04/02/20 05:42 Memantine (Namenda) 10 mg Q12HR ORAL 03/29/20 21:00 04/28/20 20:59 04/02/20 09:19 Morphine Sulfate (Morphine Sulfate) 1 mg Q6H PRN IVP For Pain 03/31/20 00:00 04/07/20 00:00 03/31/20 05:09 Nitroglycerin (Ntg) 0.4 mg Q5M PRN SL Prn Chest Pain 03/29/20 18:00 04/28/20 17:59 Ondansetron HCl (Zofran) 4 mg Q6H PRN IVP Nausea & Vomiting 03/29/20 18:00 04/28/20 17:59 Pantoprazole (Protonix) 40 mg DAILY ORAL 03/30/20 09:00 04/29/20 08:59 04/02/20 09:20 Polyethylene Glycol (Miralax) 17 gm DAILYPRN PRN ORAL Constipation 03/29/20 18:00 04/28/20 17:59 04/02/20 09:23 Rivaroxaban (Xarelto) 10 mg DAILY ORAL 04/01/20 09:00 06/30/20 08:59 04/02/20 09:20 Tamsulosin HCl (Flomax) 0.4 mg DAILY ORAL 03/30/20 09:00 04/29/20 08:59 04/02/20 09:20 Temazepam (Restoril) 15 mg HSPRN PRN ORAL Insomnia 03/29/20 18:00 04/05/20 17:59 04/01/20 21:17 Timolol Maleate (timoloL maleate 0.5% Op Soln) 1 drop TWICE A DAY BOTH EYES 03/29/20 20:00 04/28/20 19:59 04/02/20 09:23 Assessment/Plan Assessment/Plan ASSESSMENT Sepsis Probable UTI Hypertension with initial hypertensive urgency Dehydration Hyponatremia History of CVA COPD Diabetes mellitus Hypothyroidism BPH Dementia History of CHF PLAN of CARE MS floor O2 prn to keep sat above 92 strict aspiration precaution CXR clear swallow eval noted diet texture as per ST recs with strict aspiration precaution on Xarelto low dose /probably for secondary prevention of CVA?, lipid panel stable check venous duplex BLE -> NGT Echo with pEF 55% monitor volumes BP regimen optimized , BP stable currently IVF avoid nephrotoxic monitor electrolytes , hypoNa resolved nephro follows continue Proscar and Flomax emp abx 03/30 UCX NGT, prior 03/29 UCX with < 10 K GNR remans afebrile, no leukocytosis probably dc abx ? - per ID recs CT head no acute IC pathology TSH WNL , continue current dose of levothyroxine BS management with SSI supportive care DNR with selective treatment case discussed and evaluated by supervising physician case discussed and evaluated by supervising physician Shelly Keenan NP Apr 02, 2020 10:10
[2020-04-02 12:00] VITALS: BP 155/77
--- NOTE | 2020-04-02 12:00 | Nephrology Progress Note ---
Assessment/Plan Problem List: (1) Electrolyte imbalance (2) Dehydration (3) Hypothyroidism (4) Uncontrolled hypertension Assessment Severe dehydration Hyponatremia Sepsis, UTI BPH Depression, bipolar disease Hypothyroidism Plan April 02: Labs reviewed. Renal parameters stable. Stable for discharge from renal standpoint of view. April 01: No labs drawn today. Stable from renal standpoint of view. Hydrate Monitor electrolyte renal parameters Adjust BP meds as needed Per orders Subjective ROS Limited/Unobtainable: No Constitutional: Reports: malaise Objective Objective Last 24 Hour Vital Signs Date Time Temp Pulse Resp B/P (MAP) Pulse Ox O2 Delivery O2 Flow Rate FiO2 04/02/20 09:20 85 145/94 04/02/20 09:00 Room Air 04/02/20 08:00 97.3 85 18 145/94 (111) 95 04/02/20 04:00 97.0 67 18 162/94 (116) 95 04/02/20 00:00 97.0 72 18 148/88 (108) 95 04/01/20 21:14 69 153/84 04/01/20 21:00 Room Air 04/01/20 20:00 97.5 69 18 153/84 (107) 97 04/01/20 16:00 97.3 86 20 146/77 (100) 97 04/01/20 12:00 98.4 67 20 153/81 (105) 98 Intake and Output 04/01/20 04/02/20 19:00 07:00 Intake Total 530 ml Output Total 1300 ml 1600 ml Balance -770 ml -1600 ml Intake Oral 480 ml IV Total 50 ml Output Urine Total 1300 ml 1600 ml Current Medications Medications (Trade) Dose Ordered Sig/Ayah Route PRN Reason Start Time Stop Time Status Last Admin Dose Admin Acetaminophen (Tylenol) 650 mg Q4H PRN ORAL FEVER 03/29/20 18:00 04/28/20 17:59 Albuterol/ Ipratropium (Albuterol/ Ipratropium) 3 ml Q4H PRN HHN Shortness of Breath 03/29/20 18:00 04/03/20 17:59 Aztreonam 1 gm/ Sodium Chloride 50 ml @ 100 mls/hr EVERY 8 HOURS IVPB 03/29/20 22:00 04/05/20 21:59 04/02/20 05:42 Barium Sulfate (Varibar Honey) 250 ml NOW PRN MC RAD 03/30/20 13:30 04/02/20 13:17 Barium Sulfate (Varibar [place]) 240 ml NOW PRN RAD 03/30/20 13:30 04/02/20 13:17 Barium Sulfate (Varibar Pudding) 230 ml NOW PRN RAD 03/30/20 13:30 04/02/20 13:17 Barium Sulfate (Varibar Thin Liquid powder) 148 gm NOW PRN RAD 03/30/20 13:30 04/02/20 13:17 Carvedilol (Coreg) 6.25 mg EVERY 12 HOURS ORAL 03/30/20 21:30 04/28/20 21:59 04/02/20 09:20 Dextrose (Dextrose 50%) 25 ml Q30M PRN IV Hypoglycemia 03/29/20 21:30 06/27/20 21:29 Dextrose (Dextrose 50%) 50 ml Q30M PRN IV Hypoglycemia 03/29/20 21:30 06/27/20 21:29 Divalproex Sodium (Depakote) 750 mg Q12HR ORAL 03/29/20 21:00 04/28/20 20:59 04/02/20 09:20 Duloxetine HCl (Cymbalta) 30 mg DAILY ORAL 03/30/20 09:00 06/28/20 08:59 04/02/20 09:20 Enalaprilat (Vasotec) 2.5 mg Q6H PRN IV sbp more than 160 03/29/20 18:00 04/28/20 17:59 Finasteride (Proscar) 5 mg DAILY ORAL 03/30/20 09:00 06/28/20 08:59 04/02/20 09:20 Insulin Aspart (NovoLOG) BEFORE MEALS AND HS SUBQ 03/29/20 22:00 06/27/20 21:59 04/02/20 11:42 Levothyroxine Sodium (Synthroid) 100 mcg Q24H ORAL 03/30/20 06:30 04/29/20 06:29 04/02/20 05:42 Memantine (Namenda) 10 mg Q12HR ORAL 03/29/20 21:00 04/28/20 20:59 04/02/20 09:19 Morphine Sulfate (Morphine Sulfate) 1 mg Q6H PRN IVP For Pain 03/31/20 00:00 04/07/20 00:00 03/31/20 05:09 Nitroglycerin (Ntg) 0.4 mg Q5M PRN SL Prn Chest Pain 03/29/20 18:00 04/28/20 17:59 Ondansetron HCl (Zofran) 4 mg Q6H PRN IVP Nausea & Vomiting 03/29/20 18:00 04/28/20 17:59 Pantoprazole (Protonix) 40 mg DAILY ORAL 03/30/20 09:00 04/29/20 08:59 04/02/20 09:20 Polyethylene Glycol (Miralax) 17 gm DAILYPRN PRN ORAL Constipation 03/29/20 18:00 04/28/20 17:59 04/02/20 09:23 Rivaroxaban (Xarelto) 10 mg DAILY ORAL 04/01/20 09:00 06/30/20 08:59 04/02/20 09:20 Tamsulosin HCl (Flomax) 0.4 mg DAILY ORAL 03/30/20 09:00 04/29/20 08:59 04/02/20 09:20 Temazepam (Restoril) 15 mg HSPRN PRN ORAL Insomnia 03/29/20 18:00 04/05/20 17:59 04/01/20 21:17 Timolol Maleate (timoloL maleate 0.5% Op Soln) 1 drop TWICE A DAY BOTH EYES 03/29/20 20:00 04/28/20 19:59 04/02/20 09:23 Laboratory Tests 04/01/20 16:08: POC Whole Blood Glucose 159H 04/02/20 06:25: White Blood Count 7.3, Red Blood Count 5.84, Hemoglobin 17.5, Hematocrit 53.6H, Mean Corpuscular Volume 92, Mean Corpuscular Hemoglobin 30.0, Mean Corpuscular Hemoglobin Concent 32.7, Red Cell Distribution Width 14.1, Platelet Count 102L, Mean Platelet Volume 6.7, Neutrophils (%) (Auto) 60.4, Lymphocytes (%) (Auto) 28.8, Monocytes (%) (Auto) 8.4, Eosinophils (%) (Auto) 1.7, Basophils (%) (Auto) 0.8, Sodium Level 138, Potassium Level 4.4, Chloride Level 104, Carbon Dioxide Level 27, Anion Gap 7, Blood Urea Nitrogen 19H, Creatinine 1.1, Estimat Glomerular Filtration Rate > 60, Glucose Level 104, Calcium Level 9.0, Phosphorus Level 3.5, Magnesium Level 2.0, Total Bilirubin 0.4, Direct Bilirubin 0.1, Aspartate Amino Transf (AST/SGOT) 12L, Alanine Aminotransferase (ALT/SGPT) < 6L, Alkaline Phosphatase 70, Total Protein 6.8, Albumin 2.8L 04/02/20 11:39: POC Whole Blood Glucose 159H Height (Feet): 6 Height (Inches): 0.00 Weight (Pounds): 233 General Appearance: no apparent distress Cardiovascular: normal rate Respiratory/Chest: decreased breath sounds Abdomen: soft Objective No change Montana Kirk MD Apr 02, 2020 11:59
--- NOTE | 2020-04-02 12:00 | NUR ---
NURSE NOTES: Previous IV is leaking,removed IV and reinserted IV on left forearm with G22.
--- NOTE | 2020-04-02 13:00 | NUR ---
NURSE NOTES: PLT is 102 K, no episodes of bleeding.per Dr. Triniadd ramirez to give xarelto
--- NOTE | 2020-04-02 14:55 | Internal Med Progress Note ---
Subjective Date of Service: Apr 02, 2020 Physician Name Nakul Abdi Attending Physician Jacob Tavera MD Current Medications Medications (Trade) Dose Ordered Sig/Ayah Route PRN Reason Start Time Stop Time Status Last Admin Dose Admin Acetaminophen (Tylenol) 650 mg Q4H PRN ORAL FEVER 03/29/20 18:00 04/28/20 17:59 Albuterol/ Ipratropium (Albuterol/ Ipratropium) 3 ml Q4H PRN HHN Shortness of Breath 03/29/20 18:00 04/03/20 17:59 Aztreonam 1 gm/ Sodium Chloride 50 ml @ 100 mls/hr EVERY 8 HOURS IVPB 03/29/20 22:00 04/05/20 21:59 04/02/20 13:23 Carvedilol (Coreg) 6.25 mg EVERY 12 HOURS ORAL 03/30/20 21:30 04/28/20 21:59 04/02/20 09:20 Dextrose (Dextrose 50%) 25 ml Q30M PRN IV Hypoglycemia 03/29/20 21:30 06/27/20 21:29 Dextrose (Dextrose 50%) 50 ml Q30M PRN IV Hypoglycemia 03/29/20 21:30 06/27/20 21:29 Divalproex Sodium (Depakote) 750 mg Q12HR ORAL 03/29/20 21:00 04/28/20 20:59 04/02/20 09:20 Duloxetine HCl (Cymbalta) 30 mg DAILY ORAL 03/30/20 09:00 06/28/20 08:59 04/02/20 09:20 Enalaprilat (Vasotec) 2.5 mg Q6H PRN IV sbp more than 160 03/29/20 18:00 04/28/20 17:59 Finasteride (Proscar) 5 mg DAILY ORAL 03/30/20 09:00 06/28/20 08:59 04/02/20 09:20 Insulin Aspart (NovoLOG) BEFORE MEALS AND HS SUBQ 03/29/20 22:00 06/27/20 21:59 04/02/20 11:42 Levothyroxine Sodium (Synthroid) 100 mcg Q24H ORAL 03/30/20 06:30 04/29/20 06:29 04/02/20 05:42 Memantine (Namenda) 10 mg Q12HR ORAL 03/29/20 21:00 04/28/20 20:59 04/02/20 09:19 Morphine Sulfate (Morphine Sulfate) 1 mg Q6H PRN IVP For Pain 03/31/20 00:00 04/07/20 00:00 03/31/20 05:09 Nitroglycerin (Ntg) 0.4 mg Q5M PRN SL Prn Chest Pain 03/29/20 18:00 04/28/20 17:59 Ondansetron HCl (Zofran) 4 mg Q6H PRN IVP Nausea & Vomiting 03/29/20 18:00 04/28/20 17:59 Pantoprazole (Protonix) 40 mg DAILY ORAL 03/30/20 09:00 04/29/20 08:59 04/02/20 09:20 Polyethylene Glycol (Miralax) 17 gm DAILYPRN PRN ORAL Constipation 03/29/20 18:00 04/28/20 17:59 04/02/20 09:23 Rivaroxaban (Xarelto) 10 mg DAILY ORAL 04/01/20 09:00 06/30/20 08:59 04/02/20 09:20 Tamsulosin HCl (Flomax) 0.4 mg DAILY ORAL 03/30/20 09:00 04/29/20 08:59 04/02/20 09:20 Temazepam (Restoril) 15 mg HSPRN PRN ORAL Insomnia 03/29/20 18:00 04/05/20 17:59 04/01/20 21:17 Timolol Maleate (timoloL maleate 0.5% Op Soln) 1 drop TWICE A DAY BOTH EYES 03/29/20 20:00 04/28/20 19:59 04/02/20 09:23 Allergies: Coded Allergies: ASPIRIN (Verified Allergy, Unknown, 03/29/20) ENOXAPARIN (Verified Allergy, Unknown, 03/29/20) HEPARIN (Verified Allergy, Unknown, 03/29/20) PEANUT (Verified Allergy, Unknown, 03/29/20) PENICILLINS (Verified Allergy, Unknown, 03/30/20) tolerated Ceftriaxone 03/29/20 Uncoded Allergies: SEAFOOD (Allergy, Unknown, 03/29/20) ROS Limited/Unobtainable: Yes Subjective 74 YO M admitted with fever and chills. Now UTI and presumed sepsis. Cover for Int Jamie-DR Tavera Objective Last Vital Signs Date Time Temp Pulse Resp B/P (MAP) Pulse Ox O2 Delivery O2 Flow Rate FiO2 04/02/20 12:00 97.7 66 20 155/77 (103) 98 04/02/20 10:30 Room Air Laboratory Tests Test 04/01/20 16:08 04/02/20 06:25 04/02/20 11:39 POC Whole Blood Glucose 159 MG/DL (74-106) H 159 MG/DL (74-106) H White Blood Count 7.3 K/UL (4.8-10.8) Red Blood Count 5.84 M/UL (4.70-6.10) Hemoglobin 17.5 G/DL (14.2-18.0) Hematocrit 53.6 % (42.0-52.0) H Mean Corpuscular Volume 92 FL (80-99) Mean Corpuscular Hemoglobin 30.0 PG (27.0-31.0) Mean Corpuscular Hemoglobin Concent 32.7 G/DL (32.0-36.0) Red Cell Distribution Width 14.1 % (11.6-14.8) Platelet Count 102 K/UL (150-450) L Mean Platelet Volume 6.7 FL (6.5-10.1) Neutrophils (%) (Auto) 60.4 % (45.0-75.0) Lymphocytes (%) (Auto) 28.8 % (20.0-45.0) Monocytes (%) (Auto) 8.4 % (1.0-10.0) Eosinophils (%) (Auto) 1.7 % (0.0-3.0) Basophils (%) (Auto) 0.8 % (0.0-2.0) Sodium Level 138 MMOL/L (136-145) Potassium Level 4.4 MMOL/L (3.5-5.1) Chloride Level 104 MMOL/L (98-107) Carbon Dioxide Level 27 MMOL/L (21-32) Anion Gap 7 mmol/L (5-15) Blood Urea Nitrogen 19 mg/dL (7-18) H Creatinine 1.1 MG/DL (0.55-1.30) Estimat Glomerular Filtration Rate > 60 mL/min (>60) Glucose Level 104 MG/DL (74-106) Calcium Level 9.0 MG/DL (8.5-10.1) Phosphorus Level 3.5 MG/DL (2.5-4.9) Magnesium Level 2.0 MG/DL (1.8-2.4) Total Bilirubin 0.4 MG/DL (0.2-1.0) Direct Bilirubin 0.1 MG/DL (0.0-0.3) Aspartate Amino Transf (AST/SGOT) 12 U/L (15-37) L Alanine Aminotransferase (ALT/SGPT) < 6 U/L (12-78) L Alkaline Phosphatase 70 U/L (46-116) Total Protein 6.8 G/DL (6.4-8.2) Albumin 2.8 G/DL (3.4-5.0) L Intake and Output 04/01/20 04/02/20 19:00 07:00 Intake Total 530 ml Output Total 1300 ml 1600 ml Balance -770 ml -1600 ml Intake Oral 480 ml IV Total 50 ml Output Urine Total 1300 ml 1600 ml Objective Objective GENERAL: wake, more responsive, talking more. HEAD AND NECK: Pupils are equal and reactive to light. Anicteric. NECK: Supple. No JVD. LUNGS: Good air entry. No wheezing or rhonchi. Decreased air in bases. HEART: S1, S2. Distant heart sounds. No murmurs or gallops. ABDOMEN: Soft, nondistended, nontender. Morbidly obese. Bowel sounds present. EXTREMITIES: No cyanosis, clubbing, or edema. NEUROLOGIC: alert and oriented 3, CN 2-12 grossly intact, moving upper extremities, left lower extremity weaker than right side. RECTAL: Refused and deferred. GENITOURINARY: Refused and deferred. PSYCHIATRIC: Mood and affect intact. Assessment/Plan Assessment/Plan Assessment/Plan Assessment/Plan Assessment/Plan ASSESSMENT: 1. urinary tract infection=gram neg dana. 2. History of CVA. 3. Prior history of heart failure. 4. Major depression disorder. 5. Diabetic type 2. 6. BPH. 7. Bipolar disorder. 8. COPD. 9. Hyponatremia. 10. Dehydration. 11. The patient has a history of hypothyroidism. PLAN: Med /surg unit Abx: Aztreonam Accu-Cheks. Dr. Frazier from Pulmonary Critical Care Dr. Kirk from Nephrology. DVT prophylaxis: Xarelto CODE STATUS: DNR. DC IVF. Await culture results Inf dis=Nakul Jolley MD Apr 02, 2020 14:55
--- NOTE | 2020-04-02 15:10 | Cardiology Report ---
APPROVED REPORT EKG Measurement Heart [id number] <Conclusion> Sinus rhythm with 1st degree AV block with premature ventricular complexes or fusion complexes Possible Left atrial enlargement Left anterior fascicular block Left ventricular hypertrophy Cannot rule out Septal infarct, age undetermined Abnormal ECG
[2020-04-02 16:00] VITALS: BP 142/99
--- NOTE | 2020-04-02 18:21 | NUR ---
NURSE NOTES: Re-positioned patient Q2hr during shift, wound dressing was changed earlier when patient had bowel movement. Dressing is intact. No new wound noted. IV is intact. Heels are floated on pillow to off the load. Patient is clean and dry.
--- NOTE | 2020-04-02 19:10 | NUR ---
NURSE HAND-OFF: Important Events on Shift: 1 BM Patient Status: stable Diet: CCHO medium, mech, soft finely chopped. Pending Orders: Pending Results/Labs: Pending MD notification: Latest Vital Signs: Temperature 98.3 , Pulse 86 , B/P 142 /99 , Respiratory Rate 20 , O2 SAT 98 , Room Air, O2 Flow Rate . Vital Sign Comment: Latest Valladares Fall Score: 50 Fall Risk: High Risk Safety Measures: Call light Within Reach, Bed Alarm Zone 1, Side Rails Side Rails x2, Bed position Low and Locked. Fall Precautions: Yellow Socks Yellow Gown Door Sign Patient Fall Education Report given to Lydia and endorsed plan of care.
[2020-04-02 20:00] VITALS: BP 160/79
[2020-04-03 04:00] VITALS: BP 176/81
[2020-04-03] MEDS: HydrALAZINE 50mg tab ORAL PRN ×3 (05:00→17:57)
[2020-04-03] MEDS: NovoLOG Insulin Flexpen SUBQ SCH ×4 (06:11→21:06)
[2020-04-03 07:18] LABS: BASOPHILS % (AUTO) 0.6 % (0.0-2.0); EOSINOPHILS % (AUTO) 2.4 % (0.0-3.0); HEMATOCRIT 49.9 % (42.0-52.0); HEMOGLOBIN 16.8 G/DL (14.2-18.0); LYMPHOCYTES % (AUTO) 25.2 % (20.0-45.0); MEAN CORPUSCULAR VOLUME 91 FL (80-99); MONOCYTES % (AUTO) 7.1 % (1.0-10.0); NEUTROPHILS % (AUTO) 64.8 % (45.0-75.0); PLATELET COUNT 135 K/UL (150-450); RED BLOOD COUNT 5.48 M/UL (4.70-6.10); RED CELL DISTRIBUTION WIDTH 13.7 % (11.6-14.8); WHITE BLOOD COUNT 8.4 K/UL (4.8-10.8)
--- NOTE | 2020-04-03 07:42 | NUR ---
NURSE HAND-OFF: Important Events on Shift: No events Patient Status: Stable Diet: CCHO med Pending Orders: N/A Pending Results/Labs: BMP, CBC Pending MD notification: N/A Latest Vital Signs: Temperature 97.0 , Pulse 73 , B/P 176 /81 , Respiratory Rate 20 , O2 SAT 96 , Room Air, O2 Flow Rate . Vital Sign Comment: Latest Valladares Fall Score: 50 Fall Risk: High Risk Safety Measures: Call light Within Reach, Bed Alarm Zone 1, Side Rails Side Rails x2, Bed position Low and Locked. Fall Precautions: Yellow Socks Yellow Gown Door Sign Patient Fall Education Report given to MONSTER Hogan
[2020-04-03 07:51] LABS: ANION GAP 6 mmol/L (5-15); BLOOD UREA NITROGEN 11 mg/dL (7-18); CALCIUM 8.7 MG/DL (8.5-10.1); CARBON DIOXIDE 28 MMOL/L (21-32); CHLORIDE 105 MMOL/L (98-107); POTASSIUM 4.1 MMOL/L (3.5-5.1); SODIUM 139 MMOL/L (136-145)
--- NOTE | 2020-04-03 07:52 | NUR ---
NURSE NOTES: Received report from MONSTER Freeman. Patient seen in bed, AAOx4, bed bound. On room air with no signs of distress or SOB. Side rails padded for seizure precautions. Arias in place, anchored and draining well to gravity. IV is intact and patent. Bed locked and in lowest position. Call light in reach. Will continue plan of care.
[2020-04-03 08:00] VITALS: BP 152/89
[2020-04-03] MEDS: timoloL maleate 0.5% Op Soln 2.5ml BOTH EYES SCH ×2 (09:07→17:57)
[2020-04-03] MEDS: Tamsulosin 0.4mg cap ORAL SCH (09:08)
[2020-04-03] MEDS: DULoxetine 30mg cap ORAL SCH (09:08)
[2020-04-03] MEDS: Xarelto 10mg tab ORAL SCH (09:08)
[2020-04-03] MEDS: Memantine 10mg tab ORAL SCH ×2 (09:08→21:03)
[2020-04-03] MEDS: Carvedilol 6.25mg Tab ORAL SCH (09:08)
--- NOTE | 2020-04-03 10:06 | Cardiology Report ---
APPROVED REPORT EXAM: Two-dimensional and M-mode echocardiogram with Doppler and color Doppler. INDICATION LV FUNCTION M-Mode DIMENSIONS IVSd1.6 (0.7-1.1cm)Left Atrium (MM)3.8 (1.6-4.0cm) LVDd4.1 (3.5-5.6cm)Aortic Root3.8 (2.0-3.7cm) PWd1.1 (0.7-1.1cm)Aortic Cusp Exc.1.5 (1.5-2.0cm) IVSs1.3 cm LVDs2.9 (2.5-4.0cm) PWs1.5 cm Other Information Quality : Limited <Conclusion> Technically limited &difficult study due to poor acoustical windows and pts shaking, all images obtained from apical views. Normal left ventricular chamber size, systolic function and wall motion to extent visualized. Left ventricular ejection fraction estimated to be grossly 55 %. No evidence of left ventricular hypertrophy. No evidence of pericardial effusion. All other cardiac chamber sizes are within normal limits. Calcification of aortic valve with adequate cusp excursion. Thickened mitral valve leaflets with normal excursion. Mitral annulus and aortic root calcification. Pulmonic valve not well visualized. Normal tricuspid valve structure. No aortic regurgitation. Trace mitral regurgitation. Subcostal views not obtaibnle.
[2020-04-03] MEDS ORDERED: METFORMIN HCL1000 M1 ORAL (10:21)
[2020-04-03] MEDS ORDERED: DOCUSATE SODIU250 MG ORAL (10:21)
[2020-04-03] MEDS ORDERED: MULTI-VITAMIN1 EACH PO (10:35)
--- NOTE | 2020-04-03 11:35 | Pulmonology Progress Note ---
Subjective ROS Limited/Unobtainable: No Allergies: Coded Allergies: ASPIRIN (Verified Allergy, Unknown, 03/29/20) ENOXAPARIN (Verified Allergy, Unknown, 03/29/20) HEPARIN (Verified Allergy, Unknown, 03/29/20) PEANUT (Verified Allergy, Unknown, 03/29/20) PENICILLINS (Verified Allergy, Unknown, 03/30/20) tolerated Ceftriaxone 03/29/20 Uncoded Allergies: SEAFOOD (Allergy, Unknown, 03/29/20) Objective Last 24 Hour Vital Signs Date Time Temp Pulse Resp B/P (MAP) Pulse Ox O2 Delivery O2 Flow Rate FiO2 04/03/20 11:31 166/109 04/03/20 09:08 90 152/89 04/03/20 09:00 Room Air 04/03/20 08:00 97.2 90 18 152/89 (110) 96 04/03/20 05:00 176/81 04/03/20 04:00 97.0 73 20 176/81 (112) 96 04/02/20 20:56 64 160/79 04/02/20 20:35 Room Air 04/02/20 20:00 97.9 64 20 160/79 (106) 97 04/02/20 16:00 98.3 86 20 142/99 (113) 98 04/02/20 12:00 97.7 66 20 155/77 (103) 98 Intake and Output 04/02/20 04/03/20 19:00 07:00 Intake Total 960 ml 600 ml Output Total 600 ml 1500 ml Balance 360 ml -900 ml Intake Oral 960 ml 600 ml Output Urine Total 600 ml 1500 ml # Bowel Movements 2 1 General Appearance: WD/WN, no acute distress, other - A/A/O x 4 bedridden male HEENT: normocephalic, atraumatic, anicteric, mucous membranes moist Respiratory: chest wall non-tender, lungs clear - with moderate air exchange , normal breath sounds Cardiovascular: normal peripheral pulses, normal rate Abdomen: normal bowel sounds, soft, non tender Genitourinary: normal external genitalia Extremities: no edema Neurologic: abnormal gait - bedridden , alert, oriented x 3, responsive Musculoskeletal: atrophy - BLE Laboratory Tests 04/02/20 11:39: POC Whole Blood Glucose 159H 04/02/20 16:46: POC Whole Blood Glucose 97 04/02/20 20:50: POC Whole Blood Glucose [Pending] 04/03/20 06:10: POC Whole Blood Glucose [Pending] 04/03/20 06:35: White Blood Count 8.4, Red Blood Count 5.48, Hemoglobin 16.8, Hematocrit 49.9, Mean Corpuscular Volume 91, Mean Corpuscular Hemoglobin 30.7, Mean Corpuscular Hemoglobin Concent 33.7, Red Cell Distribution Width 13.7, Platelet Count 135L, Mean Platelet Volume 7.3, Neutrophils (%) (Auto) 64.8, Lymphocytes (%) (Auto) 25.2, Monocytes (%) (Auto) 7.1, Eosinophils (%) (Auto) 2.4, Basophils (%) (Auto) 0.6, Sodium Level 139, Potassium Level 4.1, Chloride Level 105, Carbon Dioxide Level 28, Anion Gap 6, Blood Urea Nitrogen 11, Creatinine 1.0, Estimat Glomerular Filtration Rate > 60, Glucose Level 121H, Calcium Level 8.7 Current Medications Medications (Trade) Dose Ordered Sig/Ayah Route PRN Reason Start Time Stop Time Status Last Admin Dose Admin Acetaminophen (Tylenol) 650 mg Q4H PRN ORAL FEVER 03/29/20 18:00 04/28/20 17:59 Albuterol/ Ipratropium (Albuterol/ Ipratropium) 3 ml Q4H PRN HHN Shortness of Breath 03/29/20 18:00 04/03/20 17:59 Carvedilol (Coreg) 6.25 mg EVERY 12 HOURS ORAL 03/30/20 21:30 04/28/20 21:59 04/03/20 09:08 Dextrose (Dextrose 50%) 25 ml Q30M PRN IV Hypoglycemia 03/29/20 21:30 06/27/20 21:29 Dextrose (Dextrose 50%) 50 ml Q30M PRN IV Hypoglycemia 03/29/20 21:30 06/27/20 21:29 Divalproex Sodium (Depakote) 750 mg Q12HR ORAL 03/29/20 21:00 04/28/20 20:59 04/03/20 09:07 Duloxetine HCl (Cymbalta) 30 mg DAILY ORAL 03/30/20 09:00 06/28/20 08:59 04/03/20 09:08 Enalaprilat (Vasotec) 2.5 mg Q6H PRN IV sbp more than 160 03/29/20 18:00 04/28/20 17:59 Finasteride (Proscar) 5 mg DAILY ORAL 03/30/20 09:00 06/28/20 08:59 04/03/20 09:08 Hydralazine HCl (Apresoline) 50 mg Q6H PRN ORAL For High Blood Pressure 04/02/20 18:15 07/01/20 18:14 04/03/20 11:31 Insulin Aspart (NovoLOG) BEFORE MEALS AND HS SUBQ 03/29/20 22:00 06/27/20 21:59 04/02/20 11:42 Levothyroxine Sodium (Synthroid) 100 mcg Q24H ORAL 03/30/20 06:30 04/29/20 06:29 04/03/20 06:11 Memantine (Namenda) 10 mg Q12HR ORAL 03/29/20 21:00 04/28/20 20:59 04/03/20 09:08 Morphine Sulfate (Morphine Sulfate) 1 mg Q6H PRN IVP For Pain 03/31/20 00:00 04/07/20 00:00 03/31/20 05:09 Nitroglycerin (Ntg) 0.4 mg Q5M PRN SL Prn Chest Pain 03/29/20 18:00 04/28/20 17:59 Ondansetron HCl (Zofran) 4 mg Q6H PRN IVP Nausea & Vomiting 03/29/20 18:00 04/28/20 17:59 Pantoprazole (Protonix) 40 mg DAILY ORAL 03/30/20 09:00 04/29/20 08:59 04/03/20 09:08 Polyethylene Glycol (Miralax) 17 gm DAILYPRN PRN ORAL Constipation 03/29/20 18:00 04/28/20 17:59 04/02/20 09:23 Rivaroxaban (Xarelto) 10 mg DAILY ORAL 04/01/20 09:00 06/30/20 08:59 04/03/20 09:08 Tamsulosin HCl (Flomax) 0.4 mg DAILY ORAL 03/30/20 09:00 04/29/20 08:59 04/03/20 09:08 Temazepam (Restoril) 15 mg HSPRN PRN ORAL Insomnia 03/29/20 18:00 04/05/20 17:59 04/02/20 20:53 Timolol Maleate (timoloL maleate 0.5% Op Soln) 1 drop TWICE A DAY BOTH EYES 03/29/20 20:00 04/28/20 19:59 04/03/20 09:07 Assessment/Plan Problems: (1) UTI (urinary tract infection) (2) Episode of generalized weakness (3) Uncontrolled hypertension (4) At high risk for aspiration (5) Seizure disorder (6) Hypothyroidism (7) Depression (8) Alzheimer's dementia (9) Diabetes mellitus Assessment/Plan Mental status improved, will try to feed the patient nice culture, all reviewed IV abx, on Aztreonam adjust BP meds check electrolytes, wnl sliding scale and diabetic diet dvt prophylaxis dvt prophylaxis. [facility], All medications and treatment were reviewed Gregory Frazier MD Apr 03, 2020 11:35
[2020-04-03] MEDS ORDERED: COREG6.25 MG ORAL (11:38)
[2020-04-03] MEDS ORDERED: XARELTO10 MG ORAL (11:38)
[2020-04-03 12:00] VITALS: BP 150/73
--- NOTE | 2020-04-03 12:13 | Nephrology Progress Note ---
Assessment/Plan Problem List: (1) Electrolyte imbalance (2) Dehydration (3) Hypothyroidism (4) Uncontrolled hypertension Assessment Severe dehydration Hyponatremia Sepsis, UTI BPH Depression, bipolar disease Hypothyroidism Plan April 03: Labs reviewed. Renal parameters stable. April 02: Labs reviewed. Renal parameters stable. Stable for discharge from renal standpoint of view. April 01: No labs drawn today. Stable from renal standpoint of view. Hydrate Monitor electrolyte renal parameters Adjust BP meds as needed Per orders Subjective ROS Limited/Unobtainable: No Constitutional: Reports: malaise Objective Objective Last 24 Hour Vital Signs Date Time Temp Pulse Resp B/P (MAP) Pulse Ox O2 Delivery O2 Flow Rate FiO2 04/03/20 11:31 166/109 04/03/20 09:08 90 152/89 04/03/20 09:00 Room Air 04/03/20 08:00 97.2 90 18 152/89 (110) 96 04/03/20 05:00 176/81 04/03/20 04:00 97.0 73 20 176/81 (112) 96 04/02/20 20:56 64 160/79 04/02/20 20:35 Room Air 04/02/20 20:00 97.9 64 20 160/79 (106) 97 04/02/20 16:00 98.3 86 20 142/99 (113) 98 Intake and Output 04/02/20 04/03/20 19:00 07:00 Intake Total 960 ml 600 ml Output Total 600 ml 1500 ml Balance 360 ml -900 ml Intake Oral 960 ml 600 ml Output Urine Total 600 ml 1500 ml # Bowel Movements 2 1 Laboratory Tests 04/02/20 16:46: POC Whole Blood Glucose 97 04/02/20 20:50: POC Whole Blood Glucose [Pending] 04/03/20 06:10: POC Whole Blood Glucose [Pending] 04/03/20 06:35: White Blood Count 8.4, Red Blood Count 5.48, Hemoglobin 16.8, Hematocrit 49.9, Mean Corpuscular Volume 91, Mean Corpuscular Hemoglobin 30.7, Mean Corpuscular Hemoglobin Concent 33.7, Red Cell Distribution Width 13.7, Platelet Count 135L, Mean Platelet Volume 7.3, Neutrophils (%) (Auto) 64.8, Lymphocytes (%) (Auto) 25.2, Monocytes (%) (Auto) 7.1, Eosinophils (%) (Auto) 2.4, Basophils (%) (Auto) 0.6, Sodium Level 139, Potassium Level 4.1, Chloride Level 105, Carbon Dioxide Level 28, Anion Gap 6, Blood Urea Nitrogen 11, Creatinine 1.0, Estimat Glomerular Filtration Rate > 60, Glucose Level 121H, Calcium Level 8.7 Height (Feet): 6 Height (Inches): 0.00 Weight (Pounds): 233 General Appearance: no apparent distress Objective No change Montana Kirk MD Apr 03, 2020 12:13
--- NOTE | 2020-04-03 13:35 | NUR ---
*-*DISCHARGE PLANNING*-* PATIENT HAS BEEN REFERRED BACK TO: [facility] P: [phone]
--- NOTE | 2020-04-03 15:02 | Infectious Diseases Prog Note ---
Assessment/Plan Assessment: COVID19 neg x1 (03/29 rapid COVID PCR Neg) -CXR: no acute disease UTI -u/a wbc tnct, nit neg, leuk +3; ucx <10k GNR Afebrile Leukocytosis, SP -Bcx NTD Abd pain -CT abd/p: Limited assessment of the GI tract, due to lack of enteric contrast administration. Equivocal mild urinary bladder wall thickening, could in part be an artifact of under distention but cystitis possible. Correlate with clinical findings. Evidence of prior cholecystectomy. Borderline cardiomegaly with suggestion of mild pulmonary venous congestion. Incidental findings as noted, including bilateral gynecomastia, degenerative spondylosis Accelerated hypertension -CT head: Chronic and age-related changes. Negative for acute intracranial bleed or mass effect CVA HTN dysphagia R ankle OA COPD BPH hx of L5 vertebral body fracture hx of sacrum fracture seizure disorder CHF bipolar disorder hypothyroidism Dm2 Dementia contractures MD resident([facility]) Plan: -Continue to monitor off abx --04/02 SP Aztreonam #5 --03/29 SP Ceftriaxone x1, Azithromycin x1 -f/u cx -Monitor CBC/CMP, temperatures Thank you for this consultation. Will continue to follow along with you. Discussed with RN. Subjective Allergies: Coded Allergies: ASPIRIN (Verified Allergy, Unknown, 03/29/20) ENOXAPARIN (Verified Allergy, Unknown, 03/29/20) HEPARIN (Verified Allergy, Unknown, 03/29/20) PEANUT (Verified Allergy, Unknown, 03/29/20) PENICILLINS (Verified Allergy, Unknown, 03/30/20) tolerated Ceftriaxone 03/29/20 Uncoded Allergies: SEAFOOD (Allergy, Unknown, 03/29/20) afebrile no leukocytosis Bcx NTD now off abx Objective Last 24 Hour Vital Signs Date Time Temp Pulse Resp B/P (MAP) Pulse Ox O2 Delivery O2 Flow Rate FiO2 04/03/20 12:00 97.7 79 18 150/73 (98) 96 04/03/20 11:31 166/109 04/03/20 09:08 90 152/89 04/03/20 09:00 Room Air 04/03/20 08:00 97.2 90 18 152/89 (110) 96 04/03/20 05:00 176/81 04/03/20 04:00 97.0 73 20 176/81 (112) 96 04/02/20 20:56 64 160/79 04/02/20 20:35 Room Air 04/02/20 20:00 97.9 64 20 160/79 (106) 97 04/02/20 16:00 98.3 86 20 142/99 (113) 98 Height (Feet): 6 Height (Inches): 0.00 Weight (Pounds): 233 HEAD AND NECK: Pupils are equal and reactive to light. Anicteric. NECK: Supple. No JVD. LUNGS: Good air entry. No wheezing or rhonchi. Decreased air in bases. HEART: S1, S2. Distant heart sounds. No murmurs or gallops. ABDOMEN: Soft, nondistended, nontender. Morbidly obese. Bowel sounds present. EXTREMITIES: No cyanosis, clubbing, or edema. Laboratory Tests Test 04/02/20 16:46 04/02/20 20:50 04/03/20 06:10 04/03/20 06:35 POC Whole Blood Glucose 97 MG/DL (74-106) Pending Pending White Blood Count 8.4 K/UL (4.8-10.8) Red Blood Count 5.48 M/UL (4.70-6.10) Hemoglobin 16.8 G/DL (14.2-18.0) Hematocrit 49.9 % (42.0-52.0) Mean Corpuscular Volume 91 FL (80-99) Mean Corpuscular Hemoglobin 30.7 PG (27.0-31.0) Mean Corpuscular Hemoglobin Concent 33.7 G/DL (32.0-36.0) Red Cell Distribution Width 13.7 % (11.6-14.8) Platelet Count 135 K/UL (150-450) L Mean Platelet Volume 7.3 FL (6.5-10.1) Neutrophils (%) (Auto) 64.8 % (45.0-75.0) Lymphocytes (%) (Auto) 25.2 % (20.0-45.0) Monocytes (%) (Auto) 7.1 % (1.0-10.0) Eosinophils (%) (Auto) 2.4 % (0.0-3.0) Basophils (%) (Auto) 0.6 % (0.0-2.0) Sodium Level 139 MMOL/L (136-145) Potassium Level 4.1 MMOL/L (3.5-5.1) Chloride Level 105 MMOL/L (98-107) Carbon Dioxide Level 28 MMOL/L (21-32) Anion Gap 6 mmol/L (5-15) Blood Urea Nitrogen 11 mg/dL (7-18) Creatinine 1.0 MG/DL (0.55-1.30) Estimat Glomerular Filtration Rate > 60 mL/min (>60) Glucose Level 121 MG/DL (74-106) H Calcium Level 8.7 MG/DL (8.5-10.1) Current Medications Medications (Trade) Dose Ordered Sig/Ayah Route PRN Reason Start Time Stop Time Status Last Admin Dose Admin Acetaminophen (Tylenol) 650 mg Q4H PRN ORAL FEVER 03/29/20 18:00 04/28/20 17:59 Albuterol/ Ipratropium (Albuterol/ Ipratropium) 3 ml Q4H PRN HHN Shortness of Breath 03/29/20 18:00 04/03/20 17:59 Carvedilol (Coreg) 6.25 mg EVERY 12 HOURS ORAL 03/30/20 21:30 04/28/20 21:59 04/03/20 09:08 Dextrose (Dextrose 50%) 25 ml Q30M PRN IV Hypoglycemia 03/29/20 21:30 06/27/20 21:29 Dextrose (Dextrose 50%) 50 ml Q30M PRN IV Hypoglycemia 03/29/20 21:30 06/27/20 21:29 Divalproex Sodium (Depakote) 750 mg Q12HR ORAL 03/29/20 21:00 04/28/20 20:59 04/03/20 09:07 Duloxetine HCl (Cymbalta) 30 mg DAILY ORAL 03/30/20 09:00 06/28/20 08:59 04/03/20 09:08 Enalaprilat (Vasotec) 2.5 mg Q6H PRN IV sbp more than 160 03/29/20 18:00 04/28/20 17:59 Finasteride (Proscar) 5 mg DAILY ORAL 03/30/20 09:00 06/28/20 08:59 04/03/20 09:08 Hydralazine HCl (Apresoline) 50 mg Q6H PRN ORAL For High Blood Pressure 04/02/20 18:15 07/01/20 18:14 04/03/20 11:31 Insulin Aspart (NovoLOG) BEFORE MEALS AND HS SUBQ 03/29/20 22:00 06/27/20 21:59 04/02/20 11:42 Levothyroxine Sodium (Synthroid) 100 mcg Q24H ORAL 03/30/20 06:30 04/29/20 06:29 04/03/20 06:11 Memantine (Namenda) 10 mg Q12HR ORAL 03/29/20 21:00 04/28/20 20:59 04/03/20 09:08 Morphine Sulfate (Morphine Sulfate) 1 mg Q6H PRN IVP For Pain 03/31/20 00:00 04/07/20 00:00 03/31/20 05:09 Nitroglycerin (Ntg) 0.4 mg Q5M PRN SL Prn Chest Pain 03/29/20 18:00 04/28/20 17:59 Ondansetron HCl (Zofran) 4 mg Q6H PRN IVP Nausea & Vomiting 03/29/20 18:00 04/28/20 17:59 Pantoprazole (Protonix) 40 mg DAILY ORAL 03/30/20 09:00 04/29/20 08:59 04/03/20 09:08 Polyethylene Glycol (Miralax) 17 gm DAILYPRN PRN ORAL Constipation 03/29/20 18:00 04/28/20 17:59 04/02/20 09:23 Rivaroxaban (Xarelto) 10 mg DAILY ORAL 04/01/20 09:00 06/30/20 08:59 04/03/20 09:08 Tamsulosin HCl (Flomax) 0.4 mg DAILY ORAL 03/30/20 09:00 04/29/20 08:59 04/03/20 09:08 Temazepam (Restoril) 15 mg HSPRN PRN ORAL Insomnia 03/29/20 18:00 04/05/20 17:59 04/02/20 20:53 Timolol Maleate (timoloL maleate 0.5% Op Soln) 1 drop TWICE A DAY BOTH EYES 03/29/20 20:00 04/28/20 19:59 04/03/20 09:07 Riana Wong M.D. Apr 03, 2020 15:01
--- NOTE | 2020-04-03 15:09 | NUR ---
*-*DISCHARGE PLANNED*-* PATIENT HAS BEEN ACCEPTED AND WILL BE DISCHARGED BACK TO: [facility] P: [phone] FOR NURSE TO NURSE REPORT ROOM#18.[facility] SET FOR 4:30PM S/W TA [id number]. S/W PATIENTS SISTER, LIZZ SLAUGHTER, WHO IS IN AGREEMENT WITH DISCHARGE PLAN.
[2020-04-03 16:00] VITALS: BP 161/94
--- NOTE | 2020-04-03 17:04 | NUR ---
NURSE NOTES: RN called [facility] ([phone]) multiple times to give report for patient. No answer. RN has been trying for an hour to give report and still no answer
--- NOTE | 2020-04-03 17:13 | NUR ---
NURSE NOTES: RN called facility and spoke with MONSTER King. RN endorsed that patient is AAox4, able to make needs known, bed bound. Patient is on room air with no SOB. Patient will be discharged with patel, IV and arm band will be removed once ambulance personnel arrives. RN endorsed that patient has sacral and bilateral heel skin issues. receiving nurse is familiar with patient due to him being a past resident. RN printed packet and will give to ambulance personnel. RN left call back number for receiving nurse for any further questions
--- NOTE | 2020-04-03 18:51 | NUR ---
NURSE NOTES: RN called [facility] and spoke to Mason. Initial draft roller picker was @ 1630, Rn followed up and they said they will be delayed again around 45 minutes. RN made charge nurse aware. Patient is slightly getting agitated. Rn explained to patient and comforted that patient will be picked up
--- NOTE | 2020-04-03 19:15 | Internal Med Progress Note ---
Subjective Date of Service: Apr 03, 2020 Physician Name Nakul Abdi Attending Physician Jacob Tavera MD Current Medications Medications (Trade) Dose Ordered Sig/Ayah Route PRN Reason Start Time Stop Time Status Last Admin Dose Admin Acetaminophen (Tylenol) 650 mg Q4H PRN ORAL FEVER 03/29/20 18:00 04/28/20 17:59 Carvedilol (Coreg) 6.25 mg EVERY 12 HOURS ORAL 03/30/20 21:30 04/28/20 21:59 04/03/20 09:08 Dextrose (Dextrose 50%) 25 ml Q30M PRN IV Hypoglycemia 03/29/20 21:30 06/27/20 21:29 Dextrose (Dextrose 50%) 50 ml Q30M PRN IV Hypoglycemia 03/29/20 21:30 06/27/20 21:29 Divalproex Sodium (Depakote) 750 mg Q12HR ORAL 03/29/20 21:00 04/28/20 20:59 04/03/20 09:07 Duloxetine HCl (Cymbalta) 30 mg DAILY ORAL 03/30/20 09:00 06/28/20 08:59 04/03/20 09:08 Enalaprilat (Vasotec) 2.5 mg Q6H PRN IV sbp more than 160 03/29/20 18:00 04/28/20 17:59 Finasteride (Proscar) 5 mg DAILY ORAL 03/30/20 09:00 06/28/20 08:59 04/03/20 09:08 Hydralazine HCl (Apresoline) 50 mg Q6H PRN ORAL For High Blood Pressure 04/02/20 18:15 07/01/20 18:14 04/03/20 17:57 Insulin Aspart (NovoLOG) BEFORE MEALS AND HS SUBQ 03/29/20 22:00 06/27/20 21:59 04/02/20 11:42 Levothyroxine Sodium (Synthroid) 100 mcg Q24H ORAL 03/30/20 06:30 04/29/20 06:29 04/03/20 06:11 Memantine (Namenda) 10 mg Q12HR ORAL 03/29/20 21:00 04/28/20 20:59 04/03/20 09:08 Morphine Sulfate (Morphine Sulfate) 1 mg Q6H PRN IVP For Pain 03/31/20 00:00 04/07/20 00:00 03/31/20 05:09 Nitroglycerin (Ntg) 0.4 mg Q5M PRN SL Prn Chest Pain 03/29/20 18:00 04/28/20 17:59 Ondansetron HCl (Zofran) 4 mg Q6H PRN IVP Nausea & Vomiting 03/29/20 18:00 04/28/20 17:59 Pantoprazole (Protonix) 40 mg DAILY ORAL 03/30/20 09:00 04/29/20 08:59 04/03/20 09:08 Polyethylene Glycol (Miralax) 17 gm DAILYPRN PRN ORAL Constipation 03/29/20 18:00 04/28/20 17:59 04/02/20 09:23 Rivaroxaban (Xarelto) 10 mg DAILY ORAL 04/01/20 09:00 06/30/20 08:59 04/03/20 09:08 Tamsulosin HCl (Flomax) 0.4 mg DAILY ORAL 03/30/20 09:00 04/29/20 08:59 04/03/20 09:08 Temazepam (Restoril) 15 mg HSPRN PRN ORAL Insomnia 03/29/20 18:00 04/05/20 17:59 04/02/20 20:53 Timolol Maleate (timoloL maleate 0.5% Op Soln) 1 drop TWICE A DAY BOTH EYES 03/29/20 20:00 04/28/20 19:59 04/03/20 17:57 Allergies: Coded Allergies: ASPIRIN (Verified Allergy, Unknown, 03/29/20) ENOXAPARIN (Verified Allergy, Unknown, 03/29/20) HEPARIN (Verified Allergy, Unknown, 03/29/20) PEANUT (Verified Allergy, Unknown, 03/29/20) PENICILLINS (Verified Allergy, Unknown, 03/30/20) tolerated Ceftriaxone 03/29/20 Uncoded Allergies: SEAFOOD (Allergy, Unknown, 03/29/20) ROS Limited/Unobtainable: No Constitutional: Reports: no symptoms HEENT: Reports: no symptoms Cardiovascular: Reports: no symptoms Respiratory: Reports: no symptoms Gastrointestinal/Abdominal: Reports: no symptoms Genitourinary: Reports: no symptoms Neurologic/Psychiatric: Reports: no symptoms Subjective 74 YO M admitted with fever and chills. Now UTI and presumed sepsis. Cover for Int Jamie-DR Tavera Objective Last Vital Signs Date Time Temp Pulse Resp B/P (MAP) Pulse Ox O2 Delivery O2 Flow Rate FiO2 04/03/20 17:57 161/94 04/03/20 16:00 97.7 79 20 96 04/03/20 09:00 Room Air Laboratory Tests Test 04/02/20 20:50 04/03/20 06:10 04/03/20 06:35 POC Whole Blood Glucose Pending Pending White Blood Count 8.4 K/UL (4.8-10.8) Red Blood Count 5.48 M/UL (4.70-6.10) Hemoglobin 16.8 G/DL (14.2-18.0) Hematocrit 49.9 % (42.0-52.0) Mean Corpuscular Volume 91 FL (80-99) Mean Corpuscular Hemoglobin 30.7 PG (27.0-31.0) Mean Corpuscular Hemoglobin Concent 33.7 G/DL (32.0-36.0) Red Cell Distribution Width 13.7 % (11.6-14.8) Platelet Count 135 K/UL (150-450) L Mean Platelet Volume 7.3 FL (6.5-10.1) Neutrophils (%) (Auto) 64.8 % (45.0-75.0) Lymphocytes (%) (Auto) 25.2 % (20.0-45.0) Monocytes (%) (Auto) 7.1 % (1.0-10.0) Eosinophils (%) (Auto) 2.4 % (0.0-3.0) Basophils (%) (Auto) 0.6 % (0.0-2.0) Sodium Level 139 MMOL/L (136-145) Potassium Level 4.1 MMOL/L (3.5-5.1) Chloride Level 105 MMOL/L (98-107) Carbon Dioxide Level 28 MMOL/L (21-32) Anion Gap 6 mmol/L (5-15) Blood Urea Nitrogen 11 mg/dL (7-18) Creatinine 1.0 MG/DL (0.55-1.30) Estimat Glomerular Filtration Rate > 60 mL/min (>60) Glucose Level 121 MG/DL (74-106) H Calcium Level 8.7 MG/DL (8.5-10.1) Intake and Output 04/02/20 04/03/20 19:00 07:00 Intake Total 960 ml 600 ml Output Total 600 ml 1500 ml Balance 360 ml -900 ml Intake Oral 960 ml 600 ml Output Urine Total 600 ml 1500 ml # Bowel Movements 2 1 Objective Objective GENERAL: wake, more responsive, talking more. HEAD AND NECK: Pupils are equal and reactive to light. Anicteric. NECK: Supple. No JVD. LUNGS: Good air entry. No wheezing or rhonchi. Decreased air in bases. HEART: S1, S2. Distant heart sounds. No murmurs or gallops. ABDOMEN: Soft, nondistended, nontender. Morbidly obese. Bowel sounds present. EXTREMITIES: No cyanosis, clubbing, or edema. NEUROLOGIC: alert and oriented 3, CN 2-12 grossly intact, moving upper extremities, left lower extremity weaker than right side. RECTAL: Refused and deferred. GENITOURINARY: Refused and deferred. PSYCHIATRIC: Mood and affect intact. Assessment/Plan Assessment/Plan Assessment/Plan Assessment/Plan Assessment/Plan ASSESSMENT: 1. urinary tract infection=gram neg dana. 2. History of CVA. 3. Prior history of heart failure. 4. Major depression disorder. 5. Diabetic type 2. 6. BPH. 7. Bipolar disorder. 8. COPD. 9. Hyponatremia. 10. Dehydration. 11. The patient has a history of hypothyroidism. PLAN: Med /surg unit Abx: S/P Aztreonam; monitor off abx per ID Accu-Cheks. Dr. Frazier from Pulmonary Critical Care Dr. Kirk from Nephrology. DVT prophylaxis: Xarelto CODE STATUS: DNR. DC IVF. Await culture results Inf dis=Nakul Jolley MD Apr 03, 2020 19:15
--- NOTE | 2020-04-03 19:24 | NUR ---
NURSE HAND-OFF: Important Events on Shift:active D/c order, awaiting ambulance Patient Status: stable Diet: CCHO medium Pending Orders: n/a Pending Results/Labs:n/a Pending MD notification:n/a Latest Vital Signs: Temperature 97.7 , Pulse 79 , B/P 161 /94 , Respiratory Rate 20 , O2 SAT 96 , Room Air, O2 Flow Rate . Vital Sign Comment: stable Latest Valladares Fall Score: 50 Fall Risk: High Risk Safety Measures: Call light Within Reach, Bed Alarm Zone 1, Side Rails Side Rails x2, Bed position Low and Locked. Fall Precautions: Yellow Socks Yellow Gown Door Sign Patient Fall Education Report given to MONSTER Welch.
[2020-04-03 20:00] VITALS: BP 217/137
[2020-04-03] MEDS ORDERED: ALPRAZolam 0.25mg tab ORAL SCH (20:18)
[2020-04-03 21:00] VITALS: BP 177/105
--- NOTE | 2020-04-03 21:00 | NUR ---
NURSE NOTES: Patient Blood Pressure at 1999 is 217/137. Tri Tavera and Freddie notified. Dr Tavera ordered one time Xanax 0.25 mg po and if blood pressure goes down to SBP<160 continue discharge to SNF. At 2099, BP-177/105, discharge order was cancelled.
[2020-04-03] MEDS: Carvedilol 12.5mg tab ORAL SCH (21:03)
[2020-04-04 00:26] VITALS: BP 170/97
[2020-04-04 04:30] VITALS: BP 180/106
[2020-04-04] MEDS: HydrALAZINE 50mg tab ORAL PRN (05:38)
[2020-04-04] MEDS: NovoLOG Insulin Flexpen SUBQ SCH ×2 (05:38→11:34)
--- NOTE | 2020-04-04 07:04 | NUR ---
HAND-OFF: Report given to MONSTER Hernandez.
--- NOTE | 2020-04-04 07:32 | NUR ---
NURSE NOTES: Report received from MONSTER Pitts. Patient awake in bed, alert and oriented x 3-4, no SOB, bed in lowest position with breaks engaged and alarm on, denies any pain or discomfort at this time, no IV line per nursing program coordinator, pending discharge. On room air. Will continue to monitor and proceed with plan of care. Call light within reach.
[2020-04-04 08:00] VITALS: BP 153/94
[2020-04-04] MEDS: Carvedilol 12.5mg tab ORAL SCH (09:26)
[2020-04-04] MEDS: timoloL maleate 0.5% Op Soln 2.5ml BOTH EYES SCH (09:26)
[2020-04-04] MEDS: Memantine 10mg tab ORAL SCH (09:27)
[2020-04-04] MEDS: Xarelto 10mg tab ORAL SCH (09:27)
[2020-04-04] MEDS: Tamsulosin 0.4mg cap ORAL SCH (09:28)
[2020-04-04] MEDS: DULoxetine 30mg cap ORAL SCH (09:28)
--- NOTE | 2020-04-04 10:05 | NUR ---
NURSE NOTES:Skin/Wound assessment Sacral and bilateral heels skin intact Optifoam applied for protection.Patient alert and oriented states he will be leaving hospital today.
--- NOTE | 2020-04-04 10:15 | Nephrology Progress Note ---
Assessment/Plan Problem List: (1) Electrolyte imbalance (2) Dehydration (3) Hypothyroidism (4) Uncontrolled hypertension Assessment Severe dehydration Hyponatremia Sepsis, UTI BPH Depression, bipolar disease Hypothyroidism Plan April 04: No labs drawn. Stable for discharge. April 03: Labs reviewed. Renal parameters stable. April 02: Labs reviewed. Renal parameters stable. Stable for discharge from renal standpoint of view. April 01: No labs drawn today. Stable from renal standpoint of view. Hydrate Monitor electrolyte renal parameters Adjust BP meds as needed Per orders Subjective ROS Limited/Unobtainable: No Constitutional: Reports: malaise Objective Objective Last 24 Hour Vital Signs Date Time Temp Pulse Resp B/P (MAP) Pulse Ox O2 Delivery O2 Flow Rate FiO2 04/04/20 09:28 88 153/94 04/04/20 09:26 88 153/94 04/04/20 09:00 Room Air 04/04/20 08:00 96.8 88 20 153/94 (113) 96 04/04/20 05:38 180/106 04/04/20 04:30 98.6 78 18 180/106 (130) 96 04/04/20 00:26 98.4 83 18 170/97 (121) 98 04/03/20 21:03 85 177/105 04/03/20 21:00 Room Air 04/03/20 21:00 177/105 (129) 04/03/20 20:00 97.9 85 16 217/137 (163) 97 04/03/20 17:57 161/94 04/03/20 16:00 97.7 79 20 161/94 (116) 96 04/03/20 12:00 97.7 79 18 150/73 (98) 96 04/03/20 11:31 166/109 Intake and Output 04/03/20 04/04/20 19:00 07:00 Intake Total 600 ml Output Total 1500 ml 1500 ml Balance -900 ml -1500 ml Intake Oral 600 ml Output Urine Total 1500 ml 1500 ml # Voids 1 # Bowel Movements 1 Laboratory Tests 04/03/20 20:57: POC Whole Blood Glucose 193H 04/04/20 04:53: POC Whole Blood Glucose 106 Height (Feet): 6 Height (Inches): 0.00 Weight (Pounds): 233 General Appearance: no apparent distress Cardiovascular: normal rate Respiratory/Chest: decreased breath sounds Abdomen: soft Objective No change Fouladian,[place] MD Apr 04, 2020 10:14
[2020-04-04] MEDS ORDERED: NORVASC5 MG ORAL (10:44)
--- NOTE | 2020-04-04 11:12 | NUR ---
NURSE NOTES: Patient's most recent blood pressure is 139/90 and HR of 95, notified Dr. Tavera and said pt may be DC with new blood pressure medications fro SNF. Discharge medication list updated and gave report to ERICK Cazares from [facility]. P/u time will be at 12-1230 pm per [facility]. Will continue to monitor.
[2020-04-04 12:00] VITALS: BP 155/94
--- NOTE | 2020-04-04 13:03 | Pulmonology Progress Note ---
Subjective ROS Limited/Unobtainable: Yes Constitutional: Reports: no symptoms HEENT: Repors: no symptoms Respiratory: Reports: no symptoms Allergies: Coded Allergies: ASPIRIN (Verified Allergy, Unknown, 03/29/20) ENOXAPARIN (Verified Allergy, Unknown, 03/29/20) HEPARIN (Verified Allergy, Unknown, 03/29/20) PEANUT (Verified Allergy, Unknown, 03/29/20) PENICILLINS (Verified Allergy, Unknown, 03/30/20) tolerated Ceftriaxone 03/29/20 Uncoded Allergies: SEAFOOD (Allergy, Unknown, 03/29/20) Objective Last 24 Hour Vital Signs Date Time Temp Pulse Resp B/P (MAP) Pulse Ox O2 Delivery O2 Flow Rate FiO2 04/04/20 09:28 88 153/94 04/04/20 09:26 88 153/94 04/04/20 09:00 Room Air 04/04/20 08:00 96.8 88 20 153/94 (113) 96 04/04/20 05:38 180/106 04/04/20 04:30 98.6 78 18 180/106 (130) 96 04/04/20 00:26 98.4 83 18 170/97 (121) 98 04/03/20 21:03 85 177/105 04/03/20 21:00 Room Air 04/03/20 21:00 177/105 (129) 04/03/20 20:00 97.9 85 16 217/137 (163) 97 04/03/20 17:57 161/94 04/03/20 16:00 97.7 79 20 161/94 (116) 96 Intake and Output 04/03/20 04/04/20 19:00 07:00 Intake Total 600 ml Output Total 1500 ml 1500 ml Balance -900 ml -1500 ml Intake Oral 600 ml Output Urine Total 1500 ml 1500 ml # Voids 1 # Bowel Movements 1 General Appearance: WD/WN, no acute distress, other - A/A/O x 4 bedridden male HEENT: normocephalic, atraumatic, anicteric, mucous membranes moist Respiratory: chest wall non-tender, lungs clear - with moderate air exchange , normal breath sounds Cardiovascular: normal peripheral pulses, normal rate Abdomen: normal bowel sounds, soft, non tender Genitourinary: normal external genitalia Extremities: no edema Neurologic: abnormal gait - bedridden , alert, oriented x 3, responsive Musculoskeletal: atrophy - BLE Laboratory Tests 04/03/20 20:57: POC Whole Blood Glucose 193H 04/04/20 04:53: POC Whole Blood Glucose 106 Current Medications Medications (Trade) Dose Ordered Sig/Ayah Route PRN Reason Start Time Stop Time Status Last Admin Dose Admin Acetaminophen (Tylenol) 650 mg Q4H PRN ORAL FEVER 03/29/20 18:00 04/28/20 17:59 Amlodipine Besylate (Norvasc) 5 mg DAILY ORAL 04/04/20 09:00 05/04/20 08:59 04/04/20 09:28 Carvedilol (Coreg) 12.5 mg EVERY 12 HOURS ORAL 04/03/20 21:00 05/03/20 20:59 04/04/20 09:26 Dextrose (Dextrose 50%) 25 ml Q30M PRN IV Hypoglycemia 03/29/20 21:30 06/27/20 21:29 Dextrose (Dextrose 50%) 50 ml Q30M PRN IV Hypoglycemia 03/29/20 21:30 06/27/20 21:29 Divalproex Sodium (Depakote) 750 mg Q12HR ORAL 03/29/20 21:00 04/28/20 20:59 04/04/20 09:27 Duloxetine HCl (Cymbalta) 30 mg DAILY ORAL 03/30/20 09:00 06/28/20 08:59 04/04/20 09:28 Enalaprilat (Vasotec) 2.5 mg Q6H PRN IV sbp more than 160 03/29/20 18:00 04/28/20 17:59 Finasteride (Proscar) 5 mg DAILY ORAL 03/30/20 09:00 06/28/20 08:59 04/04/20 09:28 Hydralazine HCl (Apresoline) 50 mg Q6H PRN ORAL For High Blood Pressure 04/02/20 18:15 07/01/20 18:14 04/04/20 05:38 Insulin Aspart (NovoLOG) BEFORE MEALS AND HS SUBQ 03/29/20 22:00 06/27/20 21:59 04/04/20 11:34 Levothyroxine Sodium (Synthroid) 100 mcg Q24H ORAL 03/30/20 06:30 04/29/20 06:29 04/04/20 05:38 Memantine (Namenda) 10 mg Q12HR ORAL 03/29/20 21:00 04/28/20 20:59 04/04/20 09:27 Morphine Sulfate (Morphine Sulfate) 1 mg Q6H PRN IVP For Pain 03/31/20 00:00 04/07/20 00:00 03/31/20 05:09 Nitroglycerin (Ntg) 0.4 mg Q5M PRN SL Prn Chest Pain 03/29/20 18:00 04/28/20 17:59 Ondansetron HCl (Zofran) 4 mg Q6H PRN IVP Nausea & Vomiting 03/29/20 18:00 04/28/20 17:59 Pantoprazole (Protonix) 40 mg DAILY ORAL 03/30/20 09:00 04/29/20 08:59 04/04/20 09:27 Polyethylene Glycol (Miralax) 17 gm DAILYPRN PRN ORAL Constipation 03/29/20 18:00 04/28/20 17:59 04/02/20 09:23 Rivaroxaban (Xarelto) 10 mg DAILY ORAL 04/01/20 09:00 06/30/20 08:59 04/04/20 09:27 Tamsulosin HCl (Flomax) 0.4 mg DAILY ORAL 03/30/20 09:00 04/29/20 08:59 04/04/20 09:28 Temazepam (Restoril) 15 mg HSPRN PRN ORAL Insomnia 03/29/20 18:00 04/05/20 17:59 04/02/20 20:53 Timolol Maleate (timoloL maleate 0.5% Op Soln) 1 drop TWICE A DAY BOTH EYES 03/29/20 20:00 04/28/20 19:59 04/04/20 09:26 Assessment/Plan Problems: (1) UTI (urinary tract infection) (2) Episode of generalized weakness (3) Uncontrolled hypertension (4) At high risk for aspiration (5) Seizure disorder (6) Hypothyroidism (7) Depression (8) Alzheimer's dementia (9) Diabetes mellitus Assessment/Plan dc was postponed yesterday because of high bp, which is better now nice culture, all reviewed adjust BP meds check electrolytes, wnl sliding scale and diabetic diet dvt prophylaxis dvt prophylaxis. dc to [facility], All medications and treatment were reviewed Gregory Frazier MD Apr 04, 2020 13:03
[2020-04-04 13:10] VITALS: BP 120/70
--- NOTE | 2020-04-04 14:02 | Internal Med Progress Note ---
Subjective Physician Name Jacob Tavera Attending Physician Jacob Tavera MD Current Medications Medications (Trade) Dose Ordered Sig/Ayah Route PRN Reason Start Time Stop Time Status Last Admin Dose Admin Acetaminophen (Tylenol) 650 mg Q4H PRN ORAL FEVER 03/29/20 18:00 04/28/20 17:59 Amlodipine Besylate (Norvasc) 5 mg DAILY ORAL 04/04/20 09:00 05/04/20 08:59 04/04/20 09:28 Carvedilol (Coreg) 12.5 mg EVERY 12 HOURS ORAL 04/03/20 21:00 05/03/20 20:59 04/04/20 09:26 Dextrose (Dextrose 50%) 25 ml Q30M PRN IV Hypoglycemia 03/29/20 21:30 06/27/20 21:29 Dextrose (Dextrose 50%) 50 ml Q30M PRN IV Hypoglycemia 03/29/20 21:30 06/27/20 21:29 Divalproex Sodium (Depakote) 750 mg Q12HR ORAL 03/29/20 21:00 04/28/20 20:59 04/04/20 09:27 Duloxetine HCl (Cymbalta) 30 mg DAILY ORAL 03/30/20 09:00 06/28/20 08:59 04/04/20 09:28 Enalaprilat (Vasotec) 2.5 mg Q6H PRN IV sbp more than 160 03/29/20 18:00 04/28/20 17:59 Finasteride (Proscar) 5 mg DAILY ORAL 03/30/20 09:00 06/28/20 08:59 04/04/20 09:28 Hydralazine HCl (Apresoline) 50 mg Q6H PRN ORAL For High Blood Pressure 04/02/20 18:15 07/01/20 18:14 04/04/20 05:38 Insulin Aspart (NovoLOG) BEFORE MEALS AND HS SUBQ 03/29/20 22:00 06/27/20 21:59 04/04/20 11:34 Levothyroxine Sodium (Synthroid) 100 mcg Q24H ORAL 03/30/20 06:30 04/29/20 06:29 04/04/20 05:38 Memantine (Namenda) 10 mg Q12HR ORAL 03/29/20 21:00 04/28/20 20:59 04/04/20 09:27 Morphine Sulfate (Morphine Sulfate) 1 mg Q6H PRN IVP For Pain 03/31/20 00:00 04/07/20 00:00 03/31/20 05:09 Nitroglycerin (Ntg) 0.4 mg Q5M PRN SL Prn Chest Pain 03/29/20 18:00 04/28/20 17:59 Ondansetron HCl (Zofran) 4 mg Q6H PRN IVP Nausea & Vomiting 03/29/20 18:00 04/28/20 17:59 Pantoprazole (Protonix) 40 mg DAILY ORAL 03/30/20 09:00 04/29/20 08:59 04/04/20 09:27 Polyethylene Glycol (Miralax) 17 gm DAILYPRN PRN ORAL Constipation 03/29/20 18:00 04/28/20 17:59 04/02/20 09:23 Rivaroxaban (Xarelto) 10 mg DAILY ORAL 04/01/20 09:00 06/30/20 08:59 04/04/20 09:27 Tamsulosin HCl (Flomax) 0.4 mg DAILY ORAL 03/30/20 09:00 04/29/20 08:59 04/04/20 09:28 Temazepam (Restoril) 15 mg HSPRN PRN ORAL Insomnia 03/29/20 18:00 04/05/20 17:59 04/02/20 20:53 Timolol Maleate (timoloL maleate 0.5% Op Soln) 1 drop TWICE A DAY BOTH EYES 03/29/20 20:00 04/28/20 19:59 04/04/20 09:26 Allergies: Coded Allergies: ASPIRIN (Verified Allergy, Unknown, 03/29/20) ENOXAPARIN (Verified Allergy, Unknown, 03/29/20) HEPARIN (Verified Allergy, Unknown, 03/29/20) PEANUT (Verified Allergy, Unknown, 03/29/20) PENICILLINS (Verified Allergy, Unknown, 03/30/20) tolerated Ceftriaxone 03/29/20 Uncoded Allergies: SEAFOOD (Allergy, Unknown, 03/29/20) Subjective Awake, responsive, no acute distress, talking more, eating by himself, denies any chest pain or shortness of breath, WBC: 8.4 Objective Last Vital Signs Date Time Temp Pulse Resp B/P (MAP) Pulse Ox O2 Delivery O2 Flow Rate FiO2 04/04/20 13:10 96.9 88 18 120/70 (87) 98 04/04/20 09:00 Room Air Laboratory Tests Test 04/03/20 20:57 04/04/20 04:53 POC Whole Blood Glucose 193 MG/DL (74-106) H 106 MG/DL (74-106) Intake and Output 04/03/20 04/04/20 19:00 07:00 Intake Total 600 ml Output Total 1500 ml 1500 ml Balance -900 ml -1500 ml Intake Oral 600 ml Output Urine Total 1500 ml 1500 ml # Voids 1 # Bowel Movements 1 Objective GENERAL: Awake, responsive, talking more. HEAD AND NECK: Pupils are equal and reactive to light. Anicteric. NECK: Supple. No JVD. LUNGS: Good air entry. No wheezing or rhonchi. Decreased air in bases. HEART: S1, S2. Distant heart sounds. No murmurs or gallops. ABDOMEN: Soft, nondistended, nontender. Morbidly obese. Bowel sounds present. EXTREMITIES: No cyanosis, clubbing, or edema. NEUROLOGIC: alert and oriented 3, CN 2-12 grossly intact, moving upper extremities, left lower extremity weaker than right side. RECTAL: Refused and deferred. GENITOURINARY: Refused and deferred. PSYCHIATRIC: Mood and affect intact. Assessment/Plan Assessment/Plan ASSESSMENT: 1. Sepsis secondary to urinary tract infection. 2. History of CVA. 3. Prior history of heart failure. 4. Major depression disorder. 5. Diabetic type 2. 6. BPH. 7. Bipolar disorder. 8. COPD. 9. Hyponatremia. 10. Dehydration. 11. The patient has a history of hypothyroidism. PLAN: In monitor unit, Transfer to Med /surg unit monitor laboratory as well as culture. Abx: Azactam. F/U blood glucose level monitoring, Accu-Cheks. Dr. Frazier from Pulmonary Critical Care Dr. Kirk from Nephrology. DVT prophylaxis: Heparin subcu CODE STATUS: DNR. DC to SNF. Jacob Tavera MD Apr 04, 2020 14:02
--- NOTE | 2020-04-04 14:09 | Infectious Diseases Prog Note ---
Assessment/Plan Assessment: COVID19 neg x1 (03/29 rapid COVID PCR Neg) -CXR: no acute disease UTI -u/a wbc tnct, nit neg, leuk +3; ucx <10k GNR Afebrile Leukocytosis, SP -Bcx NTD Abd pain -CT abd/p: Limited assessment of the GI tract, due to lack of enteric contrast administration. Equivocal mild urinary bladder wall thickening, could in part be an artifact of under distention but cystitis possible. Correlate with clinical findings. Evidence of prior cholecystectomy. Borderline cardiomegaly with suggestion of mild pulmonary venous congestion. Incidental findings as noted, including bilateral gynecomastia, degenerative spondylosis Accelerated hypertension -CT head: Chronic and age-related changes. Negative for acute intracranial bleed or mass effect CVA HTN dysphagia R ankle OA COPD BPH hx of L5 vertebral body fracture hx of sacrum fracture seizure disorder CHF bipolar disorder hypothyroidism Dm2 Dementia contractures [place] resident([facility]) Plan: -Continue to monitor off abx --04/02 SP Aztreonam #5 --03/29 SP Ceftriaxone x1, Azithromycin x1 -f/u cx -Monitor CBC/CMP, temperatures Thank you for this consultation. Will continue to follow along with you. Discussed with RN. Subjective Allergies: Coded Allergies: ASPIRIN (Verified Allergy, Unknown, 03/29/20) ENOXAPARIN (Verified Allergy, Unknown, 03/29/20) HEPARIN (Verified Allergy, Unknown, 03/29/20) PEANUT (Verified Allergy, Unknown, 03/29/20) PENICILLINS (Verified Allergy, Unknown, 03/30/20) tolerated Ceftriaxone 03/29/20 Uncoded Allergies: SEAFOOD (Allergy, Unknown, 03/29/20) afebrile at RA off abx Objective Last 24 Hour Vital Signs Date Time Temp Pulse Resp B/P (MAP) Pulse Ox O2 Delivery O2 Flow Rate FiO2 04/04/20 13:10 96.9 88 18 120/70 (87) 98 04/04/20 12:00 96.8 83 18 155/94 (114) 98 04/04/20 09:28 88 153/94 04/04/20 09:26 88 153/94 04/04/20 09:00 Room Air 04/04/20 08:00 96.8 88 20 153/94 (113) 96 11/10/20 05:38 180/106 04/04/20 04:30 98.6 78 18 180/106 (130) 96 04/04/20 00:26 98.4 83 18 170/97 (121) 98 04/03/20 21:03 85 177/105 04/03/20 21:00 Room Air 04/03/20 21:00 177/105 (129) 04/03/20 20:00 97.9 85 16 217/137 (163) 97 04/03/20 17:57 161/94 04/03/20 16:00 97.7 79 20 161/94 (116) 96 Height (Feet): 6 Height (Inches): 0.00 Weight (Pounds): 233 HEAD AND NECK: Pupils are equal and reactive to light. Anicteric. NECK: Supple. No JVD. LUNGS: Good air entry. No wheezing or rhonchi. Decreased air in bases. HEART: S1, S2. Distant heart sounds. No murmurs or gallops. ABDOMEN: Soft, nondistended, nontender. Morbidly obese. Bowel sounds present. EXTREMITIES: No cyanosis, clubbing, or edema. Laboratory Tests Test 04/03/20 20:57 04/04/20 04:53 POC Whole Blood Glucose 193 MG/DL (74-106) H 106 MG/DL (74-106) Current Medications Medications (Trade) Dose Ordered Sig/Ayah Route PRN Reason Start Time Stop Time Status Last Admin Dose Admin Acetaminophen (Tylenol) 650 mg Q4H PRN ORAL FEVER 03/29/20 18:00 04/28/20 17:59 Amlodipine Besylate (Norvasc) 5 mg DAILY ORAL 04/04/20 09:00 05/04/20 08:59 04/04/20 09:28 Carvedilol (Coreg) 12.5 mg EVERY 12 HOURS ORAL 04/03/20 21:00 05/03/20 20:59 04/04/20 09:26 Dextrose (Dextrose 50%) 25 ml Q30M PRN IV Hypoglycemia 03/29/20 21:30 2 21:29 Dextrose (Dextrose 50%) 50 ml Q30M PRN IV Hypoglycemia 03/29/20 21:30 06/27/20 21:29 Divalproex Sodium (Depakote) 750 mg Q12HR ORAL 03/29/20 21:00 04/28/20 20:59 04/04/20 09:27 Duloxetine HCl (Cymbalta) 30 mg DAILY ORAL 03/30/20 09:00 06/28/20 08:59 04/04/20 09:28 Enalaprilat (Vasotec) 2.5 mg Q6H PRN IV sbp more than 160 03/29/20 18:00 04/28/20 17:59 Finasteride (Proscar) 5 mg DAILY ORAL 03/30/20 09:00 06/28/20 08:59 04/04/20 09:28 Hydralazine HCl (Apresoline) 50 mg Q6H PRN ORAL For High Blood Pressure 04/02/20 18:15 07/01/20 18:14 04/04/20 05:38 Insulin Aspart (NovoLOG) BEFORE MEALS AND HS SUBQ 03/29/20 22:00 06/27/20 21:59 04/04/20 11:34 Levothyroxine Sodium (Synthroid) 100 mcg Q24H ORAL 03/30/20 06:30 04/29/20 06:29 04/04/20 05:38 Memantine (Namenda) 10 mg Q12HR ORAL 03/29/20 21:00 04/28/20 20:59 04/04/20 09:27 Morphine Sulfate (Morphine Sulfate) 1 mg Q6H PRN IVP For Pain 03/31/20 00:00 04/07/20 00:00 03/31/20 05:09 Nitroglycerin (Ntg) 0.4 mg Q5M PRN SL Prn Chest Pain 03/29/20 18:00 04/28/20 17:59 Ondansetron HCl (Zofran) 4 mg Q6H PRN IVP Nausea & Vomiting 03/29/20 18:00 04/28/20 17:59 Pantoprazole (Protonix) 40 mg DAILY ORAL 03/30/20 09:00 04/29/20 08:59 04/04/20 09:27 Polyethylene Glycol (Miralax) 17 gm DAILYPRN PRN ORAL Constipation 03/29/20 18:00 04/28/20 17:59 04/02/20 09:23 Rivaroxaban (Xarelto) 10 mg DAILY ORAL 04/01/20 09:00 06/30/20 08:59 04/04/20 09:27 Tamsulosin HCl (Flomax) 0.4 mg DAILY ORAL 03/30/20 09:00 04/29/20 08:59 04/04/20 09:28 Temazepam (Restoril) 15 mg HSPRN PRN ORAL Insomnia 03/29/20 18:00 04/05/20 17:59 04/02/20 20:53 Timolol Maleate (timoloL maleate 0.5% Op Soln) 1 drop TWICE A DAY BOTH EYES 03/29/20 20:00 04/28/20 19:59 04/04/20 09:26 Riana Wong M.D. Apr 04, 2020 14:09
--- NOTE | 2020-04-04 14:16 | NUR ---
NURSE NOTES: Patient was discharged at 1405 in stable condition with 2 typing section chief. DC paper works signed, no belongings listed. No c/o any pain upon discharge. Vital signs WNL. Report given to Mac from [facility] ([place]) IV line and ID band removed. Left in stable condition.
--- NOTE | 2020-04-04 22:19 | CDS Physician Query ---
Clarification is required for compliance, coding accuracy, and to reflect severity of illness for this patient Dear Dr. Tavera Date: 04/04/20 Train Controller/CDS Name: Prince Torres Sepsis secondary to urinary tract infection, History of CVA, history of heart failure, documented in IM progress notes on 04/04/20 UTI, Leukocytosis, CHF, documented in Infectious Disease on 04/04/20 Labs: Pro-BNP 2896, 832 Medications: Coreg, Vasotec, Norvasc, Nitroglycerin 2D Echocardiogram: Left ventricular ejection fraction estimated to be 55%. Please Clarify: Acuity [ x ] Acute [ ] Chronic [ ] Acute on Chronic Type [ ] Systolic [ x ] Diastolic [ ] Systolic & Diastolic (Combined) [ ] Other: Present on Admission: [ x ] Yes [ ] No [ ] Clinically Undetermined Physician signature Date Please also document in your Progress Notes and/or Discharge Summary and indicate if the condition was present on admission. GTD
--- NOTE | 2020-04-06 12:13 | Discharge Summary ---
Discharge Summary Discharge Summary _ DATE OF ADMISSION: 03/29/2020 DATE OF DISCHARGE:04/04/2020 DISCHARGED BY: Dr. Cyr REASON FOR ADMISSION: 74 years old male with past medical history significant for congestive heart failure, dysphagia, GERD, osteoarthritis of right ankle, dementia, COPD, BPH, hypothyroidism, diabetes mellitus, seizure disorder, history of CVA presented from the care home facility due to fever and chills. Shortly after initial evaluation in emergency department , patient was admitted in the hospital with sepsis , secondary to UTI . Patient with a DNR status with selective treatment. Initial blood pressure was 190/100. Troponin negative, pro BNP 2896 . EKG revealed sinus rhythm with first-degree AV block with premature ventricular complexes or fusion complexes. Left anterio r fascicular block. Left ventricular hypertrophy Laboratory work-up revealed leukocytosis with WBC 14.8 , hemoglobin 19.4, h ematocrit 57.8. Rapid COVID-19 was negative Sodium 130, chloride 95. Magnesium 1.7. BUN 14, creatinine 1.0 . Lactic acid 1.2 . Urinalysis revealed evidence of pyuria, few bacteria ,+1 protein . Chest x-ray revealed no acute cardiopulmonary pathology. CT of the head demonstrated chronic and age-related changes , but no evidence of acute intracranial bleeding or mass-effect. CT scan of the abdomen and pelvis showed equivocal mild urinary bladder wall thickening. Evidence of prior cholecystectomy. Borderline cardiomegaly with suggestion of mild pulmonary venous congestion. CONSULTANTS: pulmonary Dr. Frazier ID specialist Dr. Wong uniform cap operator Dr. Kirk HOSPITAL COURSE: Patient admitted and started on broad-spectrum antibiotics. Supplemental oxygen provided and titrated to keep pulse oximetry above 92%. Strict aspiration precaution maintained. Chest x-ray was clear. Swallow evaluation was done , and diet texture provided as per speech therapist recommendation with strict aspiration precaution. Venous duplex bilateral lower extremity revealed no evidence of acute DVT. Lipid panel remained stable. Patient was continued on low-dose of Xarelto. Echocardiogram revealed preserved ejection fraction of 55%. Volumes were closely monitored. Pro BNP from 2896 down to 832. Antihypertensive regimen was optimized , and blood pressure stabilized. Renal parameters and electrolytes were closely monitored, electrolytes corrected as needed . Proscar and Flomax continued. Nephrotoxins were avoided. Patient remained afebrile , leukocytosis resolved . Patient completed treatment with antibiotic while in the hospital. TSH within normal limits . Current dose of levothyroxine continued. Blood sugar was managed with sliding scale of insulin. Supportive care provided. Patient clinically stabilized and was ready for discharge to care home facility for continuation of care. FINAL DIAGNOSES: Sepsis Probable UTI Hypertension with initial hypertensive urgency Dehydration Hyponatremia Acute diastolic heart failure High aspiration risk History of CVA COPD Diabetes mellitus Hypothyroidism BPH Dementia DISCHARGE MEDICATIONS: See Medication Reconciliation list. DISCHARGE INSTRUCTIONS: Patient was discharged to the care home facility. Follow up with medical doctor at the facility. I have been assigned to dictate discharge summary for this account. Shelly Keenan NP Apr 06, 2020 12:13
== END 2020-04-04 14:05 | DRG 871 ==
LOC: EDBD 11:28 → EMR 11:50 → 2E 12:33 → EDBEDREQ 13:52 → 4E 03-31 22:27
DX: A41.9 Sepsis, unspecified organism (principal); I50.31 Acute diastolic (congestive) heart failure; N39.0 Urinary tract infection, site not specified; E87.1 Hypo-osmolality and hyponatremia; G82.20 Paraplegia, unspecified; J44.9 Chronic obstructive pulmonary disease, unspecified; Z88.6 Allergy status to analgesic agent; Z88.0 Allergy status to penicillin; Z86.73 Personal history of transient ischemic attack (TIA), and cerebral infarction without residual deficits; E03.9 Hypothyroidism, unspecified; E86.0 Dehydration; E11.9 Type 2 diabetes mellitus without complications; N40.0 Benign prostatic hyperplasia without lower urinary tract symptoms; G40.909 Epilepsy, unspecified, not intractable, without status epilepticus; Z79.84 Long term (current) use of oral hypoglycemic drugs; I11.0 Hypertensive heart disease with heart failure; R13.10 Dysphagia, unspecified; M19.071 Primary osteoarthritis, right ankle and foot; F31.9 Bipolar disorder, unspecified; M24.50 Contracture, unspecified joint; Z90.49 Acquired absence of other specified parts of digestive tract; E87.8 Other disorders of electrolyte and fluid balance, not elsewhere classified; I16.0 Hypertensive urgency; G30.9 Alzheimer's disease, unspecified; F02.80 Dementia in other diseases classified elsewhere, unspecified severity, without behavioral disturbance, psychotic disturbance, mood disturbance, and anxiety
CPT/HCPCS: 36415; 70450; 71045; 74177; 80048; 80053; 80061; 80076; 80164; 81001; 81003; 82533; 82550; 82607; 82728; 82746; 82962; 82977; 83540; 83550; 83605; 83690; 83735; 83880; 83930; 83935; 84100; 84300; 84439; 84443; 84481; 84484; 84550; 85025; 85610; 85730; 86140; 87040; 87081; 87086; 93005; 93306; 93970; 96365; 96375; 96376; 99285; J1815; J7030; U0002